=== PATIENT | female | born 1940 | race Caucasian/White ===

== ENCOUNTER → 2017-08-30 11:27 | Outpatient (CLI) | payer MEDICARE, SELFPAY ==
--- NOTE | 2017-08-30 11:34 | DI.RAD.S_ITS ---
PROCEDURE: XR CERVICAL SPINE 4V OR 5V INDICATIONS: cervical stenosis with upper extremity paresthesias TECHNIQUE: 5 views of the cervical spine acquired. COMPARISON: None. FINDINGS: Bones: No fractures or dislocations to the C7 level. Oblique images demonstrate bony foraminal stenoses at C5-6 and C6-7 bilaterally. There is disc degeneration and mild spondylosis as well as facet arthropathy at C3-4, C4-5, C5-6, C6-7 and C7-T1. Grade 1 anterolisthesis at C5-6. Soft tissues: No prevertebral soft tissue swelling. IMPRESSION: 1. Cervical lordosis is maintained. No fractures identified. Grade 1 anterolisthesis C5-6 is likely degenerative. 2. Multilevel degenerative disc disease and facet arthropathy, appearing most marked at C6-7. 3. Foraminal encroachment by hypertrophic changes C5-6 and C6-7, left greater than right. Dictated by: Daniel Nobles M.D. on 08/30/2017 at 12:02 Approved by: Daniel Nobles M.D. on 08/30/2017 at 12:06
--- NOTE | 2017-08-30 11:34 | DI.MRI.S_ITS ---
PROCEDURE: MR CERVICAL SPINE WO CON INDICATIONS: cervical stenosis with upper extremity paresthesias TECHNIQUE: Noncontrast sagittal T1 spin echo and T2 fast spin echo, sagittal STIR, foraminal oblique sagittal T2 fast spin echo, and axial gradient echo or T2 fast spin echo through the cervical spine. COMPARISON: [facility], RG, XR C-SPINE 2-3V, 03/12/2005, 8:23. [facility], CR, XR CERVICAL SPINE 4V OR 5V, 08/30/2017, 11:13. FINDINGS: Image quality: Excellent. Alignment and Curvature: There is trace anterolisthesis of C3 on C4, C4 on C5, C5 on C6, C7 on T1, T1 on T2, Grade I T2 on T3. Bone Marrow: Marrow demonstrates normal overall signal. Spinal Cord: Visualized spinal cord has normal size and signal. No cerebellar tonsillar herniation. Paraspinous Soft Tissues: No paravertebral masses. Prevertebral soft tissues are normal in thickness. Discs: Moderate to severe desiccation is present throughout the cervical spine, most severe at C5-6 and C6-7. C2-C3: No disc bulge, spinal stenosis or foraminal narrowing. C3-C4: Mild disc bulge without spinal stenosis. Moderate bilateral foraminal narrowing with uncovertebral hypertrophy. C4-C5: Mild disc bulge without spinal stenosis. Mild to moderate right and moderate left foraminal narrowing with uncovertebral hypertrophy. C5-C6: Mild disc bulge without spinal stenosis. Moderate bilateral foraminal narrowing with uncovertebral hypertrophy. C6-C7: Mild disc bulge without spinal stenosis. Severe left and moderate right foraminal narrowing with uncovertebral hypertrophy. C7-T1: No disc bulge or spinal stenosis. Mild left foraminal narrowing with uncovertebral hypertrophy. IMPRESSION: 1. Multilevel disc bulges. 2. No spinal stenosis. 3. Significant multilevel foraminal narrowing severe at C6-7 predominantly secondary to uncovertebral arthropathy. Dictated by: Sally Ch M.D. on 08/30/2017 at 15:26 Approved by: Sally Ch M.D. on 08/30/2017 at 15:32
== END ==
PROVIDERS: PCP Internal Medicine; Visit Provider Physical Medicine & Rehabilitation
DX: M48.02 Spinal stenosis, cervical region (principal); R20.2 Paresthesia of skin; M50.222 Other cervical disc displacement at C5-C6 level
CPT/HCPCS: 72050; 72141

== ENCOUNTER 2017-11-13 07:29 | Outpatient (CLI) | payer MEDICARE, SELFPAY ==
[2017-11-13] VITALS (9 sets, daily range): BP systolic 104–130; BP diastolic 68–81; PULSE 82–94; RESP 16–18; TEMP 37.2; O2SAT 95–98
--- NOTE | 2017-11-13 07:31 | DI.RAD.S_ITS ---
PROCEDURE: PAIN C/T INTERLAMINAR INJECT INDICATIONS: Cervical stenosis FINDINGS: Fluoroscopic spot filming was performed to verify placement of spinal needles at the C6-C7 level(s), as labeled on the films. Appropriate location(s) of the needle tip(s) was confirmed by injection of iodinated contrast. IMPRESSION: Fluoroscopy guidance for pain management. Dictated by: Heena Hernandez M.D. on 11/13/2017 at 14:28 Approved by: Heena Hernandez M.D. on 11/13/2017 at 14:28
--- NOTE | 2017-11-13 08:15 | PM.PROC.1 ---
Procedures Date/Time Date of procedure: 11/13/17 Time of procedure: 08:15 General Procedure description: PREOP DIAGNOSIS 1. CERVICAL STENOSIS, 2. CERVICAL HNP WITH UPPER EXTREMITY RADICULAR FEATURES, POST OP DIAGNOSIS 1. CERVICAL STENOSIS, 2. CERVICAL HNP WITH UPPER EXTREMITY RADICULAR FEATURES, PROCEDURES 1. FLUORSCOPICALLY GUIDED CONTRAST CONTROLLED INTERLAMINAR EPIDURAL STEROID INJECTION - C6/7 TL KISHAN PHYSICIAN: Shawn Jay, INDICATIONS Aubrie is referred by Dr. Perry for treatment of Cervical HNP with Upper Extremity Paresthesias. FINDINGS Cervical Stenosis due to disc deterioration and nerve root irritation and nerve root irritation DESCRIPTION OF PROCEDURE Fluoroscopically guided, contrast-controlled C6/7 translaminar epidural steroid injection with conscious sedation. Following denial of allergy and review of potential side effects and complications, including, but not necessarily limited to, infection, allergic reaction, local tissue breakdown, temporary as well as permanent nerve injury, stroke, paralysis, and possible , the patient indicated that patient understood and agreed to proceed. An informed consent document was signed by the patient, witnessed by a nurse, and placed in the patient's chart. Additionally, other treatment options including modalities, medications, and physical therapy were reviewed with the patient. After review of previous anaesthesic history and IV conscious sedation the patient was deemed safe to proceed with todays procedure with IV conscious sedation as ASA class II designation. Safety time-out was performed to confirm patient ID, procedure to be performed and site of procedure. IV sedation was accomplished with a combination of 4mg of Versed administered by the RN after DO order, titrated to patient comfort during the course of the procedure while the patient remained responsive to all verbal commands. In the prone position, following sterile prep and drape of the cervical region, the C6/7 translaminar space was identified fluoroscopically. The skin was anesthetized via a 25-gauge 1.5-inch needle with 1% lidocaine solution. At this point, a 25-gauge, 2.5-inch short bevel spinal needle was atraumatically introduced and advanced under fluoroscopic guidance into epidural space at the C6/7 translaminar space. Depth was confirmed on lateral view. Radiological data, including multiple fluoroscopic views of the cervical spine, reveal a spinal needle at the C6/7 translaminar space. Lateral views then show placement of the needle in the epidural space. Subsequent views show contrast material flowing superiorly and inferiorly in the epidural space. DSA fluoroscopy with live contrast injection, once again, confirmed no vascular or intrathecal uptake. At this point, using loss of resistance technique with saline and air, the epidural space was entered. Following negative aspiration, injection of approximately 1.5 cc of Isovue-200 with live fluoroscopy in the AP view confirmed epidural flow in the epidural space without vascular or intrathecal uptake observed. Subsequently, a test dose of 1 cc of 1% lidocaine solution was injected and patient was observed for two minutes without signs or symptoms of complications, including abdominal pain, shortness of breath, bilateral upper or lower extremity weakness, nausea and vomiting, prior to steroid injection. At this point, 3 cc or 30 mg of dexamethasone was then injected without incident. The patient tolerated the procedure well without signs or symptoms of complications prior to being transferred to the recovery area for further monitoring, The patient was then transferred to the recovery area where they were observed for an appropriate period of time after the injection. The patient reported a VAS score of 6 prior to the procedure and a post-procedure VAS of 0. Total Fluoroscopy Time: 37.0 seconds Total Conscious Time: 24min POST OP INSTRUCTIONS The patient was provided a Pain Log to continue to record their response to the target-specific procedure prior to follow-up visit with the referring provider. Additionally, specific post-injection care instructions and a contact number to our office were provided if concerns arise regarding possible complications associated with the procedure are suspected. Shawn Jay, Complications: none
[2017-11-13] MEDS: MIDAZOLAM 5 MG/5 ML VIAL IV (08:42)
[2017-11-13] MEDS: IOPAMIDOL 15 ML VIAL 3 ML INJ (08:54)
[2017-11-13] MEDS: DEXAMETHASONE 10 MG/ML VIAL 30 MG INJ (08:54)
[2017-11-13] MEDS: LIDOCAINE 1% 20 ML INJ 5 ML INJ (08:54)
--- NOTE | 2017-11-14 14:01 | PC.NURSE ---
POST PROCEDURE CALL MADE. CONTACTED PT. PT STATES SHE IS FEELING BETTER AND DENIES QUESTIONS/CONCERNS.
== END 2017-11-13 09:58 ==
LOC: RAD 07:30
PROVIDERS: PCP Internal Medicine; Visit Provider Physical Medicine & Rehabilitation
DX: M48.02 Spinal stenosis, cervical region (principal); M50.123 Cervical disc disorder at C6-C7 level with radiculopathy
CPT/HCPCS: 62321; 99152; 99153; J1100; J2250

== ENCOUNTER → 2017-12-05 11:59 | Outpatient (CLI) | payer MEDICARE, SELFPAY ==
--- NOTE | 2017-12-05 | DI.CT.S_ITS ---
PROCEDURE: CT HEAD/BRAIN WO CON INDICATIONS: INJURY OF HEAD TECHNIQUE: Noncontrast 4.5 mm thick angled axial sections acquired from the foramen magnum to the vertex, with coronal and sagittal reformats. For radiation dose reduction, the following was used: automated exposure control, adjustment of mA and/or kV according to patient size. COMPARISON: [facility], , STROKE PROTOCOL, 10/31/2010, 12:35. FINDINGS: Image quality: Excellent. CSF spaces: Basal cisterns are patent. No extra-axial fluid collections. Ventricles are moderately prominent, similar to the prior study. There is mild parenchymal volume loss.. Brain: No midline shift. No intracranial masses or hemorrhage. Bella-white matter interface is normal. Confluent areas of low attenuation are seen within the periventricular and deep white matter of the supratentorial brain. Skull and face: Calvarium and visualized facial bones are intact, without suspicious lesions. Sinuses: Visualized sinuses and mastoids are clear. IMPRESSION: 1. No acute intracranial hemorrhage. 2. Chronic small vessel ischemic changes and parenchymal volume loss have a similar overall appearance to the examination from 2000. Dictated by: Danny Green M.D. on 12/05/2017 at 11:18 Approved by: Danny Green M.D. on 12/05/2017 at 11:20
== END ==
PROVIDERS: PCP Internal Medicine; Visit Provider Internal Medicine
DX: S09.90XA Unspecified injury of head, initial encounter (principal)
CPT/HCPCS: 70450

== ENCOUNTER → 2017-12-11 19:16 | Outpatient (CLI) | payer MEDICARE, SELFPAY ==
--- NOTE | 2017-12-11 19:17 | DI.MRI.S_ITS ---
PROCEDURE: MR HEAD/BRAIN WO CON INDICATIONS: head injury TECHNIQUE: Noncontrast axial T1 spin echo, axial T2 fast spin echo, sagittal and axial FLAIR, coronal T2 fast spin echo, axial gradient echo, axial diffusion and ADC through the brain. COMPARISON: [facility], CT, CT HEAD/BRAIN WO CON, 12/05/2017, 11:58. FINDINGS: Image quality: Excellent. CSF Spaces: Basal cisterns are patent. No extra-axial fluid collections. Ventricles are normal in size and shape. Brain: No intracranial masses or hemorrhage. Bella/white matter interface is normal. Brainstem appears normal. Diffusion-weighted images demonstrate no acute ischemic insult. No chronic ischemic insults. Normal intravascular flow voids are present. Skull and face: Calvarium has normal marrow signal. Orbits appear normal. Sinuses: Sinuses and mastoids are clear. IMPRESSION: Moderate microvascular atherosclerotic change in the deep white matter of each hemisphere, expected for age. No traumatic brain injury or intracranial hemorrhage is found. No skull fracture is suspected. Dictated by: Leonidas Mckenzie M.D. on 12/12/2017 at 8:01 Approved by: Leonidas Mckenzie M.D. on 12/12/2017 at 8:03
== END ==
PROVIDERS: PCP Internal Medicine; Visit Provider Internal Medicine
DX: S09.90XA Unspecified injury of head, initial encounter (principal); R51 Headache
CPT/HCPCS: 70551

== ENCOUNTER → 2018-03-29 09:56 | Outpatient (CLI) | payer MEDICARE, OTHER, SELFPAY ==
--- NOTE | 2018-03-29 | DI.RAD.S_ITS ---
PROCEDURE: XR KUB INDICATIONS: KIDNEY STONES TECHNIQUE: One view of the abdomen acquired. COMPARISON: [facility], CT, KIDNEY/ URETER/BLADDER, 01/22/2017, 13:07. [facility], CR, KUB XRAY (1 VIEW ABDOMEN), 03/19/2017, 8:43 FINDINGS: Surgical changes and devices: None. Bowel: Bowel gas pattern is normal. Soft tissues: No shifting bilateral renal stones are seen, the largest seen on the right measuring 6-7 mm. Visualized solid organ contours appear normal in size. Bones: No suspicious bony lesions. Mild levoconvex scoliotic curvature is noted. Age-appropriate bony degenerative changes are seen. Hip degenerative changes are seen. IMPRESSION: Nonobstructing kidney stones are seen. If it would be helpful for clinical management decision making, please consider a dedicated noncontrast CT of the abdomen and pelvis for further evaluation. Dictated by: Morris Rodriguez M.D. on 03/29/2018 at 9:54 Approved by: Morris Rodriguez M.D. on 03/29/2018 at 9:56
[2018-03-29 14:31] LABS: Bacteria Urine None Seen; RBC Urine None Seen (0-5/HPF)
[2018-03-29 15:27] LABS: Appearance Urine UA CLEAR; Bilirubin Urine UA NEGATIVE (NEGATIVE); Color Urine UA YELLOW; Glucose Urine UA NEGATIVE (Negative); Ketones Urine UA NEGATIVE (NEGATIVE); Leukocyte Esterase Urine UA TRACE (NEGATIVE); Nitrite Urine UA NEGATIVE (Negative); Occult Blood Urine UA TRACE-INTACT (Negative); Protein Urine UA NEGATIVE (Negative); Specific Gravity Urine UA <=1.005 (1.000-1.035); Urobilinogen Urine UA 0.2 E.U./dL (0.2)
[2018-03-29 15:33] LABS: Culture Indicated Urine Specimen Cultured; Squamous Epithelial Cell Urine None Seen; WBC Urine 1-5/HPF (0-5/HPF)
== END ==
PROVIDERS: PCP Internal Medicine; Visit Provider Specialist
DX: N20.0 Calculus of kidney (principal)
CPT/HCPCS: 74018; 81001; 87086

== ENCOUNTER → 2018-04-02 08:49 | Outpatient (CLI) | payer MEDICARE, OTHER, SELFPAY ==
--- NOTE | 2018-04-02 | DI.CT.S_ITS ---
PROCEDURE: CT KIDNEY URETER BLADDER (KUB) INDICATIONS: KIDNEY STONES TECHNIQUE: Noncontrast 5 mm thick sections acquired from the diaphragms to the symphysis. 5 mm thick coronal and sagittal reformats were then performed. For radiation dose reduction, the following was used: automated exposure control, adjustment of mA and/or kV according to patient size. COMPARISON: [facility], CT, KIDNEY/ URETER/BLADDER, 01/22/2017, 13:07. FINDINGS: Image quality: Excellent. Lung bases: Lung bases are clear. Heart size is normal. Urinary system: On the left, there are numerous left renal calculi measuring up to 5 mm image 43 series 2. There is also dilatation of the left extrarenal pelvis although no definite left ureteral calculus is currently visualized. No bladder calculi are seen. There is a punctate right pelvic ulceration near the course of the right ureter on image 72 series 2 which is thought to be extraluminal probably phlebolith however multiple mid and proximal right ureteral calculi are seen for example measuring up to 6 mm on image 57 series 2 although this could be 2 adjacent smaller calculi. Additional proximal right ureteral catheter is measuring 5 mm on image 45 series 2. There is moderate to severe right hydronephrosis. Additional sub-5 mm right renal calculi are present measuring up to approximately 3 mm. No perinephric stranding is seen. Other solid organs: Liver is normal in size. Gallbladder negative. Pancreas is normal in contours. Spleen is normal in size. No adrenal nodules. Peritoneum and bowel: Unenhanced bowel loops demonstrate normal wall thickness and caliber. No free fluid or air. Appendix not clearly identified however no suspicious right lower quadrant or pericecal inflammatory changes. Nodes and vessels: No retroperitoneal or mesenteric adenopathy by size criteria. Aorta and inferior vena cava are normal in caliber. Abdominal wall: No ventral hernias. Pelvis: No free pelvic fluid. No inguinal hernias or adenopathy. Bones: No suspicious bony lesions. Extensive multilevel discogenic changes and facet arthropathy. No vertebral body compression fractures. IMPRESSION: Moderate to severely obstructive multiple right ureteral calculi as detailed above. These are located within the mid and proximal segments. Additional punctate right pelvic calcification near the course of the distal right ureter is thought to be extraluminal probably phlebolith. Additional bilateral 5 mm or less nephrolithiasis. Prominent left extrarenal pelvis however this appears to be improved since 01/22/17 and no left ureteral calculi are currently visualized. Dictated by: Marco A Rose M.D. on 04/02/2018 at 8:30 Approved by: Marco A Rose M.D. on 04/02/2018 at 8:40
== END ==
PROVIDERS: PCP Internal Medicine; Visit Provider Specialist
DX: N13.2 Hydronephrosis with renal and ureteral calculous obstruction (principal)
CPT/HCPCS: 74176

== ENCOUNTER → 2018-04-12 09:27 | Outpatient (CLI) | payer MEDICARE, OTHER, SELFPAY ==
--- NOTE | 2018-04-12 | DI.RAD.S_ITS ---
PROCEDURE: XR KUB INDICATIONS: KIDNEY STONES TECHNIQUE: One view of the abdomen acquired. COMPARISON: [facility], CR, XR KUB, 03/29/2018, 10:25. FINDINGS: Surgical changes and devices: None. Bowel: Bowel gas pattern is normal. Soft tissues: Bilateral kidney stones are again noted, unchanged. Largest right-sided stone measures approximately 6 mm. The largest left sided stone measures approximately 5 mm. Visualized solid organ contours appear normal in size. Bones: No suspicious bony lesions. IMPRESSION: Unchanged findings. Bilateral kidney stones. Dictated by: Raghav Mcknight M.D. on 04/12/2018 at 11:05 Approved by: Raghav Mcknight M.D. on 04/12/2018 at 11:07
== END ==
PROVIDERS: PCP Internal Medicine; Visit Provider Specialist
DX: N20.0 Calculus of kidney (principal)
CPT/HCPCS: 74018

== ENCOUNTER 2018-04-15 07:22 | Emergency (ER) | payer MEDICARE, OTHER, SELFPAY ==
[2018-04-15 07:30] VITALS: BP 142/68; PULSE 96; RESP 18; O2SAT 98; BMI 25.8
--- NOTE | 2018-04-15 07:32 | DI.RAD.S_ITS ---
PROCEDURE: XR SHOULDER RT MIN 2V INDICATIONS: Fall and Pain. TECHNIQUE: 3 views of the shoulder were acquired. COMPARISON: [facility], SHOULDER MINIMUM 2VIEW RIGHT, 11/10/2015, 16:11. [facility], SHOULDER MINIMUM 2VIEW RIGHT, 10/08/2012, 12:06. FINDINGS: Bones: There is mild widening of the right acromioclavicular joint which now measures 7 mm in width/separation, which is increased from comparison exam of 11/10/15 when it measured less than 2 mm in width/separation. There are mild degenerative change of the right shoulder including glenohumeral joint osteophyte formation and small calcifications along the lateral right humeral head that may represent the sequela of rotator cuff injury. Soft tissues: There is mild soft tissue swelling overlying the right acromioclavicular joint. IMPRESSION: Mild widening of the right acromioclavicular joint since comparison exam of 11/10/15, which may represent sequela of acromioclavicular joint injury/separation. Correlation with point tenderness recommended. Dictated by: David West M.D. on 04/15/2018 at 8:36 Approved by: David West M.D. on 04/15/2018 at 8:51
--- NOTE | 2018-04-15 07:43 | ED_ITS ---
HPI - Trauma General Chief Complaint: Extremity Injury, Upper Stated Complaint: FALL ON ICE TODAY, RIGHT SHOULDER PAIN Time Seen by Provider: 04/15/18 07:43 Source: patient and family Mode of arrival: ambulatory Limitations: no limitations History of Present Illness HPI narrative: 78-year-old female here for evaluation of right shoulder injury. She states she walked out to get the paper this morning as she was walking back in she slipped on the snow and ice and landed on her right shoulder. She did not hit her head. No loss of consciousness. Is not on anticoagulation. She was able to get up and walk afterwards. Her only symptoms or pain in her right shoulder. No prior injury to her shoulder. Related Data Home Medications Medication Instructions Recorded Confirmed CALCIUM CARBONATE (#CALCIUM) #0 09/30/11 12/17/17 Fish Oil 1,000 mg PO QDAY #0 tab 01/05/16 12/17/17 acetaminophen-codeine 1 tab PO #0 tab 01/05/16 12/17/17 amlodipine [Norvasc] 10 mg PO QDAY #0 01/05/16 12/17/17 biotin 5,000 mcg PO #0 01/05/16 12/17/17 celecoxib [Celebrex] 200 mg PO QDAY #0 01/05/16 12/17/17 doxazosin [Cardura] 8 mg PO #0 tab 01/05/16 12/17/17 gabapentin [Neurontin] 300 mg PO HS #0 01/05/16 12/17/17 losartan 50 mg PO QDAY #0 01/05/16 12/17/17 pneumoc 13-peggy conj-dip cr(PF) 0.5 ml IM X1 #1 ea 01/05/16 12/17/17 [Prevnar 13 (PF)] tramadol 50 mg PO QDAY #0 01/05/16 12/17/17 bupropion HCl SR 100 mg tablet,12 100 mg PO DAILY tab 08/24/17 12/17/17 hr sustained-release docusate sodium 100 mg capsule 100 mg PO BID 08/24/17 12/17/17 alendronate 70 mg tablet 70 mg PO QWEEK 10/04/17 12/17/17 Previous Rx's Medication Instructions Recorded nitrofurantoin monohyd/m-cryst 100 mg PO BIDCC #14 cap 01/05/17 [Macrobid] cyclobenzaprine 10 mg tablet 10 mg PO TID PRN #60 tab 01/15/18 acetaminophen-codeine 1 tab PO Q4-6H PRN #14 tab 04/15/18 [Tylenol-Codeine #3] Allergies Allergy/AdvReac Type Severity Reaction Status Date / Time losartan [Losartan] Allergy Intermediate HIVES Verified 04/15/18 07:30 lactose Allergy Mild RASH Verified 04/15/18 07:30 latex Allergy Mild ITCH Verified 04/15/18 07:30 aspirin AdvReac Mild N/V Verified 04/15/18 07:30 hydrocodone AdvReac Mild N/V Verified 04/15/18 07:30 oxycodone AdvReac Mild N/V Verified 04/15/18 07:30 Review of Systems Constitutional Denies fever(s), Denies frequent falls and Denies headache(s) Eyes Denies blurry vision and Denies diplopia ENT Ears, Nose, Mouth, and Throat: Denies headache(s) Cardiovascular Denies chest pain and Denies dyspnea Respiratory Denies dyspnea Gastrointestinal Gastrointestinal: Denies abdominal pain Musculoskeletal Denies myalgias and Reports arthralgias (Right shoulder pain) Integumentary/Breasts Denies lesions and Denies rash Neurologic Denies behavioral changes, Denies frequent falls and Denies headache(s) Psychiatric Denies behavioral changes Hematologic/Lymphatic Comments: Not on anticoagulation [facility] Medical History Hypertension (Acute) Surgical History No pertinent past surgical history (Acute) Social History Smoking Status: Never smoker Social History Smoking Status: Never smoker Exam Initial Vital Signs Initial Vital Signs: Vital Signs Pulse Rate 96 H 04/15/18 07:30 Respiratory Rate 18 04/15/18 07:30 Blood Pressure 142/68 H 04/15/18 07:30 Pulse Oximetry 98 04/15/18 07:30 Const General: cooperative, comfortable, well developed, well groomed and No acute distress Orientation: alert, awake and oriented x3 HENMT Head: normal to inspection and normocephalic Resp Effort & Inspection: normal respiratory effort Cardio Rate: regular rate Skin Lesions: no lesions Rashes: no rashes Neuro General: alert, awake and oriented x3 Cognition: normal cognition Speech: speech normal Extrem Other: Right hand unremarkable, right wrist unremarkable, right elbow unremarkable, patient able to pronate and supinate the right upper extremity. Able to flex and extend at the elbow. Unable to abduct the right shoulder. Has tenderness to palpation throughout the right shoulder. Psych Appearance: grossly normal and well kempt Course Orders Ordered: ED Orders 04/15/18 07:32 XR shoulder RT min 2V Stat Discontinued Medications Acetaminophen/Codeine Phosphate (Tylenol #3) 1 tab PO NOW ONE Stop: 04/15/18 08:05 Last Admin: 04/15/18 08:08 Dose: 1 tab Vital Signs - 8 hr 04/15/18 07:30 04/15/18 07:45 Pulse Rate 96 H Pulse Rate [Right Radial] 67 Respiratory Rate 18 Blood Pressure 142/68 H Pulse Oximetry 98 MDM - Trauma Imaging Data X-ray right shoulder: Radiologist's impression: PROCEDURE: XR SHOULDER RT MIN 2V INDICATIONS: Fall and Pain. TECHNIQUE: 3 views of the shoulder were acquired. COMPARISON: [facility], SHOULDER MINIMUM 2VIEW RIGHT, 11/10/2015, 16: 11. [facility], SHOULDER MINIMUM 2VIEW RIGHT, 10/08/2012, 12:06. FINDINGS: Bones: There is mild widening of the right acromioclavicular joint which now measures 7 mm in width/separation, which is increased from comparison exam of 11/10/15 when it measured less than 2 mm in width/separation. There are mild degenerative change of the right shoulder including glenohumeral joint osteophyte formation and small calcifications along the lateral right humeral head that may represent the sequela of rotator cuff injury. Soft tissues: There is mild soft tissue swelling overlying the right acromioclavicular joint. IMPRESSION: Mild widening of the right acromioclavicular joint since comparison exam of 11/10/15, which may represent sequela of acromioclavicular joint injury/ separation. Correlation with point tenderness recommended. Dictated by: David West M.D. on 04/15/2018 at 8:36 Approved by: David West M.D. on 04/15/2018 at 8:51 [facility] Narrative Medical decision making narrative: Patient is neurovascularly intact. Her physical exam and x-ray are concerning for an AC separation. She did not hit her head. No loss of conscious. No other injuries reported from the event. Patient stated that she can take Tylenol No. 3 and she was given that here in the emergency department. Will send her home with a prescription for this. She was given return precautions. She expressed understanding and agreement with plan. Discharge Plan Departure Patient Disposition: Home Clinical Impression: AC separation Instructions: How To Perform RICE (Rest, Ice, Compress, Elevate), DI for AC Joint Separation Activity Restrictions/Additional Instructions: The sling is okay for a short period of time. I do recommend that as much as possible you leave your arm out of the sling. Even short periods of time of immobilization of your shoulder can cause significant stiffness. Take the pain medication as needed. I would recommend that later today you contact your primary care doctor for a follow-up so if your symptoms do not improve you can discuss further evaluation and to discuss the indications for physical therapy. Prescriptions: New acetaminophen-codeine [Tylenol-Codeine #3] 300-30 mg tablet 1 tab PO Q4-6H PRN (Reason: pain) Qty: 14 RF: 0 No Action CALCIUM CARBONATE (#CALCIUM) Qty: 0 RF: 0 amlodipine [Norvasc] 5 MG tablet 10 mg PO QDAY Qty: 0 RF: 0 acetaminophen-codeine 60 MG/300 MG tablet 1 tab PO Qty: 0 RF: 0 biotin 2,500 MCG capsule 5,000 mcg PO Qty: 0 RF: 0 celecoxib [Celebrex] 200 MG capsule 200 mg PO QDAY Qty: 0 RF: 0 doxazosin [Cardura] 8 MG tablet 8 mg PO Qty: 0 RF: 0 gabapentin [Neurontin] 300 MG capsule 300 mg PO HS Qty: 0 RF: 0 Fish Oil 1,000 mg PO QDAY Qty: 0 RF: 0 losartan 50 MG tablet 50 mg PO QDAY Qty: 0 RF: 0 tramadol 50 MG tablet 50 mg PO QDAY Qty: 0 RF: 0 pneumoc 13-peggy conj-dip cr(PF) [Prevnar 13 (PF)] 0.5 ML syringe 0.5 ml IM X1 Qty: 1 RF: 0 nitrofurantoin monohyd/m-cryst [Macrobid] 100 MG capsule 100 mg PO BIDCC Qty: 14 RF: 0 cyclobenzaprine 10 mg tablet 10 mg PO TID PRN (Reason: muscle spasm) Qty: 60 RF: 1 bupropion HCl 100 mg tablet extended release 12 hr 100 mg PO DAILY RF: 0 docusate sodium 100 mg capsule 100 mg PO BID RF: 0 alendronate [Fosamax] 70 mg tablet 70 mg PO QWEEK RF: 0
[2018-04-15 07:45] VITALS: PULSE 67
[2018-04-15] MEDS: CODEINE/ACETAMINOPHEN 30/300 TABLET 1 TAB PO (08:08)
[2018-04-15 09:00] VITALS: BP 148/62; PULSE 78; RESP 18; O2SAT 99
== END 2018-04-15 09:01 | disposition home or self-care (01) ==
PROVIDERS: Emergency Provider Emergency Medicine; PCP Internal Medicine
DX: S43.101A Unspecified dislocation of right acromioclavicular joint, initial encounter (principal); W01.0XXA Fall on same level from slipping, tripping and stumbling without subsequent striking against object, initial encounter
CPT/HCPCS: 73030; 99282; 99283

== ENCOUNTER → 2018-05-14 09:19 | Outpatient (CLI) | payer MEDICARE, OTHER, SELFPAY ==
--- NOTE | 2018-05-14 | DI.RAD.S_ITS ---
PROCEDURE: XR KUB INDICATIONS: KIDNEYS STONES TECHNIQUE: One view of the abdomen acquired. COMPARISON: [facility], CR, XR KUB, 04/12/2018, 9:31. FINDINGS: Surgical changes and devices: None. Bowel: Bowel gas pattern is normal. There is a large amount of stool in colon. Soft tissues: There are multiple renal calculi bilaterally. There is a 7 mm stone in the proximal right ureter. Several stones are noted in the distal right ureter measuring up to 5 mm. A ureteral stent is noted. Visualized solid organ contours appear normal in size. Bones: No suspicious bony lesions. IMPRESSION: 1. Suspect multiple renal calculi bilaterally. 2. Multiple right ureteral stones. 3. A right ureteral stent in expected position. Dictated by: Heena Hernandez M.D. on 05/14/2018 at 12:04 Approved by: Heena Hernandez M.D. on 05/14/2018 at 12:07
== END ==
PROVIDERS: PCP Internal Medicine; Visit Provider Specialist
DX: N20.0 Calculus of kidney (principal); N20.1 Calculus of ureter; Z96.0 Presence of urogenital implants
CPT/HCPCS: 74018

== ENCOUNTER → 2018-05-16 09:22 | Outpatient (CLI) | payer MEDICARE, OTHER, SELFPAY ==
--- NOTE | 2018-05-16 | DI.CT.S_ITS ---
PROCEDURE: CT HEAD/BRAIN WO CON INDICATIONS: DELAYED SUBDURMAL HEMATOMA TECHNIQUE: Noncontrast 4.5 mm thick angled axial sections acquired from the foramen magnum to the vertex, with coronal and sagittal reformats. For radiation dose reduction, the following was used: automated exposure control, adjustment of mA and/or kV according to patient size. COMPARISON: [facility], MR, MR HEAD/BRAIN WO CON, 12/11/2017, 19:43. [facility], CT, CT HEAD/BRAIN WO CON, 12/05/2017, 11:58. FINDINGS: Image quality: Excellent. CSF spaces: Basal cisterns are patent. No extra-axial fluid collections. The ventricles are symmetric in size and shape. Brain: No intracranial bleeds or masses. There is cerebral volume loss for age, with resultant ventricular and sulcal prominence. There are periventricular and deep white matter chronic small vessel ischemic changes. There is intracranial internal carotid artery atherosclerosis. Skull and face: Calvarium and visualized facial bones appear intact, without suspicious lesions. Sinuses: Visualized sinuses and mastoids are clear. IMPRESSION: 1. No acute intracranial process. No visualized hemorrhage. 2. Moderate atrophy and chronic microvascular ischemic changes. Dictated by: Sally Ch M.D. on 05/16/2018 at 10:08 Approved by: Sally Ch M.D. on 05/16/2018 at 10:11
== END ==
PROVIDERS: PCP Internal Medicine; Visit Provider Internal Medicine
DX: S00.93XA Contusion of unspecified part of head, initial encounter (principal)
CPT/HCPCS: 70450

== ENCOUNTER → 2018-05-22 09:32 | Outpatient (CLI) | payer MEDICARE, OTHER, SELFPAY ==
--- NOTE | 2018-05-22 | DI.MG.S_ITS ---
BILATERAL DIGITAL SCREENING MAMMOGRAM 3D/2D WITH CAD: 05/22/2018 CLINICAL: Routine screening. Family history of breast cancer. Comparison is made to exams dated: 05/21/2017 mammogram, 04/03/2016 mammogram, 04/02/2015 mammogram, 04/01/2014 mammogram, 04/09/2013 mammogram, and 04/08/2012 mammogram - [facility]. There are scattered fibroglandular elements in both breasts. Current study was also evaluated with a Computer Aided Detection (CAD) system. No significant masses, calcifications, or other findings are seen in either breast. There has been no significant interval change. IMPRESSION: NEGATIVE There is no mammographic evidence of malignancy. A 1 year screening mammogram is recommended. This exam was interpreted at Station ID: [id number]. NOTE: For mammograms, a report in lay terms will be sent to the patient. Approximately 15% of breast malignancies will not be visualized mammographically. In the management of a palpable breast mass, a negative mammogram must not discourage biopsy of a clinically suspicious lesion. Electronically Signed By: David duran/familia:05/22/2018 12:48:36 letter sent: Normal Exam ACR BI-RADS Category 1: Negative [id number]
== END ==
PROVIDERS: PCP Internal Medicine; Visit Provider Internal Medicine
DX: Z12.31 Encounter for screening mammogram for malignant neoplasm of breast (principal); Z80.3 Family history of malignant neoplasm of breast
CPT/HCPCS: 77063; 77067

== ENCOUNTER → 2018-06-24 11:52 | Outpatient (CLI) | payer MEDICARE, OTHER, SELFPAY ==
--- NOTE | 2018-06-24 | DI.RAD.S_ITS ---
PROCEDURE: XR KUB INDICATIONS: KIDNEY STONES TECHNIQUE: One view of the abdomen acquired. COMPARISON: [facility], CR, XR KUB, 05/14/2018, 9:23. FINDINGS: Surgical changes and devices: Right-sided ureteral stent is again seen and is unchanged. Bowel: Bowel gas pattern is normal. Soft tissues: Previously noted 7 mm stone in proximal right ureter is not definitively seen on the current study. Previously noted smaller calcifications in the region of right distal ureter are grossly unchanged and measures up to 5 mm in size. Stable calcifications in the region of left lower pole kidney are again seen, unchanged from prior study. Visualized solid organ contours appear normal in size. Bones: No suspicious bony lesions. IMPRESSION: Previously described 7 mm right proximal ureteral stone is not definitely seen on the current study. Suggestion of right distal ureteral stone versus phlebolith unchanged from prior study. Stable appearing calcifications in the region of lower pole left kidney. Dictated by: Memo Shepard M.D. on 06/24/2018 at 12:32 Approved by: Memo Shepard M.D. on 06/24/2018 at 12:34
== END ==
PROVIDERS: PCP Internal Medicine; Visit Provider Specialist
DX: N20.0 Calculus of kidney (principal)
CPT/HCPCS: 74018

== ENCOUNTER → 2018-10-08 09:49 | Outpatient (CLI) | payer MEDICARE, OTHER, SELFPAY ==
--- NOTE | 2018-10-08 | DI.RAD.S_ITS ---
PROCEDURE: XR KUB INDICATIONS: Kidney stones TECHNIQUE: One view of the abdomen acquired. COMPARISON: [facility], CT, CT KIDNEY URETER BLADDER (KUB), 04/02/2018, 8:53. [facility], CR, XR KUB, 05/14/2018, 9:23. [facility], CR, XR KUB, 06/24/2018, 12:05. FINDINGS: Surgical changes and devices: The right ureter stent is seen on the last exam has been removed. Bowel: Bowel gas pattern is normal. Soft tissues: The distal right ureteral stones seen on the last exam are no longer visualized. Right renal contour is obscured by overlying stool scattered. Possible left inferior pole renal stones. Visualized solid organ contours appear normal in size. Bones: No suspicious bony lesions. IMPRESSION: 1. Removal of the right ureter stent. No definitive residual right renal or ureteral stones, but the right kidney is obscured by overlying stool. 2. Possible left inferior pole renal stones. Dictated by: Heena Hernandez M.D. on 10/08/2018 at 15:32 Approved by: Heena Hernandez M.D. on 10/08/2018 at 15:37
== END ==
PROVIDERS: PCP Internal Medicine; Visit Provider Specialist
DX: N20.0 Calculus of kidney (principal); Z46.6 Encounter for fitting and adjustment of urinary device
CPT/HCPCS: 74018

== ENCOUNTER → 2019-03-21 13:31 | Outpatient (CLI) | payer MEDICARE, OTHER, SELFPAY ==
--- NOTE | 2019-03-21 | DI.MRI.S_ITS ---
PROCEDURE: MR SHOULDER RT WO CON INDICATIONS: Benign neoplasm, unspecified site TECHNIQUE: Noncontrast oblique coronal T2 fast spin echo with fat saturation, oblique sagittal T1 spin echo and T2 fast spin echo with fat saturation, axial T1 spin echo and T2 fast spin echo with fat saturation through the shoulder. COMPARISON: None. FINDINGS: Image quality: Excellent. Rotator cuff: Tendinosis and low to moderate grade articular and bursal surface partial-thickness tear involving distal supraspinatus and infraspinatus is seen at their insertion on greater tuberosity of humeral head extending to musculotendinous junction. There is distal subscapularis tendinosis. Sagittal images demonstrate no significant muscle atrophy. Bones and bursae: No bone marrow contusions or fractures. Moderate acromioclavicular joint and glenohumeral joint osteoarthritic changes are seen. Small to moderate amount of joint effusion and subacromial subdeltoid bursal fluid is noted. Capsule and soft tissues: In the absence of intra-articular contrast, there is suggestion of superior anterior labral tear at 12 to 2:00 position. There is also suggestion of anterior inferior labral tear at 4 to 6:00 position. The glenohumeral ligaments appear intact. Tendinosis and moderate grade partial-thickness tear involving proximal intra-articular portion of long head of biceps tendon is seen. The rotator interval appears normal, without fibrosis. The coracohumeral ligament is normal in thickness. IMPRESSION: 1. Tendinosis and low to moderate grade articular and bursal surface partial-thickness tear involving distal supraspinatus and infraspinatus extending to musculotendinous junction. Distal infras subscapularis tendinosis. 2. Moderate acromioclavicular joint and glenohumeral joint osteoarthritis. Small to moderate amount of joint fluid in subacromial subdeltoid bursal fluid. No definite intra-articular loose body. 3. Suggestion of superior anterior labral tear at 12 to 2:00 position and anterior inferior labral tear 4 to 6:00 position. 4. Tendinosis and moderate grade partial-thickness involving proximal intra-articular portion of long head biceps tendon. Dictated by: Memo Shepard M.D. on 03/21/2019 at 16:10 Approved by: Memo Shepard M.D. on 03/21/2019 at 16:17
== END ==
PROVIDERS: PCP Internal Medicine; Visit Provider Internal Medicine
DX: M25.511 Pain in right shoulder (principal); G89.29 Other chronic pain; D36.9 Benign neoplasm, unspecified site; M75.111 Incomplete rotator cuff tear or rupture of right shoulder, not specified as traumatic; S46.111A Strain of muscle, fascia and tendon of long head of biceps, right arm, initial encounter; M19.011 Primary osteoarthritis, right shoulder
CPT/HCPCS: 73221

== ENCOUNTER 2019-05-05 06:43 | Day surgery (SDC) | payer MEDICARE, OTHER, SELFPAY ==
[2019-05-05 07:27] VITALS: BP 152/87; PULSE 88; RESP 15; TEMP 36.8; O2SAT 97; BMI 25.0
--- NOTE | 2019-05-05 07:35 | PM.HP.1 ---
History of Present Illness History of Present Illness Date Patient Seen: 05/05/19 Time Patient Seen: 07:35 Chief complaint: [id number] Narrative: Patient presents for colorectal screening. They had it endoscopic resection of an adenomatous polyp March of 2017. No personal history of colon cancer. Mother had colon cancer. On further history denies any recent gastrointestinal symptoms. No nausea, vomiting, abdominal pain, loss of appetite, unexplained weight loss, change in bowel habits, diarrhea, constipation, melena, hematochezia, or bright red blood per rectum. Patient History Medical History (Updated 05/05/19 @ 07:36 by Mauricio King MD) Hypertension (Acute) Surgical History (Updated 05/05/19 @ 07:41 by Mauricio King MD) H/O oophorectomy (Inactive) No pertinent past surgical history (Acute) Family & Social History Family History (Updated 05/05/19 @ 07:41 by Mauricio King MD) Mother Cancer Tobacco & Substance use: Smoking Status Never smoker Meds Home Medications and Allergies Home Medications Medication Instructions Recorded Confirmed Type CALCIUM CARBONATE (#CALCIUM) 1 tab PO DAILY #0 09/30/11 05/05/19 History Fish Oil 1,000 mg PO QDAY #0 tab 01/05/16 05/05/19 History Prevnar 13 (PF) 0.5 ml IM X1 #1 ea 01/05/16 05/05/19 History acetaminophen-codeine 1 tab PO BID #0 tab 01/05/16 05/05/19 History amlodipine [Norvasc] 10 mg PO QDAY #0 01/05/16 05/05/19 History biotin 5,000 mcg PO BID #0 01/05/16 05/05/19 History celecoxib [Celebrex] 200 mg PO QDAY #0 01/05/16 05/05/19 History doxazosin [Cardura] 8 mg PO DAILY PRN #0 tab 01/05/16 05/05/19 History gabapentin [Neurontin] 300 mg PO HS #0 01/05/16 05/05/19 History losartan 50 mg PO QDAY #0 01/05/16 05/05/19 History tramadol 50 mg PO QDAY PRN #0 01/05/16 05/05/19 History bupropion HCl 100 mg tablet,12 hr 100 mg PO DAILY tab 08/24/17 05/05/19 History sustained-release docusate sodium 100 mg capsule 100 mg PO BID 08/24/17 05/05/19 History cyclobenzaprine 10 mg tablet 10 mg PO TID PRN #60 tab 04/07/19 05/05/19 Rx nitrofurantoin monohyd/m-cryst 100 mg PO BIDCC PRN 05/05/19 05/05/19 History [Macrobid] Allergies Allergy/AdvReac Type Severity Reaction Status Date / Time losartan [Losartan] Allergy Intermediate HIVES Verified 05/05/19 07:20 lactose Allergy Mild RASH Verified 05/05/19 07:20 latex Allergy Mild ITCH Verified 05/05/19 07:20 aspirin AdvReac Mild N/V Verified 05/05/19 07:20 hydrocodone AdvReac Mild N/V Verified 05/05/19 07:20 oxycodone AdvReac Mild N/V Verified 05/05/19 07:20 Review of Systems Review of Systems Narrative: A 10 point review of systems is negative except as noted in the HPI Exam Narrative Exam Narrative: General-no acute distress, well nourished HEENT-moist mucous membranes, no scleral icterus Neck-supple, no lymphadenopathy Chest- non labored respirations, clear to auscultation bilaterally Cardiac-regular rate no peripheral edema Abdomen-soft, nontender, non distended Extremities-warm, well perfused Neurological-alert and oriented, no focal deficits Assessment & Plan Assessment and plan (1) Screening for colon cancer: Current visit: Yes Status: Acute (2) H/O oophorectomy: Current visit: Yes Status: Inactive Assessment & Plan narrative: The patient requires colorectal screening and colonoscopy is recommended. Technical details were discussed. Risks, benefits, alternatives explained. Risks including but not limited to myocardial infarction, aspiration, bleeding, pain, missed lesion, incomplete examination, need for further radiographic studies, colonic perforation, and need for major abdominal surgery were discussed. All questions were answered to their satisfaction, and they are in agreement with this plan.
[2019-05-05] MEDS: SODIUM CHLORIDE 0.9% 1,000 ML 200 ML IV (07:37)
--- NOTE | 2019-05-05 07:43 | PM.OP.ENDO ---
Operative Date/Time/Diagnoses Date of procedure: 05/05/19 Time of procedure: 07:43 Pre-op diagnosis: History adenomatous polyp Family history colon cancer Post-op diagnosis: same Procedure & Clinicians Study performed: Colonoscopy Same procedure as scheduled: Yes Indications: History adenomatous polyp 03/2017 Mother colon cancer Surgeon: Mauricio King Procedure Notes SCOAP/Timeout: Performed Procedure in detail: Patient placed in left lateral decubitus position. Time out was performed. Procedural sedation was administered with Versed and Fentanyl. A rectal exam demonstrated no external hemorrhoids no internal masses. Colonoscopy scope was placed into the rectum and advanced through the colon to the cecum. The ileocecal valve was identified. The scope was then slowly withdrawn examining colon thoroughly in all directions. The colonoscopy was notable for the following 1. Sigmoid diverticulosis 2. No masses or polyps 3. Quality of prep excellent Scope withdrawal time: 6 Sedation minutes: 23 Findings: diverticulosis Specimen(s): none sent Complications: none Impression: Diverticulosis Post-procedure Recommendations: Colonscopy in 5 years Disposition: same day surgery
[2019-05-05] MEDS: fentaNYL 250 MCG/5 ML INJ IV (07:44)
[2019-05-05] MEDS: MIDAZOLAM 5 MG/ML VIAL 4 MG IV (07:45)
[2019-05-05 08:14] VITALS: BP 123/66; PULSE 89; RESP 16; TEMP 36.7; O2SAT 95
[2019-05-05 08:18] VITALS: BP 129/74; PULSE 91; RESP 16; O2SAT 96
--- NOTE | 2019-05-05 08:22 | SUR.PHASEI ---
Stable PACU stay.
[2019-05-05 08:24] VITALS: BP 131/75; PULSE 90; RESP 22; TEMP 36.7; O2SAT 97
[2019-05-05 08:40] VITALS: BP 131/78; PULSE 87; RESP 20; TEMP 36.6; O2SAT 98
== END 2019-05-05 08:40 | disposition home or self-care (01) ==
PROVIDERS: PCP Internal Medicine; Referring Provider Surgery; Visit Provider Surgery
PROC: 0DJD8ZZ Inspection of Lower Intestinal Tract, Via Natural or Artificial Opening Endoscopic (ICD-10-PCS; CPT 45378; principal; 2019-05-05 07:45)
DX: Z12.11 Encounter for screening for malignant neoplasm of colon (principal); Z86.010 Personal history of colon polyps; Z80.0 Family history of malignant neoplasm of digestive organs; K57.30 Diverticulosis of large intestine without perforation or abscess without bleeding
CPT/HCPCS: G0105; 99152; J2250; J3010

== ENCOUNTER → 2019-05-21 13:30 | Outpatient (CLI) | payer MEDICARE, OTHER, SELFPAY ==
--- NOTE | 2019-05-21 | DI.MG.S_ITS ---
BILATERAL DIGITAL DIAGNOSTIC MAMMOGRAM 3D/2D: 05/21/2019 CLINICAL: New diffuse tenderness of the bilateral breasts. Comparison is made to exams dated: 05/22/2018 mammogram, 05/21/2017 mammogram, and 04/03/2016 mammogram - [facility]. There are scattered fibroglandular elements in both breasts. No significant masses, calcifications, or other findings are seen in either breast. IMPRESSION: NEGATIVE There is no abnormality seen in either breast to correspond with the area of clinical concern and diffuse pain, however, clinical followup is recommended for persistent or worsening symptoms or development of any clinically suspicious findings. There is no mammographic evidence of malignancy. A 1 year screening mammogram is recommended. This exam was interpreted at Station ID: [id number]. NOTE: For mammograms, a report in lay terms will be sent to the patient. Approximately 15% of breast malignancies will not be visualized mammographically. In the management of a palpable breast mass, a negative mammogram must not discourage biopsy of a clinically suspicious lesion. Electronically Signed By: Papito aviles/:05/21/2019 14:22:49 letter sent: Normal Exam ACR BI-RADS Category 1: Negative [id number]
== END ==
PROVIDERS: PCP Internal Medicine; Referring Provider Internal Medicine; Visit Provider Internal Medicine
DX: N64.4 Mastodynia (principal)
CPT/HCPCS: 77066; G0279

== ENCOUNTER → 2019-09-03 13:09 | Outpatient (CLI) | payer MEDICARE, OTHER, SELFPAY ==
[2019-09-06 16:38] LABS: ANA Screen, IFA Negative (.)
== END ==
PROVIDERS: PCP Internal Medicine; Referring Provider Internal Medicine; Visit Provider Internal Medicine
DX: M25.561 Pain in right knee (principal)
CPT/HCPCS: 36415; 86038

== ENCOUNTER → 2020-03-11 13:17 | Outpatient (CLI) | payer MEDICARE, OTHER, SELFPAY ==
--- NOTE | 2020-03-11 13:21 | DI.RAD.S_ITS ---
PROCEDURE: XR LUMBAR SPINE MIN 4V INDICATIONS: UPDATE IMAGING TECHNIQUE: 5 views of the lumbar spine were acquired. COMPARISON: [facility], CT, CT KIDNEY URETER BLADDER (KUB), 04/02/2018, 8:53. [facility], CR, L-SPINE 2-3 VIEWS, 12/04/2013, 9:57. FINDINGS: Bones: 5 nonrib-bearing vertebrae are present. There is mild leftward scoliosis of lumbar spine centered at L2-3 level and slight compensatory rightward scoliosis of lower lumbar spine centered at L5 level. Grade 1 anterolisthesis of L5 on S1 is seen and measures 7 millimeters in distance. Decreased intervertebral disc space and degenerative endplate changes are noted throughout lumbar spine No vertebral body compression fractures. No suspicious bony lesions. Soft tissues: Overlying bowel gas pattern is normal. No suspicious soft tissue calcifications. Oblique images: No pars defects. Significant bilateral bony foraminal stenosis at L3-4 and L4-5 levels are seen. IMPRESSION: 1. Mild scoliosis of lumbar spine as above. Grade 1, 7 mm, anterolisthesis of L5 on S1. No gross pars defect is seen. 2. 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 No acute compression fracture. Suggestion of bilateral bony foraminal stenosis at L3-4 and L4-5 levels. Dictated by: Memo Shepard M.D. on 03/11/2020 at 13:46 Approved by: Memo Shepard M.D. on 03/11/2020 at 13:49
== END ==
PROVIDERS: PCP Internal Medicine; Referring Provider Physical Medicine & Rehabilitation; Visit Provider Physical Medicine & Rehabilitation
DX: M48.07 Spinal stenosis, lumbosacral region (principal); M51.36 Other intervertebral disc degeneration, lumbar region; M47.817 Spondylosis without myelopathy or radiculopathy, lumbosacral region; M47.816 Spondylosis without myelopathy or radiculopathy, lumbar region; M43.17 Spondylolisthesis, lumbosacral region; M41.86 Other forms of scoliosis, lumbar region
CPT/HCPCS: 72110

== ENCOUNTER → 2020-04-12 14:24 | Outpatient (CLI) | payer MEDICARE, OTHER, SELFPAY ==
[2020-04-12 15:25] LABS: COVID19 -Nasal RAPID Negative (Negative)
== END ==
PROVIDERS: PCP Internal Medicine; Visit Provider Physical Medicine & Rehabilitation
DX: Z20.822 Contact with and (suspected) exposure to COVID-19 (principal)
CPT/HCPCS: 87635; 99215; C9803

== ENCOUNTER 2020-04-13 10:11 | Outpatient (CLI) | payer MEDICARE, OTHER, SELFPAY ==
[2020-04-13] VITALS (8 sets, daily range): BP systolic 131–158; BP diastolic 63–90; PULSE 80–88; RESP 12–24; TEMP 36.8; O2SAT 95–100
--- NOTE | 2020-04-13 10:15 | DI.RAD.S_ITS ---
PROCEDURE: PAIN SI JOINT INJECTION KENZIE COMPARISON: None. INDICATIONS: SACROCOCCYGEAL DISORDER FINDINGS: Fluoroscopic spot filming was performed to verify placement of spinal needles at the left and right SI joint level(s), as labeled on the films. Appropriate location(s) of the needle tip(s) was confirmed by injection of iodinated contrast. Dictated by: Marco A Rose M.D. on 04/13/2020 at 11:31 Approved by: Marco A Rose M.D. on 04/13/2020 at 11:32
[2020-04-13] MEDS: BUPIVACAINE 0.5% (PF) VIAL 2 ML INJ (10:55)
[2020-04-13] MEDS: IOPAMIDOL 15 ML VIAL 3 ML INJ (10:56)
[2020-04-13] MEDS: BETAMETHASONE 30 MG/5 ML MDV 12 MG INJ (10:56)
[2020-04-13] MEDS: MIDAZOLAM 5 MG/5 ML VIAL IV (10:57)
--- NOTE | 2020-04-13 11:11 | P.PCN_ITS ---
Date/Time/Diagnoses Date of procedure: 04/13/20 Time of procedure: 11:11 Pre-procedure diagnosis: Sacroiliac joint pain/DJD Post-procedure diagnosis: same Procedure Notes Procedure: Fluoroscopic guided contrast controlled bilateral sacroiliac joint injection Indications: Aubrie is referred by Dr. Branham for treatment of right sacroiliac joint DJD Physician: Shawn Jay Total Fluoroscopy time (seconds): 16 Total sedation minutes: 13 Complications: none Procedure in detail & Post-procedure care: Description of procedure Fluoroscopic guided, contrast controlled bilateral sacroiliac joint injection Following review of allergies and review of potential side effects and complications, including, but not necessarily limited to, infection, allergic reaction, local tissue breakdown, temporary as well as permanent nerve injury, paralysis, stroke and possible , the patient indicated that they understood and agreed to proceed. An informed consent was signed by the patient, witnessed by a nurse, and placed in the patient's chart. Additionally, other treatment options including modalities, medications, and physical therapy were reviewed with the patient. After review of previous anaesthesic history and IV conscious sedation the patient was deemed safe to proceed with today?s procedure with IV conscious sedation as ASA class II designation. Safety time-out was performed to confirm patient ID, procedure to be performed and site of procedure. IV sedation was accomplished with a combination of 3mg Versed were administered by the RN after DO order, titrated to patient comfort during the course of the procedure while the patient remained responsive to all verbal commands In the prone position following sterile prep and drape of the pelvic region, the hyper lucency on in the inferior aspect of the sacroiliac joint was identified fluoroscopically the skin was anesthetized be a 25 gauge 1.5 inch needle with approximately 2cc of 1% lidocaine solution. At this point, a 22 gauge 3 in spi nal needle was atraumatically introduced and advanced under fluoroscopic guidance into the inferior aspect of the right sacroiliac joint. Following negative aspiration, approximately 0.3cc of Isovue-300 was injected confirming intra-articular placement without vascular uptake. Radiographic data, including multiple fluoroscopic views of the pelvis, reveals a spinal needle in the sacroiliac joint hyper lucent zone. Subsequent view show flow contrast tear superiorly and inferiorly within the joint capsule without vascular intrathecal uptake. At this point a total of 1cc of 0.5% Marcaine was combined with 1cc of 6mg of betamethasone was injected without incident. Attention was then refocused the left sacroiliac joint where the procedure was replicated. The procedure tolerated the procedure well without signs or symptoms of complications prior to transfer to the recovery area continued monitoring without incident. The patient was then transferred to the recovery area with a bur observed for an appropriate time after the injection. The patient reverted a vas score of 7 prior to the procedure and post-procedure vas of 1. Postop instructions The patient was provided with a pain like to continue to record the patient's response to the target specific procedure prior to the patient's follow-up visit with the referring physician. Additionally, specific post injection care instructions and a contact number to our office were provided if concerns arise regarding the possible complications associated with procedure are suspected.
== END 2020-04-13 11:28 | disposition home or self-care (01) ==
LOC: RAD 10:14
PROVIDERS: PCP Internal Medicine; Referring Provider Internal Medicine; Visit Provider Physical Medicine & Rehabilitation
DX: M53.3 Sacrococcygeal disorders, not elsewhere classified (principal); M46.1 Sacroiliitis, not elsewhere classified
CPT/HCPCS: 27096; 99152; J0702; J2250; J3010

== ENCOUNTER → 2020-05-10 14:05 | Outpatient (CLI) | payer MEDICARE, OTHER, SELFPAY ==
[2020-05-10 15:23] LABS: Add Manual Diff / Slide Review NO; Basophils Absolute Auto 0 /uL (0-100); Basophils Percent Auto 0.9 % (0-2); Eosinophils Absolute Auto 100 /uL (0-450); Eosinophils Percent Auto 1.3 % (2-4); Hematocrit 36.3 % (36-46); Hemoglobin 12.2 g/dL (12.0-16.0); Lymphocytes Absolute Auto 1900 /uL (1100-4500); Lymphocytes Percent Auto 34.5 % (25-40); Mean Corpuscular HGB Conc 33.5 % (30-36); Mean Corpuscular Volume 89.5 fL (80-100); Monocytes Absolute Auto 400 /uL (0-900); Monocytes Percent Auto 6.3 % (3-14); Neutrophils Absolute Auto 3200 /uL (1500-7000); Platelet Count 230 X10^3/uL (150-400); Red Blood Cell Count 4.06 X10^6/uL (4.0-5.2); Red Cell Distribution Width 13.9 % (11.6-14.8); White Blood Cell Count 5.6 X10^3/uL (4.5-11.0)
[2020-05-10 15:55] LABS: Erythrocyte Sedimentation Rate 7 MM/HR (0-20)
[2020-05-10 15:56] LABS: Alanine Aminotransferase 15 IU/L (<35); Albumin 4.3 g/dL (3.5-5.0); Albumin Globulin Ratio 1.6 (1.0-2.8); Alkaline Phosphatase 80 U/L (38-126); Aspartate Aminotransferase 23 IU/L (14-36); BUN Creatinine Ratio 22.1 (6-22); Bilirubin Total 0.3 mg/dL (0.2-1.3); Blood Urea Nitrogen 17 mg/dL (7-17); Calcium 9.9 mg/dL (8.4-10.2); Carbon Dioxide 29 mmol/L (22-32); Chloride 101 mmol/L (98-107); Estimated Glomerular Filt Rate > 60.0 mL/min (>60); Globulin 2.7 g/dL (1.7-4.1); Glucose 133 mg/dL (80-110); HEMOLYSIS < 15 (0-50); Potassium 4.1 mmol/L (3.4-5.1); Sodium 134 mmol/L (137-145)
== END ==
PROVIDERS: PCP Internal Medicine; Referring Provider Internal Medicine; Visit Provider Internal Medicine
DX: M79.7 Fibromyalgia (principal); I10 Essential (primary) hypertension
CPT/HCPCS: 36415; 80053; 85025; 85651

== ENCOUNTER → 2020-05-21 09:49 | Outpatient (CLI) | payer MEDICARE, OTHER, SELFPAY ==
--- NOTE | 2020-05-21 | DI.MG.S_ITS ---
BILATERAL DIGITAL SCREENING MAMMOGRAM 3D/2D WITH CAD: 05/21/2020 CLINICAL: Routine screening. Family history of breast cancer. Comparison is made to exams dated: 05/21/2019 mammogram, 05/22/2018 mammogram, and 05/21/2017 mammogram - [facility]. There are scattered fibroglandular elements in both breasts. Current study was also evaluated with a Computer Aided Detection (CAD) system. No significant masses, calcifications, or other findings are seen in either breast. There has been no significant interval change. IMPRESSION: NEGATIVE There is no mammographic evidence of malignancy. A 1 year screening mammogram is recommended. This exam was interpreted at Station ID: [id number]. NOTE: For mammograms, a report in lay terms will be sent to the patient. Approximately 15% of breast malignancies will not be visualized mammographically. In the management of a palpable breast mass, a negative mammogram must not discourage biopsy of a clinically suspicious lesion. Electronically Signed By: Jatin wray/familia:05/21/2020 11:02:26 letter sent: Normal Exam ACR BI-RADS Category 1: Negative [id number]
== END ==
PROVIDERS: PCP Internal Medicine; Referring Provider Internal Medicine; Visit Provider Internal Medicine
DX: Z12.31 Encounter for screening mammogram for malignant neoplasm of breast (principal); Z80.3 Family history of malignant neoplasm of breast; M81.0 Age-related osteoporosis without current pathological fracture; Z78.0 Asymptomatic menopausal state; M06.9 Rheumatoid arthritis, unspecified; Z90.722 Acquired absence of ovaries, bilateral
CPT/HCPCS: 77063; 77067; 77080; 77081

== ENCOUNTER → 2020-06-21 19:14 | Outpatient (ROUT) | payer MEDICARE, OTHER, SELFPAY ==
[2020-06-21 19:31] LABS: COVID19 -Nasal RAPID Negative (Negative)
== END ==
PROVIDERS: PCP Internal Medicine; Visit Provider Physical Medicine & Rehabilitation
DX: Z01.812 Encounter for preprocedural laboratory examination (principal); Z20.822 Contact with and (suspected) exposure to COVID-19
CPT/HCPCS: 87635; C9803

== ENCOUNTER 2020-06-24 12:26 | Outpatient (CLI) | payer MEDICARE, OTHER, SELFPAY ==
[2020-06-24] VITALS (8 sets, daily range): BP systolic 123–144; BP diastolic 66–84; PULSE 73–82; RESP 12–19; TEMP 36.6; O2SAT 92–99
--- NOTE | 2020-06-24 12:28 | DI.RAD.S_ITS ---
PROCEDURE: PAIN L/S FACET INJ/BLK 1ST KENZIE COMPARISON: [facility], XA, PAIN SI JOINT INJECTION KENZIE, 04/13/2020, 10:53. INDICATIONS: SPONDYLOSIS FINDINGS: Fluoroscopic spot filming was performed to verify placement of spinal needles at the L1-L2 and L2-L3 levels on both sides, as labeled on the films. Appropriate location of the needle tips was confirmed by injection of iodinated contrast. IMPRESSION: Intraprocedural examination within normal limits. Dictated by: Morris Rodriguez M.D. on 06/24/2020 at 13:16 Approved by: Morris Rodriguez M.D. on 06/24/2020 at 13:17
[2020-06-24] MEDS: MIDAZOLAM 5 MG/5 ML VIAL IV (13:09)
[2020-06-24] MEDS: IOPAMIDOL 15 ML VIAL 3 ML INJ (13:14)
[2020-06-24] MEDS: BUPIVACAINE 0.5% (PF) VIAL 2 ML INJ (13:15)
[2020-06-24] MEDS: BETAMETHASONE 30 MG/5 ML MDV 12 MG INJ (13:15)
[2020-06-24] MEDS: LIDOCAINE 1% 20 ML 10 ML INJ (13:16)
--- NOTE | 2020-06-24 13:27 | P.PCN_ITS ---
Date/Time/Diagnoses Date of procedure: 06/24/20 Time of procedure: 13:27 Pre-procedure diagnosis: 1. FACET ARTHROPATHY 2. AXIAL LBP 3. MULTILEVEL DDD Post-procedure diagnosis: same Procedure Notes Procedure: 1. FLUOROSCOPICALLY GUIDED CONTRAST CONTROLLED FACET JOINT INJECTIONS BILATERAL L1/2, L2/3 Indications: Jenni is referred by Dr. Branham for treatment of Axial LBP Physician: Shawn Jay Total Fluoroscopy time (seconds): 10 Total sedation minutes: 16 Complications: none Procedure in detail & Post-procedure care: FINDINGS Multilevel Facet Arthropathy with Clinically significant axial LBP DESCRIPTION OF PROCEDURE Fluoroscopically guided, contrast-controlled bilateral L1/2, L2/3 facet joint injections. Following review of allergy and review of potential side effects and complications, including, but not necessarily limited to, infection, allergic reaction, local tissue breakdown, stroke, temporary or permanent nerve injury, paralysis, and possible , the patient indicated that the patient understood and agreed to proceed. An informed consent document was signed by the patient, witnessed by a nurse, and placed in the patient's chart. Additionally, other treatment options including medications, modalities, and physical therapy were reviewed with the patient. After review of previous anaesthesic history and IV conscious sedation the patient was deemed safe to proceed with today's procedure with IV conscious sedation as ASA class II designation. Safety time-out was performed to confirm patient ID, procedure to be performed and site of procedure. IV sedation was accomplished with a combination of 3mg of Versed administered by the RN after DO order, titrated to patient comfort during the course of the procedure while the patient remained responsive to all verbal commands In the prone position, following sterile prep and drape of the lumbar region, the posterior aspect of the L1/2, L2/3 facet joints were identified fluoroscopically. The skin was anesthetized via a 25-gauge 1.5-inch needle with 1% lidocaine solution into the corresponding facet joints. At this point, a 22- gauge 3.5-inch spinal needle was atraumatically introduced and advanced under fluoroscopic guidance into the corresponding facet joints. Following negative aspiration, injections of approximately 0.2cc of Isovue 200 confirmed interarticular placement without vascular uptake. The identical procedure was then performed at the L1/2, L2/3 facet joints on the left. Radiological data, including multiple fluoroscopic views of the lumbosacral spine, reveal a spinal needle at the L1/2, L2/3 facet joints bilaterally. Subsequent views show flow of contrast material both superiorly and inferiorly within the joint space without vascular or intrathecal uptake. At this point, a total of 0.5cc including a mixture of 0.25cc Marcaine and 0.25cc betamethasone was injected without complication into each of the corresponding facet joints. The patient tolerated the procedure well without signs or symptoms of complications prior to transfer to the recovery area continued monitoring without incident. The patient was then transferred to the recovery area where they were observed for an appropriate period of time after the injection. The patient reported a VAS score of 7 prior to the procedure and a post-procedure VAS of 0. POST OP INSTRUCTIONS The patient was provided a Pain Log to continue to record their response to the target-specific procedure prior to follow-up visit with their referring physician. Additionally, specific post-injection care instructions and a contact number to our office were provided if concerns arise regarding possible complications associated with the procedure are suspected.
== END 2020-06-24 13:39 | disposition home or self-care (01) ==
LOC: RAD 12:27
PROVIDERS: PCP Internal Medicine; Referring Provider Physical Medicine & Rehabilitation; Visit Provider Physical Medicine & Rehabilitation
DX: M47.816 Spondylosis without myelopathy or radiculopathy, lumbar region (principal); M54.5 Low back pain; M51.36 Other intervertebral disc degeneration, lumbar region
CPT/HCPCS: 64493; 64494; 99152; J0702; J2250; J3010

== ENCOUNTER → 2020-09-01 12:07 | Outpatient (CLI) | payer MEDICARE, OTHER, SELFPAY ==
--- NOTE | 2020-09-01 12:09 | DI.RAD.S_ITS ---
PROCEDURE: XR KUB INDICATIONS: Kidney stones TECHNIQUE: One view of the abdomen acquired. COMPARISON: [facility], CR, XR KUB, 10/08/2018, 9:58. FINDINGS: Surgical changes and devices: None. Bowel: Bowel gas pattern is normal. Significant stool is present without obstruction. Soft tissues: No suspicious abdominal calcifications. Visualized solid organ contours appear normal in size. Bones: No suspicious bony lesions. Mild leftward curvature of the lumbar spine with apex at approximately L1-L2. IMPRESSION: Constipation without obstruction. Dictated by: Sally Ch M.D. on 09/01/2020 at 13:00 Approved by: Sally Ch M.D. on 09/01/2020 at 13:01
== END ==
PROVIDERS: PCP Internal Medicine; Referring Provider Specialist; Visit Provider Specialist
DX: N20.0 Calculus of kidney (principal); K59.00 Constipation, unspecified
CPT/HCPCS: 74018

== ENCOUNTER → 2021-03-25 12:35 | Outpatient (CLI) | payer MEDICARE, OTHER, SELFPAY ==
--- NOTE | 2021-03-25 12:39 | DI.MRI.S_ITS ---
PROCEDURE: MR CERVICAL SPINE WO CON INDICATIONS: Bilateral upper extremity paresthesias TECHNIQUE: Noncontrast sagittal T1 spin echo and T2 fast spin echo, sagittal STIR, foraminal oblique sagittal T2 fast spin echo, and axial gradient echo or T2 fast spin echo through the cervical spine. COMPARISON: [facility], MR, MR CERVICAL SPINE WO CON, 08/30/2017, 11:35. [facility], MR, MR LUMBAR SPINE WO CON, 03/25/2021, 13:11. FINDINGS: Image quality: This examination is limited by involuntary motion artifact. Alignment and Curvature: There is minimal anterolisthesis seen at C4-C5, C5-C6, C6-C7, and C7-T1. There is also minimal to mild anterolisthesis seen at the T1-T2 level. Bone Marrow: Marrow demonstrates normal overall signal. Partial erosion can be seen in the anterior dens, as on series 4, image 9. This is new compared to 2018. Spinal Cord: Visualized spinal cord has normal size and signal. No cerebellar tonsillar herniation. Paraspinous Soft Tissues: No paravertebral masses. Prevertebral soft tissues are normal in thickness. C2-C3: The disc height is well-preserved. Loss of disc signal is seen at this level. Minimal to mild disc osteophyte complex is seen. At least moderate facet hypertrophy is seen at this level. There is mild left-sided and minimal right-sided neural foraminal narrowing. The central canal is widely patent. When comparison is made with the prior images, these findings are similar. C3-C4: Mild loss of disc height is seen. Loss of disc signal is seen. Moderate generalized disc osteophyte complex is seen. Moderate to prominent facet hypertrophy is seen at this level. There is at least moderate bilateral neural foraminal narrowing seen, left worse than right. Mild central canal narrowing is seen. When comparison is made with the prior images, these findings are similar. C4-C5: Moderate loss of disc height is seen. Loss of disc signal is seen. Moderate generalized disc osteophyte complex is seen. Moderate to prominent facet hypertrophy is seen at this level. There is moderate to severe bilateral neural foraminal narrowing seen, right worse than left. Mild central canal narrowing is seen. These imaging findings have progressed compared to the prior study. C5-C6: Mild loss of disc height is seen. Loss of disc signal is seen. Moderate generalized disc osteophyte complex is seen. Moderate to prominent facet hypertrophy is seen at this level. There is moderate right-sided and moderate to severe left-sided neural foraminal narrowing seen. Mild central canal narrowing is seen. These imaging findings have progressed compared to the prior study. C6-C7: Moderate loss of disc height is seen. Loss of disc signal is seen. Moderate disc osteophyte complex is seen, with a central disc osteophyte protrusion. At least moderate facet hypertrophy is seen. There is moderate to severe bilateral neural foraminal narrowing seen, left worse than right. At least moderate central canal narrowing is seen at this level. These degenerative changes are worse than in 2018. C7-T1: Mild loss of disc height is seen. Loss of disc signal is seen. Mild to moderate disc osteophyte complex is seen. Mild bilateral neural foraminal narrowing is seen. The central canal is widely patent. When comparison is made with the prior images, these findings are similar. IMPRESSION: Multiple levels of cervical spine degenerative change are seen, which have progressed within the inferior cervical spine compared to 2018. There is partial erosion seen of the anterior dens, which is a new finding compared to 2018. Please correlate with underlying patient history. Dictated by: Morris Rodriguez M.D. on 03/25/2021 at 12:58 Approved by: Morris Rodriguez M.D. on 03/25/2021 at 13:05
--- NOTE | 2021-03-25 12:39 | DI.MRI.S_ITS ---
PROCEDURE: MR LUMBAR SPINE WO CON INDICATIONS: Low back right lower extremity paresthesias TECHNIQUE: Noncontrast sagittal T1 spin echo and T2 fast echo, sagittal STIR, axial T1 and T2 fast spin echo through the lumbar spine. In cases with scoliosis, additional coronal T2 fast spin echo may be performed. COMPARISON: [facility], MR, L-SPINE WITHOUT CONTRAST, 08/26/2015, 9:00. [facility], CR, XR LUMBAR SPINE MIN 4V, 03/11/2020, 13:21. [facility], MR, MR CERVICAL SPINE WO CON, 03/25/2021, 12:51. [facility], MR, L-SPINE WITHOUT CONTRAST, 12/11/2013, 10:01. FINDINGS: Image quality: Excellent. Alignment and Curvature: Mild to moderate levoconvex scoliotic curvature is noted. Grade 1 L5-S1 anterolisthesis is seen. Bone Marrow: Marrow is of normal overall signal. No acute vertebral body compression fractures. Spinal Cord: Conus medullaris terminates at the L1 level. Visualized cord demonstrates normal signal and size. Paraspinous Soft Tissues: No paravertebral masses. Age-appropriate lower thoracic spine degenerative changes are seen. T12-L1: The disc height is well-preserved. Loss of disc signal is seen at this level. Moderate disc bulge is seen, which is eccentric to the right. Bridging endplate osteophytes are seen on the right side, as on series 2, image 9 and on series 6, image 4. Mild facet joint hypertrophy is seen. No significant neural foraminal or central canal narrowing can be seen. L1-L2: Moderate loss of disc height is seen. Loss of disc signal is seen. At least moderate disc bulge is seen, which is eccentric to the right. There is a right foraminal disc protrusion seen. At least moderate right-sided and moderate left-sided facet hypertrophy seen. There is moderate to severe right-sided neural foraminal narrowing, with associated compression upon the exiting right L1 nerve root. Mild left-sided neural foraminal narrowing is seen. Mild central canal narrowing is seen. These imaging findings have progressed compared to the prior study. L2-L3: Moderate loss of disc height is seen. Loss of disc signal is seen. At least moderate disc bulge is seen, which is eccentric to the right. At least moderate facet hypertrophy is seen at this level. Moderate bilateral neural foraminal narrowing is seen. Moderate central canal narrowing is seen. These degenerative changes are slightly more prominent than in 2016. L3-L4: Moderate to severe loss of disc height and disc signal can be seen. At least moderate disc bulge is seen at this level, which is slightly eccentric to the right. Moderate facet joint hypertrophy is seen. There is moderate to severe left-sided neural foraminal narrowing, with associated mild compression upon the exiting left L3 nerve root. Moderate right-sided neural foraminal narrowing is seen. Moderate central canal narrowing is seen. When comparison is made with the prior images, these findings are similar. L4-L5: At least moderate loss of disc height and disc signal can be seen. At least moderate disc bulge is seen, which is eccentric to the right. Moderate to prominent facet hypertrophy is seen at this level. Moderate bilateral neural foraminal narrowing can be seen, left worse than right. Moderate central canal narrowing is seen. When comparison is made with the prior images, these findings are similar. L5-S1: Moderate loss of disc height is seen. Loss of disc signal is seen. At least moderate disc bulge is seen at this level. Prominent facet hypertrophy is seen at this level. There is moderate to severe bilateral neural foraminal narrowing seen, left worse than right. There is a degree of compression seen upon the exiting nerve roots. Mild central canal narrowing is seen. These imaging findings have progressed compared to the prior study. IMPRESSION: Multiple levels of lumbar spine degenerative change are seen, which are overall worst at L5-S1. Compared to 2016, a few lumbar levels demonstrate interval progression of degenerative change. Dictated by: Morris Rodriguez M.D. on 03/25/2021 at 13:05 Approved by: Morris Rodriguez M.D. on 03/25/2021 at 13:11
== END ==
PROVIDERS: PCP Internal Medicine; Referring Provider Physical Medicine & Rehabilitation; Visit Provider Physical Medicine & Rehabilitation
DX: M48.02 Spinal stenosis, cervical region (principal); M48.07 Spinal stenosis, lumbosacral region; M54.16 Radiculopathy, lumbar region
CPT/HCPCS: 72141; 72148

== ENCOUNTER → 2021-04-05 14:20 | Outpatient (CLI) | payer MEDICARE, OTHER, SELFPAY ==
[2021-04-05 14:58] LABS: COVID19 -Nasal RAPID Negative (Negative)
== END ==
PROVIDERS: PCP Internal Medicine; Referring Provider Physical Medicine & Rehabilitation; Visit Provider Physical Medicine & Rehabilitation
DX: Z20.822 Contact with and (suspected) exposure to COVID-19 (principal)
CPT/HCPCS: 87635; C9803

== ENCOUNTER 2021-04-07 09:32 | Outpatient (CLI) | payer MEDICARE, OTHER, SELFPAY ==
[2021-04-07] VITALS (8 sets, daily range): BP systolic 122–150; BP diastolic 69–86; PULSE 80–88; RESP 14–22; TEMP 36.9; O2SAT 94–99
--- NOTE | 2021-04-07 09:34 | DI.RAD.S_ITS ---
PROCEDURE: PAIN SI JOINT INJECTION INDICATIONS: SACROILIAC DISORDER COMPARISON: [facility], XA, PAIN L/S FACET INJ/BLK 1ST KENZIE, 06/24/2020, 13:16. [facility], CR, XR KUB, 09/01/2020, 12:18. FINDINGS: On these intraprocedural images, there is a spinal needle seen overlying the inferior aspect of the right sacroiliac joint. Appropriate position of the tip of the needle was confirmed by injection of a small amount of iodinated contrast. IMPRESSION: Successful sacroiliac joint injection. Dictated by: Morris Rodriguez M.D. on 04/07/2021 at 10:49 Approved by: Morris Rodriguez M.D. on 04/07/2021 at 10:49
[2021-04-07] MEDS: IOPAMIDOL 15 ML VIAL 3 ML INJ (10:55)
[2021-04-07] MEDS: BUPIVACAINE 0.5% (PF) VIAL 2 ML INJ (10:56)
[2021-04-07] MEDS: BETAMETHASONE 30 MG/5 ML MDV 12 MG INJ (10:56)
[2021-04-07] MEDS: MIDAZOLAM 5 MG/5 ML VIAL IV (10:57)
--- NOTE | 2021-04-07 11:05 | P.PCN_ITS ---
Date/Time/Diagnoses Date of procedure: 04/07/21 Time of procedure: 11:06 Pre-procedure diagnosis: Sacroiliac joint pain/DJD This procedure is found to meet the Governor's proclamation 20-24.2 regarding non urgent procedures. This patient meets multiple criteria for the procedure including continuing or worsening of significant or severe pain, combined with further deterioration of the patient's condition or overall health as well as delay in treatment would be expected to result in less positive ultimate medical outcome. Therefore the decision to perform the procedure in an outpatient hospital setting is found to be in accordance with guidelines of the proclamation. Post-procedure diagnosis: same Procedure Notes Procedure: Fluoroscopically guided contrast controlled right sacroiliac joint injection Indications: Aubrie is referred by Dr. Branham for treatment of right sacroiliac joint DJD Physician: Shawn Jay Total Fluoroscopy time (seconds): 8 Total sedation minutes: 8 Complications: none Procedure in detail & Post-procedure care: DESCRIPTION OF PROCEDURE Fluoroscopically guided, contrast controlled right sacroiliac joint injection Following review of allergies and review of potential side effects and complications, including, but not necessarily limited to, infection, allergic reaction, local tissue breakdown, temporary as well as permanent nerve injury, paralysis, stroke and possible , the patient indicated that they understood and agreed to proceed. An informed consent was signed by the patient, witnessed by a nurse, and placed in the patient's chart. Additionally, other treatment options including modalities, medications, and physical therapy were reviewed with the patient. After review of previous anaesthesic history and IV conscious sedation the patient was deemed safe to proceed with today?s procedure with IV conscious sedation as ASA class II designation. Safety time-out was performed to confirm patient ID, procedure to be performed and site of procedure. IV sedation was accomplished with a combination of 3mg of Versed and 50mcg of Fentanyl was administered by the RN after DO order, titrated to patient comfort during the course of the procedure while the patient remained responsive to all verbal commands In the prone position following sterile prep and drape of the pelvic region, the hyper lucency on in the inferior aspect of the sacroiliac joint was identified fluoroscopically the skin was anesthetized be a 25 gauge 1 eventual with approximately 2 cc of 1% lidocaine solution. At this point, a 22 gauge 3 in spinal needle was atraumatically introduced and advanced under fluoroscopic guidance into the inferior aspect of the right sacroiliac joint. Following negative aspiration, approximately 0.3cc of Isovue-300 was injected confirming intra-articular placement without vascular uptake. Radiographic data, including multiple fluoroscopic views of the pelvis, reveals a spinal needle in the sacroiliac joint hyper lucent zone. Subsequent view show flow contrast tear superiorly and inferiorly within the joint capsule without vascular intrathecal uptake. At this point a total of 1cc of 0.5% Marcaine was combined with 1cc of 6mg of betamethasone was injected without incident. The procedure tolerated the procedure well without signs or symptoms of complications prior to transfer to the recovery area continued monitoring withou t incident. The patient was then transferred to the recovery area with a bur observed for an appropriate time after the injection. The patient reverted a vas score of 7 prior to the procedure and post-procedure vas of 1. POSTOP INSTRUCTIONS The patient was provided with a pain like to continue to record the patient's response to the target specific procedure prior to the patient's follow-up visit with the referring physician. Additionally, specific post injection care instructions and a contact number to our office were provided if concerns arise regarding the possible complications associated with procedure are suspected.
== END 2021-04-07 11:30 | disposition home or self-care (01) ==
PROVIDERS: PCP Internal Medicine; Referring Provider Physical Medicine & Rehabilitation; Visit Provider Physical Medicine & Rehabilitation
DX: M53.3 Sacrococcygeal disorders, not elsewhere classified (principal); M46.1 Sacroiliitis, not elsewhere classified
CPT/HCPCS: 27096; J0702; J2250; J3010

== ENCOUNTER → 2021-05-23 08:03 | Outpatient (CLI) | payer MEDICARE, OTHER, SELFPAY ==
--- NOTE | 2021-05-23 | DI.MG.S_ITS ---
BILATERAL DIGITAL SCREENING MAMMOGRAM 3D/2D WITH CAD: 05/23/2021 CLINICAL: Routine screening. Family history of breast cancer. Comparison is made to exams dated: 05/21/2020 mammogram, 05/21/2019 mammogram, and 05/22/2018 mammogram - [facility]. There are scattered fibroglandular elements in both breasts. Current study was also evaluated with a Computer Aided Detection (CAD) system. No significant masses, calcifications, or other findings are seen in either breast. There has been no significant interval change. IMPRESSION: NEGATIVE There is no mammographic evidence of malignancy. A 1 year screening mammogram is recommended. This exam was interpreted at Station ID: [id number]. NOTE: For mammograms, a report in lay terms will be sent to the patient. Approximately 15% of breast malignancies will not be visualized mammographically. In the management of a palpable breast mass, a negative mammogram must not discourage biopsy of a clinically suspicious lesion. Electronically Signed By: Jatin wray/familia:05/23/2021 09:26:52 letter sent: Normal Exam ACR BI-RADS Category 1: Negative [id number]
== END ==
PROVIDERS: PCP Internal Medicine; Referring Provider Internal Medicine; Visit Provider Internal Medicine
DX: Z12.31 Encounter for screening mammogram for malignant neoplasm of breast (principal); Z80.3 Family history of malignant neoplasm of breast
CPT/HCPCS: 77063; 77067

== ENCOUNTER → 2021-06-17 08:53 | Outpatient (CLI) | payer MEDICARE, OTHER, SELFPAY ==
--- NOTE | 2021-06-17 08:57 | DI.RAD.S_ITS ---
PROCEDURE: XR LUMBAR SPINE MIN 4V INDICATIONS: BACK PAIN TECHNIQUE: 5 views of the lumbar spine were acquired, including bilateral oblique views. COMPARISON: [facility], CT, CT KIDNEY URETER BLADDER (KUB), 04/02/2018, 8:53. [facility], CR, XR LUMBAR SPINE MIN 4V, 03/11/2020, 13:21. FINDINGS: Bones: 5 nonrib-bearing vertebrae are present. Levocurvature of the lumbar spine. No vertebral body compression fractures. At least moderate degenerative changes of the lumbar spine with endplate osteophytosis, disc space height loss, and facet arthrosis. Minimal retrolisthesis at L1-2, measuring less than 4 mm. Grade 1 anterolisthesis at L5-S1, measuring approximately 7 mm. Soft tissues: Overlying bowel gas pattern is normal. Persistent bilateral nephrolithiasis. Oblique images: No pars defects. IMPRESSION: Lumbar spine degeneration as detailed above. Dictated by: Alex Amaya M.D. on 06/17/2021 at 9:59 Approved by: Alex Amaya M.D. on 06/17/2021 at 10:02
== END ==
PROVIDERS: PCP Internal Medicine; Referring Provider Physical Medicine & Rehabilitation; Visit Provider Physical Medicine & Rehabilitation
DX: M47.817 Spondylosis without myelopathy or radiculopathy, lumbosacral region (principal); M48.07 Spinal stenosis, lumbosacral region; M43.17 Spondylolisthesis, lumbosacral region
CPT/HCPCS: 72110

== ENCOUNTER → 2021-07-07 10:04 | Outpatient (CLI) | payer MEDICARE, OTHER, SELFPAY | PROVIDERS: Family Provider Internal Medicine; PCP Internal Medicine; Referring Provider Physical Medicine & Rehabilitation; Visit Provider Physical Medicine & Rehabilitation | DX: G56.03 Carpal tunnel syndrome, bilateral upper limbs (principal) | CPT/HCPCS: 95885; 95886; 95912 ==

== ENCOUNTER → 2021-07-11 10:41 | Outpatient (CLI) | payer MEDICARE, OTHER, SELFPAY ==
[2021-07-11 12:09] LABS: COVID19 -Nasal RAPID Negative (Negative)
== END ==
PROVIDERS: Family Provider Internal Medicine; PCP Internal Medicine; Visit Provider Physical Medicine & Rehabilitation
DX: Z20.822 Contact with and (suspected) exposure to COVID-19 (principal)
CPT/HCPCS: 87635; C9803

== ENCOUNTER 2021-07-12 13:26 | Outpatient (CLI) | payer MEDICARE, OTHER, SELFPAY ==
[2021-07-12] VITALS (9 sets, daily range): BP systolic 134–163; BP diastolic 78–104; PULSE 86–94; RESP 10–22; TEMP 36.9; O2SAT 94–99
--- NOTE | 2021-07-12 14:15 | DI.RAD.S_ITS ---
PROCEDURE: PAIN SI JOINT INJECTION KENZIE COMPARISON: [facility], XA, PAIN SI JOINT INJECTION KENZIE, 04/13/2020, 10:53. INDICATIONS: SACROILIAC DISORDER FINDINGS/IMPRESSION: 6 fluoroscopic images demonstrate needle placement overlying the bilateral inferior SI joints with subsequent contrast injections to ensure appropriate placement. Dictated by: Alex Amaya M.D. on 07/12/2021 at 16:35 Approved by: Alex Amaya M.D. on 07/12/2021 at 16:36
[2021-07-12] MEDS: MIDAZOLAM 2 MG/2 ML VIAL IV (14:32)
[2021-07-12] MEDS: IOPAMIDOL 15 ML VIAL 3 ML INJ (14:36)
[2021-07-12] MEDS: BETAMETHASONE 30 MG/5 ML MDV 12 MG INJ (14:37)
[2021-07-12] MEDS: BUPIVACAINE 0.5% (PF) VIAL 2 ML INJ (14:37)
[2021-07-12] MEDS: LIDOCAINE 1% 20 ML 10 ML INJ (14:39)
--- NOTE | 2021-07-12 14:46 | P.PCN_ITS ---
Date/Time/Diagnoses Date of procedure: 07/12/21 Time of procedure: 14:46 Pre-procedure diagnosis: Sacroiliac joint pain/DJD Post-procedure diagnosis: same Procedure Notes Procedure: Fluoroscopic guided contrast controlled bilateral sacroiliac joint injection Indications: Aubrie is referred by Dr. March for treatment of right sacroiliac joint DJD Physician: Shawn Jay Total Fluoroscopy time (seconds): 12 Total sedation minutes: 10 Complications: none Procedure in detail & Post-procedure care: Description of procedure Fluoroscopic guided, contrast controlled bilateral sacroiliac joint injection Following review of allergies and review of potential side effects and complications, including, but not necessarily limited to, infection, allergic reaction, local tissue breakdown, temporary as well as permanent nerve injury, paralysis, stroke and possible , the patient indicated that they understood and agreed to proceed. An informed consent was signed by the patient, witnessed by a nurse, and placed in the patient's chart. Additionally, other treatment options including modalities, medications, and physical therapy were reviewed with the patient. After review of previous anaesthesic history and IV conscious sedation the patient was deemed safe to proceed with today?s procedure with IV conscious sedation as ASA class II designation. Safety time-out was performed to confirm patient ID, procedure to be performed and site of procedure. IV sedation was accomplished with a combination of 2mg Versed were administered by the RN after DO order, titrated to patient comfort during the course of the procedure while the patient remained responsive to all verbal commands In the prone position following sterile prep and drape of the pelvic region, the hyper lucency on in the inferior aspect of the sacroiliac joint was identified fluoroscopically the skin was anesthetized be a 25 gauge 1.5 inch needle with approximately 2cc of 1% lidocaine solution. At this point, a 22 gauge 3 in sp inal needle was atraumatically introduced and advanced under fluoroscopic guidance into the inferior aspect of the right sacroiliac joint. Following negative aspiration, approximately 0.3cc of Isovue-300 was injected confirming intra-articular placement without vascular uptake. Radiographic data, including multiple fluoroscopic views of the pelvis, reveals a spinal needle in the sacroiliac joint hyper lucent zone. Subsequent view show flow contrast tear superiorly and inferiorly within the joint capsule without vascular intrathecal uptake. At this point a total of 1cc of 0.5% Marcaine was combined with 1cc of 6mg of betamethasone was injected without incident. Attention was then refocused the left sacroiliac joint where the procedure was replicated. The procedure tolerated the procedure well without signs or symptoms of complications prior to transfer to the recovery area continued monitoring without incident. The patient was then transferred to the recovery area with a bur observed for an appropriate time after the injection. The patient reverted a vas score of 7 prior to the procedure and post-procedure vas of 1. Postop instructions The patient was provided with a pain like to continue to record the patient's response to the target specific procedure prior to the patient's follow-up visit with the referring physician. Additionally, specific post injection care instructions and a contact number to our office were provided if concerns arise regarding the possible complications associated with procedure are suspected.
== END 2021-07-12 15:08 | disposition home or self-care (01) ==
PROVIDERS: Family Provider Internal Medicine; PCP Internal Medicine; Referring Provider Physical Medicine & Rehabilitation; Visit Provider Physical Medicine & Rehabilitation
DX: M53.3 Sacrococcygeal disorders, not elsewhere classified (principal); M46.1 Sacroiliitis, not elsewhere classified
CPT/HCPCS: 27096; 99152; J0702; J2250

== ENCOUNTER → 2021-07-28 10:33 | Outpatient (CLI) | payer MEDICARE, OTHER, SELFPAY ==
[2021-07-28 11:11] LABS: Appearance Urine UA CLEAR; Bilirubin Urine UA NEGATIVE (NEGATIVE); Color Urine UA YELLOW; Glucose Urine UA NEGATIVE (Negative); Ketones Urine UA NEGATIVE (NEGATIVE); Leukocyte Esterase Urine UA NEGATIVE (NEGATIVE); Nitrite Urine UA NEGATIVE (Negative); Occult Blood Urine UA 3+ (Negative); Protein Urine UA NEGATIVE (Negative); Specific Gravity Urine UA <=1.005 (1.000-1.035); Urobilinogen Urine UA 0.2 E.U./dL (0.2)
[2021-07-28 11:46] LABS: Bacteria Urine Few (2-10); Culture Indicated Urine Specimen Cultured; RBC Urine 10-30/HPF (0-5/HPF); Squamous Epithelial Cell Urine 0-1 /HPF (0-5/HPF); WBC Urine 5-10/HPF (0-5/HPF)
== END ==
PROVIDERS: Family Provider Physical Medicine & Rehabilitation; PCP Internal Medicine; Referring Provider Specialist; Visit Provider Specialist
DX: R30.0 Dysuria (principal)
CPT/HCPCS: 81001; 87086

== ENCOUNTER 2021-08-17 13:04 | Outpatient (RCR) | payer MEDICARE, OTHER, SELFPAY ==
--- NOTE | 2021-08-17 15:30 | OT.OP.EVAL ---
Visit Care Team Role Provider Type Shawn March MD Family Provider Non-Staff Primary Care Provider Specialty: Internal Medicine Address: [address] [place] [address], [id number] Email: Shawn Jay DO Attending Provider Physician Referring Provider Specialty: Physiatry Pain Management Address: [address] [place], [address] Email: [email or web address] Occupational Therapy Initial Evaluation OT Outpatient Adult Evaluation Start: 08/25/21 09:40 Freq: Status: Active Protocol: Document 08/17/21 15:30 AMS (Rec: 08/25/21 10:00 AMS [id number]) General Information Visit Start Time 13:30 Visit Stop Time 14:15 Total Visit Minutes 45 Treatment Setting Outpatient Care Note Type Initial Evaluation Reason for Referral B CTS Identification Confirmed Yes: Patient Goals Treatment HEP/Education. 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 Medical history is significant for allergies to latex; arthritis; back pain; blood pressure (medication controlled); falls; fibromyalgia; [place] (hearing aides L/R ears); kidney stones ; neck pain; impaired vision ( wears glasses). Aubrie also verbally reported h/o bilateral thumb surgeries ~ 30 years ago and surgery of the 2nd MCPJ d/t calcium build-up. Aubrie completed QuickDASH UE Outcome Measure and received score = 72.73. She indicated 8-9 out of 10 on Pain Grid relative to volar/ dorsal hand 1st thru 5th digits and 3 out of 10 on Pain Grid relative to volar/dorsal 2nd, 3rd and 4th digits of the left hand. On Hand Pain Grid, pain was indicated to be worse (8 out of 10 for 2nd, 3rd and 4th digits, 4 out of 10 left 5th digit, and 5 out of 10 L thumb). See scanned section of chart. Aubrie denied use of splints and indicated that she has no trouble sleeping (when taking naps and/or sleeping at night time). She denied waking up from pain/discomfort and/or having pain/discomfort in the mornings. She stated that she feels that she has impaired sensation of the distal thumb, 2nd and 3rd digits of the right hand. 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 Aubrie's main concern was decreased ability to write for sustained periods of time; she reports ability to write approx 2-inches in journal before being in 9 out of 10 pain. Therefore, evaluation focused on education/adaptive equipment education and discussion of additional options (referral to UE client solutions specialist for consultation re: surgical options) given the chronic nature of systems w/ recommendation to consult w/ PCP first. Discussion focused on joint protection and available resources (writing AE, changing corporate recruiter of writing tool, use of larger movement patterns, paraffin bath, use of heat, gardening hand care). Aubrie denied any questions and denied need for additional visits. Contact information for this outpatient therapist was provided if additional questions were to arise. Patient Recommendations Discharge from Occupational Therapy
== END 2021-08-26 08:41 ==
LOC: OT 13:04
PROVIDERS: Family Provider Internal Medicine; PCP Internal Medicine; Referring Provider Physical Medicine & Rehabilitation; Visit Provider Physical Medicine & Rehabilitation
DX: G56.03 Carpal tunnel syndrome, bilateral upper limbs (principal)
CPT/HCPCS: 97165; 97530

== ENCOUNTER → 2021-11-10 13:43 | Outpatient (CLI) | payer MEDICARE, OTHER, SELFPAY ==
[2021-11-10 16:09] LABS: Alanine Aminotransferase 19 IU/L (<35); Albumin Globulin Ratio 1.5 (1.0-2.8); Alkaline Phosphatase 70 U/L (38-126); Aspartate Aminotransferase 23 IU/L (14-36); BUN Creatinine Ratio 21.7 (6-22); Bilirubin Total 0.3 mg/dL (0.2-1.3); Blood Urea Nitrogen 15 mg/dL (7-17); Calcium 8.8 mg/dL (8.4-10.2); Carbon Dioxide 26 mmol/L (22-32); Chloride 106 mmol/L (98-107); Estimated Glomerular Filt Rate > 60 mL/min (>60); Globulin 2.7 g/dL (1.7-4.1); Glucose 84 mg/dL (80-110); HEMOLYSIS < 15 (0-50); Potassium 3.7 mmol/L (3.4-5.1); Sodium 139 mmol/L (137-145); Total Protein 6.7 g/dL (6.3-8.2)
== END ==
PROVIDERS: Family Provider Internal Medicine; PCP Internal Medicine; Referring Provider Internal Medicine; Visit Provider Internal Medicine
DX: R10.9 Unspecified abdominal pain (principal)
CPT/HCPCS: 36415; 80053

== ENCOUNTER → 2021-11-11 13:50 | Outpatient (CLI) | payer MEDICARE, OTHER, SELFPAY ==
--- NOTE | 2021-11-11 | DI.CT.S_ITS ---
PROCEDURE: CT ABDOMEN PELVIS W CON INDICATIONS: RIGHT LOWER QUADRANT PAIN TECHNIQUE: After the administration of oral and intravenous contrast, axial sections were acquired from the lung bases to the pubic symphysis. Coronal and sagittal reformats were performed. For radiation dose reduction, the following was used: automated exposure control, adjustment of mA and/or kV according to patient size. COMPARISON:[facility], CT, CT KIDNEY URETER BLADDER (KUB), 04/02/2018, 8:53. [facility], CT, ABDOMEN/PELVIS WITH CONTRAST, 12/10/2014, 12:27. FINDINGS: Image quality: Excellent. Lung bases: Unremarkable. Heart: No significant findings. ABDOMEN: Liver: Very mild diffuse hepatic steatosis. Gallbladder: Unremarkable. Biliary ducts: Unremarkable. Pancreas: Unremarkable. Spleen: Unremarkable. Adrenal Glands: Unremarkable. Kidneys and Ureters: Again noted are multiple bilateral nonobstructing renal stones. The left collecting system is dilated with a mildly thickened wall. There is a possible goblet shaped appearance at the ureteropelvic junction which raises the question of a possible transitional cell carcinoma of the proximal ureter. There is mild inflammatory change in the subjacent fat. Stomach and Bowel: There is moderate to severe sigmoid diverticulosis without evidence of diverticulitis. There is a moderately large fecal load. The colon is redundant and somewhat diffusely dilated. Peritoneum: No abnormal intraperitoneal fluid. No free air. Ventral Wall: No hernia. Abdominal Nodes: No retroperitoneal or mesenteric adenopathy by size criteria. Vessels: Aorta and inferior vena cava are normal in size. PELVIS: Pelvic Organs: Uterus is surgically absent. There is posterior pelvic floor relaxation. The rectum is below the pubococcygeal line. Bladder: Unremarkable. Pelvic Nodes: No enlarged lymph nodes. Miscellaneous: No inguinal hernias are seen. Bones: Lumbar degenerative change. No lytic or blastic bony lesions. No compression fractures. IMPRESSION: 1. 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 This results in dilatation of the left renal pelvis and mild left hydronephrosis. 2. Numerous nonobstructing bilateral renal stones. 3. Sigmoid diverticulosis. 4. Posterior pelvic relaxation. Comment: Recommend urological consultation. Dictated by: Raghav Mcknight M.D. on 11/11/2021 at 17:13 Approved by: Raghav Mcknight M.D. on 11/11/2021 at 17:20
== END ==
PROVIDERS: Family Provider Internal Medicine; PCP Internal Medicine; Referring Provider Internal Medicine; Visit Provider Internal Medicine
DX: R10.31 Right lower quadrant pain (principal); N13.30 Unspecified hydronephrosis; N20.0 Calculus of kidney; K57.30 Diverticulosis of large intestine without perforation or abscess without bleeding
CPT/HCPCS: 74177; Q9967

== ENCOUNTER → 2021-12-12 09:29 | Outpatient (CLI) | payer MEDICARE, OTHER, SELFPAY ==
[2021-12-12 10:09] LABS: Appearance Urine UA CLEAR; Bilirubin Urine UA NEGATIVE (NEGATIVE); Color Urine UA YELLOW; Glucose Urine UA NEGATIVE (Negative); Ketones Urine UA NEGATIVE (NEGATIVE); Leukocyte Esterase Urine UA 1+ (NEGATIVE); Nitrite Urine UA NEGATIVE (Negative); Occult Blood Urine UA 3+ (Negative); Protein Urine UA TRACE (Negative); Specific Gravity Urine UA <=1.005 (1.000-1.035); Urobilinogen Urine UA 0.2 E.U./dL (0.2)
[2021-12-12 10:19] LABS: pH Urine UA 5.5 (4.5-8.0)
[2021-12-12 10:25] LABS: Amorphous Sediment Urine 1+; Bacteria Urine Moderate (10-30); Culture Indicated Urine Specimen Cultured; RBC Urine 5-10/HPF (0-5/HPF); WBC Urine 5-10/HPF (0-5/HPF)
== END ==
PROVIDERS: Family Provider Internal Medicine; PCP Internal Medicine; Visit Provider Specialist
DX: D41.22 Neoplasm of uncertain behavior of left ureter (principal); N13.30 Unspecified hydronephrosis; N20.0 Calculus of kidney; Z87.442 Personal history of urinary calculi
CPT/HCPCS: 81001; 81002; 87086; 99215

== ENCOUNTER → 2021-12-28 14:23 | Outpatient (CLI) | payer MEDICARE, OTHER, SELFPAY ==
[2021-12-28 15:25] LABS: COVID19 -Nasal RAPID Negative (Negative)
== END ==
PROVIDERS: Family Provider Internal Medicine; PCP Internal Medicine; Visit Provider Specialist
DX: Z20.822 Contact with and (suspected) exposure to COVID-19 (principal)
CPT/HCPCS: 87635; C9803

== ENCOUNTER 2021-12-30 10:36 | Day surgery (SDC) | payer MEDICARE, OTHER, SELFPAY ==
--- NOTE | 2021-12-30 | PATH_ITS ---
Note [facility] Accession Number: [id number] TESTS RESULT FLAG UNITS REF RANGE LAB Clinician Provided Cytology Information No. of containers..01 Urine Bottle Source: URINE DIAGNOSIS: URINE NEGATIVE FOR HIGH-GRADE UROTHELIAL CARCINOMA ([facility]). BENIGN UROTHELIAL CELLS IN TISSUE FRAGMENTS. DIFFERENTIAL DIAGNOSIS INCLUDES INSTRUMENTATION, LITHIASIS AND NEOPLASM. Pathologist ICD10: D41.22 Signed out by: Marleni Cruz MD, Pathologist NPI- [id number] Performed by: Carl Layne, Disability Insurance Hearing Officer ([facility]) Gross description: 50 CC, YELLOW, CLOUDY RECEIVED: FRESH IN ORANGE CAP CONTAINER. /VDU 01/02/2022 0858 Local FLAG LEGEND: L-Low Normal,H-High Normal,LL-Alert Low,HH-Alert High <-Panic Low,>-Panic High,A-Abnormal,AA-Critical Abnormal Performed at: 01 =Z [facility] [address], [place] [address] Jatin Paige MD, Performed at: 01 [facility] [address], [place], [place] [id number] MD Jatin Paige MD Phone: [phone]
--- NOTE | 2021-12-30 | DI.RAD.S_ITS ---
PROCEDURE: XR ABDOMEN 1V INDICATIONS: LT CYSTOSCOPY TECHNIQUE: 3 images, 2 cine series obtained fluoroscopically intraprocedurally. COMPARISON: [facility], CT, CT ABDOMEN PELVIS W CON, 11/11/2021, 15:43. [facility], CR, ABDOMEN 1 VIEW, 11/11/2013, 12:38. FINDINGS: Multiple intraprocedural fluoroscopic images obtained. A renal collecting system is injected with contrast and appears dilated/patulous. IMPRESSION: Intraprocedural fluoroscopy was provided for guidance and anatomical localization. Please see the procedure report for further details. Dictated by: Latrell Mauricio M.D. on 12/30/2021 at 17:02 Approved by: Latrell Mauricio M.D. on 12/30/2021 at 17:05
--- NOTE | 2021-12-30 10:19 | SUR.PREOP ---
1000 - Pt. still not arrives for procedure. Called at home and states her appointment card says 10:45. Instructed pt to get here safely as soon as she was able. States will be enroute jose.
[2021-12-30] MEDS: ACETAMINOPHEN IV 1,000 MG/100 ML VIAL 400 MG IV (11:00)
--- NOTE | 2021-12-30 11:07 | PM.PREOP ---
Pre-operative Note COVID-19 Criteria for continued procedure: Expected advancement of disease process, Possibility delay results in more complex future surgery or treatment, Deterioration of the patient's condition or overall health, Delay expected to result in less-positive ultimate med/surg outcome and Non-surgical alternatives not available or appropriate per current SOC Interval Note History & Physical reviewed/Exam performed by Physician: Yes Changes to H&P: No
[2021-12-30 11:08] VITALS: BP 142/87; PULSE 90; RESP 16; TEMP 37.2; O2SAT 96
[2021-12-30] MEDS: CEFAZOLIN 2 GM/100 ML PREMIX 100 ML IV (11:24)
--- NOTE | 2021-12-30 11:54 | SUR.OPER ---
Lithotomy on padded OR bed, head on pillow, arms secured on padded arm boards at <90 degrees abduction. Legs secured in padded yellow fins stirrups.
[2021-12-30] MEDS: IOPAMIDOL 50 ML VIAL INJ (12:00)
--- NOTE | 2021-12-30 12:23 | P.OP_ITS ---
Operative Date/Time/Diagnoses Date of procedure: 12/30/21 Time of procedure: 12:12 Pre-op diagnosis: 1. Left hydronephrosis. 2. 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 Post-op diagnosis: same Procedure & Clinicians Procedure: 1. Cystoscopy/left retrograde pyelogram. 2. Cystoscopy/left ureteroscopy. 3. Cystoscopy/dilation left UPJ ureteral segment. Same procedure as scheduled: Yes Indications: 1. Left hydronephrosis. 2. Thickening of ureteral wall left UPJ. Surgeon: Zeeshan Rendon Click Yes if Unassisted: Yes Operative Notes Findings: 1. Urethra-normal caliber without mass or lesion. 2. Bladder-trace trabeculation. Normal ureteral orifices bilaterally. No evidence of stone, tumor, foreign body. 3. Left ureter-left retrograde pyelogram demonstrated normal caliber ureter with a narrowing of the lumen without irregularity or filling defect at the left ureteropelvic junction. Contrast was seen to flow through the region and filling the moderately dilated intrarenal collecting system. Normal caliber and urothelial appearance in its entirety, with the exception of the vicinity of the left ureteropelvic junction. The urothelium appeared mildly edematous with relative narrowing. There was no suspicious neoplastic changes of the visualized urothelium. 4. Left kidney-moderate hydronephrosis and moderately dilated calices without evidence urothelial lesion. Urine for cytology was obtained and labeled left renal pelvis. Closure Type: not applicable Specimen(s): other (Urine from left renal pelvis for cytology.) Estimated Blood Loss (mL): 0 Blood products transfused: none Procedure in detail: The patient was positioned supine was administered general anesthesia. She was then repositioned semi lithotomy and the lower abdomen, genitalia, and groin were then prepped and draped in sterile fashion. A 5 Bulgarian whistle tip catheter was then advanced the left collecting system. A left retrograde pyelogram was then performed with half-strength Isovue contrast with the findings as described above. The whistle-tip catheter was then removed, and a 0.35 hybrid guidewire was advanced into the left collecting system under direct and fluoroscopic guidance. Over this a 12 Bulgarian by 6 cm balloon dilating catheter was positioned across the left ureterovesical junction. The balloon was then inflated to 18 atmospheres and held in position for 5 minutes. The balloon was then deflated and backloaded off the wire. The wire was secured to the surgical drape. Now the semi-rigid ureteral scope was selected and advanced the lower urinary tract and then in the left ureteral orifice and advanced proximally under direct visualization with the findings as described above once in to the renal pelvis 40 cc of straw-colored slightly turbid fluid was withdrawn and submitted for cytologic examination. Additional contrast was administered to outlined the collecting system. The ureteral scope was then removed. Now, over the 0.35 hybrid guidewire the 12 Bulgarian by 6 cm balloon dilating catheter was advanced over the wire and positioned across the left ureteropelvic junction. The balloon was then inflated to 18 atmospheres. Under fluoroscopy was seen then to move very easily over the wire without evidence of significant fixed obstruction at the site. The balloon was then deflated and both the balloon dilating catheter and wire were removed in their entirety. The panendoscope was then once again passed in the bladder and the bladder contents drained a final time. The panendoscope was then removed a final time. The patient was then repositioned in supine, was awakened, transferred to [facility], and then transported to recovery in stable condition. Complications: none Post-operative Condition: stable Disposition: PACU Plan for aftercare: 1. Discharge home. 2. Schedule MAG-3 Lasix renogram and review in Urology Clinic.
[2021-12-30 12:24] VITALS: BP 130/85; PULSE 99; RESP 18; TEMP 36.3; O2SAT 95
[2021-12-30 12:29] VITALS: BP 123/75; PULSE 96; RESP 16; O2SAT 94
[2021-12-30 12:30] LABS: Appearance Urine UA CLEAR; Bilirubin Urine UA NEGATIVE (NEGATIVE); Color Urine UA YELLOW; Glucose Urine UA NEGATIVE (Negative); Ketones Urine UA NEGATIVE (NEGATIVE); Leukocyte Esterase Urine UA TRACE (NEGATIVE); Nitrite Urine UA NEGATIVE (Negative); Occult Blood Urine UA 3+ (Negative); Protein Urine UA 2+ (Negative); Urobilinogen Urine UA 0.2 E.U./dL (0.2)
[2021-12-30 12:32] LABS: Amorphous Sediment Urine 1+; Bacteria Urine Moderate (10-30); Culture Indicated Urine Specimen Cultured; RBC Urine 5-10/HPF (0-5/HPF); WBC Urine 5-10/HPF (0-5/HPF)
[2021-12-30 12:34] VITALS: BP 132/77; PULSE 95; RESP 18; O2SAT 93
[2021-12-30 12:42] VITALS: BP 137/82; PULSE 88; RESP 14; TEMP 36.3; O2SAT 94
== END 2021-12-30 13:20 | disposition home or self-care (01) ==
PROVIDERS: Family Provider Internal Medicine; PCP Internal Medicine; Referring Provider Specialist; Visit Provider Specialist
PROC: (CPT 52345; principal; 2021-12-30 11:15)
DX: N13.30 Unspecified hydronephrosis (principal); Q62.11 Congenital occlusion of ureteropelvic junction
CPT/HCPCS: 52345; 00918; 74018; 76000; 81001; 82962; 87086; J0131; J0690; J2704; J3010

== ENCOUNTER → 2022-01-11 13:34 | Outpatient (CLI) | payer MEDICARE, OTHER, SELFPAY ==
--- NOTE | 2022-01-11 13:35 | DI.NM.S_ITS ---
PROCEDURE: NM RENAL FUNCTION W LASIX RADIOPHARMACEUTICAL: 10.8 mCi Tc-99m MAG3 IV and 40 mg furosemide IV. INDICATIONS: possible left ureteropelvic junction obstruction TECHNIQUE: The patient was hydrated orally before the examination was begun. After intravenous administration of Tc-99m MAG3, posterior abdominal radionuclide angiogram and sequential (1 minute each frame) renal images were obtained. A time-activity curve for each kidney was generated and analyzed. To evaluate for obstruction, the patient was given 40 mg furosemide via slow intravenous injection after the start of the examination. Sequential images were obtained for up to an additional 20 minutes. COMPARISON: [facility], CT, CT ABDOMEN PELVIS W CON, 11/11/2021, 15:43. FINDINGS: Perfusion: There is normal vascular flow to both kidneys. Morphology: Both kidneys are normal in size and shape. The left renal pelvis appears patulous. The ureters and bladder fill with tracer, and appear normal. Function: Right Kidney kidney demonstrates less cortical tracer uptake than left kidney, and slower cortical uptake, with [id number] approximately 6.5 minutes (normal range is from 3 to 5 minutes). Left kidney has borderline delayed cortical uptake with [id number] greater than 5 minutes (normal range is from 3 to 5 minutes). The right kidney contributes 39.1% of total renal function. The left kidney contributes 60.9% of total renal function. Lasix stimulation: After diuretic administration, there is prompt clearance of tracer activity from the renal collecting systems in both kidneys. The half-time of emptying of tracer activity from the right pelvicaliceal system is 16.4 minutes. The half-time of emptying from the left pelvicaliceal system is 8.1 minutes. Normal emptying half-times are less than 10 minutes; borderline ranges are from 10 to 20 minutes. IMPRESSION: 1. Patulous left renal pelvis. The left kidney does not, however, appear to be obstructed (T1/2 is 8.1 minutes). 2. Decreased right renal function compared to the left renal function. 3. Right kidney contributes 39.1% of total renal function; left kidney contributes 60.9% of total renal function. Dictated by: Heena Hernandez M.D. on 01/11/2022 at 15:55 Approved by: Heena Hernandez M.D. on 01/11/2022 at 16:09
== END ==
PROVIDERS: Family Provider Internal Medicine; PCP Internal Medicine; Referring Provider Specialist; Visit Provider Specialist
DX: D41.22 Neoplasm of uncertain behavior of left ureter (principal); N20.0 Calculus of kidney; Z87.442 Personal history of urinary calculi
CPT/HCPCS: 78708; A9562

== ENCOUNTER 2022-02-07 08:16 | Outpatient (CLI) | payer MEDICARE, OTHER, SELFPAY ==
[2022-02-07] VITALS (10 sets, daily range): BP systolic 133–162; BP diastolic 78–94; PULSE 72–80; RESP 12–19; TEMP 37; O2SAT 95–99
--- NOTE | 2022-02-07 08:18 | DI.RAD.S_ITS ---
PROCEDURE: PAIN SI JOINT INJECTION KENZIE COMPARISON: [facility], , PAIN SI JOINT INJECTION KENZIE, 07/12/2021, 14:35. INDICATIONS: JOINT DYSFUNCTION FINDINGS: Fluoroscopic spot filming was performed to verify placement of spinal needles on both sides of the sacroiliac joints. Appropriate location of the needle tips was confirmed by injection of iodinated contrast. IMPRESSION: Intraprocedural examination demonstrating appropriate positions of the needles. Dictated by: Morris Rodriguez M.D. on 02/07/2022 at 9:28 Approved by: Morris Rodriguez M.D. on 02/07/2022 at 9:29
[2022-02-07] MEDS: BETAMETHASONE 30 MG/5 ML MDV 12 MG INJ (09:22)
[2022-02-07] MEDS: IOPAMIDOL 15 ML VIAL 3 ML INJ (09:22)
[2022-02-07] MEDS: BUPIVACAINE 0.5% (PF) VIAL 5 ML INJ (09:22)
[2022-02-07] MEDS: LIDOCAINE 1% 20 ML 5 ML INJ (09:25)
[2022-02-07] MEDS: MIDAZOLAM 2 MG/2 ML VIAL IV (09:27)
--- NOTE | 2022-02-07 09:37 | PM.PROC.IR.1 ---
Date/Time/Diagnoses Date of procedure: 02/07/22 Time of procedure: 09:37 Pre-procedure diagnosis: Sacroiliac joint pain/DJD Post-procedure diagnosis: same Procedure Notes Procedure: Fluoroscopic guided contrast controlled bilateral sacroiliac joint injection Indications: Aubrie is referred by Dr. March for treatment of bilateral sacroiliac joint DJD Physician: Shawn Jay Total Fluoroscopy time (seconds): 16 Total sedation minutes: 14 Complications: none Procedure in detail & Post-procedure care: Description of procedure Fluoroscopic guided, contrast controlled bilateral sacroiliac joint injection Following review of allergies and review of potential side effects and complications, including, but not necessarily limited to, infection, allergic reaction, local tissue breakdown, temporary as well as permanent nerve injury, paralysis, stroke and possible , the patient indicated that they understood and agreed to proceed. An informed consent was signed by the patient, witnessed by a nurse, and placed in the patient's chart. Additionally, other treatment options including modalities, medications, and physical therapy were reviewed with the patient. After review of previous anaesthesic history and IV conscious sedation the patient was deemed safe to proceed with today?s procedure with IV conscious sedation as ASA class II designation. Safety time-out was performed to confirm patient ID, procedure to be performed and site of procedure. IV sedation was accomplished with a combination of 2mg Versed were administered by the RN after DO order, titrated to patient comfort during the course of the procedure while the patient remained responsive to all verbal commands In the prone position following sterile prep and drape of the pelvic region, the hyper lucency on in the inferior aspect of the sacroiliac joint was identified fluoroscopically the skin was anesthetized be a 25 gauge 1.5 inch needle with approximately 2cc of 1% lidocaine solution. At this point, a 22 gauge 3 in spinal needle was atraumatically introduced and advanced under fluoroscopic guidance into the inferior aspect of the right sacroiliac joint. Following negative aspiration, approximately 0.3cc of Isovue-300 was injected confirming intra-articular placement without vascular uptake. Radiographic data, including multiple fluoroscopic views of the pelvis, reveals a spinal needle in the sacroiliac joint hyper lucent zone. Subsequent view show flow contrast tear superiorly and inferiorly within the joint capsule without vascular intrathecal uptake. At this point a total of 1cc of 0.5% Marcaine was combined with 1cc of 6mg of betamethasone was injected without incident. Attention was then refocused the left sacroiliac joint where the procedure was replicated. The procedure tolerated the procedure well without signs or symptoms of complications prior to transfer to the recovery area continued monitoring without incident. The patient was then transferred to the recovery area with a bur observed for an appropriate time after the injection. The patient reverted a vas score of 7 prior to the procedure and post-procedure vas of 1. Postop instructions The patient was provided with a pain like to continue to record the patient's response to the target specific procedure prior to the patient's follow-up visit with the referring physician. Additionally, specific post injection care instructions and a contact number to our office were provided if concerns arise regarding the possible complications associated with procedure are suspected.
== END 2022-02-07 10:06 | disposition home or self-care (01) ==
LOC: RAD 08:17
PROVIDERS: Family Provider Internal Medicine; PCP Internal Medicine; Referring Provider Physical Medicine & Rehabilitation; Visit Provider Physical Medicine & Rehabilitation
DX: M53.3 Sacrococcygeal disorders, not elsewhere classified (principal); M46.1 Sacroiliitis, not elsewhere classified
CPT/HCPCS: 27096; 99152; J0702; J2250

== ENCOUNTER → 2022-03-31 08:21 | Outpatient (CLI) | payer MEDICARE, OTHER, SELFPAY ==
[2022-03-31 09:43] LABS: Add Manual Diff / Slide Review NO; Basophils Absolute Auto 0 /uL (0-100); Basophils Percent Auto 0.6 % (0-2); Eosinophils Absolute Auto 200 /uL (0-450); Eosinophils Percent Auto 2.2 % (2-4); Hematocrit 36.1 % (36-46); Hemoglobin 11.9 g/dL (12.0-16.0); Lymphocytes Absolute Auto 3000 /uL (1100-4500); Mean Corpuscular HGB Conc 32.9 % (30-36); Mean Corpuscular Hemoglobin 29.8 PG (26-34); Mean Corpuscular Volume 90.5 fL (80-100); Monocytes Absolute Auto 800 /uL (0-900); Monocytes Percent Auto 8.8 % (3-14); Neutrophils Absolute Auto 4700 /uL (1500-7000); Neutrophils Percent Auto 54.4 % (50-75); Platelet Count 217 X10^3/uL (150-400); Red Blood Cell Count 3.99 X10^6/uL (4.0-5.2); Red Cell Distribution Width 13.7 % (11.6-14.8); White Blood Cell Count 8.7 X10^3/uL (4.5-11.0)
[2022-03-31 10:04] LABS: Erythrocyte Sedimentation Rate 6 MM/HR (0-20)
[2022-03-31 10:11] LABS: Alanine Aminotransferase 18 IU/L (<35); Alkaline Phosphatase 73 U/L (38-126); Aspartate Aminotransferase 21 IU/L (14-36); BUN Creatinine Ratio 23.6 (6-22); Bilirubin Total 0.3 mg/dL (0.2-1.3); Bilirubin Unconjugated 0.1 mg/dL (0.0-1.1); Blood Urea Nitrogen 17 mg/dL (7-17); Carbon Dioxide 27 mmol/L (22-32); Chloride 105 mmol/L (98-107); Estimated Glomerular Filt Rate > 60 mL/min (>60); Glucose 89 mg/dL (80-110); HEMOLYSIS < 15 (0-50); Sodium 139 mmol/L (137-145); Total Protein 6.7 g/dL (6.3-8.2)
[2022-03-31 10:16] LABS: High Sensitivity CRP - Cardiac 1.2 mg/L (1.0-3.0)
[2022-03-31 10:17] LABS: Rheumatoid Factor < 8.6 IU/mL (<12.0)
[2022-03-31 10:40] LABS: Thyroid Stimulating Hormone 0.053 uIU/mL (0.47-4.68)
[2022-03-31 19:40] LABS: Albumin Globulin Ratio 1.5 (1.0-2.8); Globulin 2.7 g/dL (1.7-4.1)
[2022-04-01 21:08] LABS: SS A Ro Sjogrens Antibody < 0.2 AI (0.0-0.9); SS B La Sjogrens Antibody < 0.2 AI (0.0-0.9)
[2022-04-05 15:11] LABS: ANA Screen, IFA Negative (.)
== END ==
PROVIDERS: Family Provider Internal Medicine; PCP Internal Medicine; Referring Provider Ophthalmology; Visit Provider Ophthalmology
DX: M05.4 Rheumatoid myopathy with rheumatoid arthritis (principal)
CPT/HCPCS: 36415; 80048; 80076; 84443; 84550; 85025; 85651; 86038; 86140; 86235; 86430

== ENCOUNTER → 2022-04-26 09:01 | Outpatient (CLI) | payer MEDICARE, OTHER, SELFPAY ==
--- NOTE | 2022-04-26 | DI.RAD.S_ITS ---
PROCEDURE: XR KNEE RT 3V INDICATIONS: right knee pain TECHNIQUE: 3 views of the knee were acquired. COMPARISON: None. FINDINGS: Bones: No fractures or dislocations. Moderate tricompartmental osteoarthritis in right knee is seen more notably in patellofemoral compartment with significant joint space narrowing, subchondral sclerosis and marginal osteophyte formation. Slight lateral subluxation of patella is also noted. No suspicious bony lesions. Soft tissues: No significant joint effusion. 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 IMPRESSION: Moderate tricompartmental osteoarthritis most notably in patellofemoral compartment. No fracture or dislocation. Chondrocalcinosis as above. No significant joint effusion. Dictated by: Memo Shepard M.D. on 04/26/2022 at 10:14 Approved by: Memo Shepard M.D. on 04/26/2022 at 10:20
== END ==
PROVIDERS: Family Provider Internal Medicine; PCP Internal Medicine; Referring Provider Internal Medicine; Visit Provider Internal Medicine
DX: M17.11 Unilateral primary osteoarthritis, right knee (principal); M11.261 Other chondrocalcinosis, right knee; M25.561 Pain in right knee
CPT/HCPCS: 73562

== ENCOUNTER → 2022-05-24 08:09 | Outpatient (CLI) | payer MEDICARE, OTHER, SELFPAY ==
--- NOTE | 2022-05-24 | DI.MG.S_ITS ---
BILATERAL DIGITAL SCREENING MAMMOGRAM 3D/2D WITH CAD: 05/24/2022 CLINICAL: Routine screening. Family history of breast cancer. Comparison is made to exams dated: 05/23/2021 mammogram, 05/21/2020 mammogram, and 05/21/2019 mammogram - [facility]. There are scattered areas of fibroglandular density in both breasts (category b / 25%-50% glandular tissue). Current study was also evaluated with a Computer Aided Detection (CAD) system. There are benign calcifications in both breasts. No significant masses, calcifications, or other findings are seen in either breast. There has been no significant interval change. IMPRESSION: BENIGN There is no mammographic evidence of malignancy. A 1 year screening mammogram is recommended. Based on the Tyrer Cuzick model (a risk assessment model) the patient's lifetime risk is 0.3% and her 10 year risk is 0.0%. According to the ACR, ACS, and NCCN guidelines, an annual breast MRI exam along with mammogram is recommended if the patient's lifetime risk is 20% or greater. This exam was interpreted at Station ID: [id number]. NOTE: For mammograms, a report in lay terms will be sent to the patient. Approximately 15% of breast malignancies will not be visualized mammographically. In the management of a palpable breast mass, a negative mammogram must not discourage biopsy of a clinically suspicious lesion. Electronically Signed By: Joaquín bradford/familia:05/24/2022 08:34:30 letter sent: Normal Exam ACR BI-RADS Category 2: Benign Finding(s) 3342F
== END ==
PROVIDERS: Family Provider Internal Medicine; PCP Internal Medicine; Referring Provider Internal Medicine; Visit Provider Internal Medicine
DX: Z12.31 Encounter for screening mammogram for malignant neoplasm of breast (principal); Z80.3 Family history of malignant neoplasm of breast
CPT/HCPCS: 77063; 77067

== ENCOUNTER → 2022-08-09 10:46 | Outpatient (CLI) | payer MEDICARE, OTHER, SELFPAY ==
--- NOTE | 2022-08-09 | DI.RAD.S_ITS ---
Bone Density Report Name: LAURA MULLEN Age: 82 Sex: Female Ethnicity: White Date of : 1940 Indication: osteopenia; Referring Provider: DANIE CARDONA Study: Bone densitometry was performed. Exam Date: August 09, 2022 Accession number: [id number] Bone Density: Region BMD T-score Z-score Classification AP Spine(L2, L3, L4) 1.035 -0.4 2.5 Normal Femoral Neck (Left) 0.624 -2.0 0.5 Osteopenia Total Hip (Left) 0.708 -1.9 0.4 Osteopenia Femoral Neck (Right) 0.513 -3.0 -0.5 Osteoporosis Total Hip (Right) 0.656 -2.3 0.0 Osteopenia Total Hip Mean 0.682 -2.1 0.2 Osteopenia World Health Organization criteria for BMD impression classify patients as: Normal (T-score at or above -1.0), Osteopenia (T-score between -1.0 and -2.5), or Osteoporosis (T-score at or below -2.5). 10-year Fracture Risk: FRAX not reported because: Some T-score for Spine Total or Hip Total or Femoral Neck at or below -2.5 Previous Exams: -- Region Exam Age BMD T-score BMD Change BMD Change Date g/cm2 vs Baseline vs Previous -- AP Spine (L2-L4) 08/09/2022 82 1.035 -0.4 -0.054 (-5.0%)# -0.054 (-5.0%)# 04/03/2017 77 1.089 0.1 Total Hip(Left) 08/09/2022 82 0.708 -1.9 0.003 (0.5%)# 0.003 (0.5%)# 05/21/2020 80 0.705 -1.9 Total Hip(Right) 08/09/2022 82 0.656 -2.3 -0.019 (-2.8%)# -0.019 (-2.8%)# 05/21/2020 80 0.675 -2.2 -- *Denotes significance at 95% confidence level, LSC for AP Spine = 0.022 g/cm2, LSC for Total Hip = 0.027 g/cm2 # Denotes dissimilar scan types or analysis methods Impression: The patient has osteoporosis, based on the Right Femoral Neck T-score. No significant bone loss was observed. Discussion: INCREASED RISK OF FRACTURE. BONE DENSITY IS UNDESIRABLY LOW AT ONE OR MORE SKELETAL SITES, CONSISTENT WITH POSTMENOPAUSAL OSTEOPOROSIS. This patient's lowest T-score meets the World Health Organization's (WHO) criteria for osteoporosis at one or more sites (T-score -2.5 or below). In untreated patients, the risk of osteoporotic fracture increases approximately two-fold for each 1.0 SD decrease in T-score. Low bone density is not the only risk factor for fracture; also consider factors such as patient's age, frailty or poor health, risk of falling, risk of injury, previous osteoporotic fracture, family history of osteoporosis, cigarette smoking, low body weight, etc. Not everyone with low bone mineral density has osteoporosis; osteomalacia and other metabolic bone disorders should also be considered. Patients who have osteoporosis should be evaluated for specific diseases and conditions (secondary causes) that may cause or contribute to bone loss. The [place] [employer]ocrinologists (AACE) and National Osteoporosis Foundation (NOF) recommend pharmacologic intervention for all postmenopausal women whose T-score is in this range. The patient should follow a healthful lifestyle (good nutrition with adequate calcium and vitamin D, and appropriate weight-bearing exercise). Follow-Up: Consider a repeat BMD and Vertebral Fracture Assessment (VFA) exam in 2 years or sooner if medically necessary, to reassess this patient's status. Reported by: JUAN C BURT M.D. on 08/09/2022 11:20:00 AM.
== END ==
PROVIDERS: Family Provider Internal Medicine; PCP Internal Medicine; Referring Provider Internal Medicine; Visit Provider Internal Medicine
DX: M81.0 Age-related osteoporosis without current pathological fracture (principal)
CPT/HCPCS: 77080

== ENCOUNTER 2022-09-21 08:15 | Outpatient (CLI) | payer MEDICARE, OTHER, SELFPAY ==
[2022-09-21] VITALS (10 sets, daily range): BP systolic 129–168; BP diastolic 65–85; PULSE 69–85; RESP 10–20; TEMP 36.9; O2SAT 94–98
--- NOTE | 2022-09-21 08:17 | DI.RAD.S_ITS ---
PROCEDURE: PAIN SI JOINT INJECTION KENZIE INDICATIONS: SACRAL DJD COMPARISON: [facility], XA, PAIN SI JOINT INJECTION KENZIE, 02/07/2022, 10:23. FINDINGS: On these intraprocedural images, there are spinal needles seen involving the inferior aspects of both sacroiliac joints. Appropriate positions of the tips of the needles were confirmed by injection of a small amount of iodinated contrast. IMPRESSION: Successful bilateral sacroiliac joint injection. Dictated by: Morris Rodriguez M.D. on 09/21/2022 at 15:26 Approved by: Morris Rodriguez M.D. on 09/21/2022 at 15:27
[2022-09-21] MEDS: MIDAZOLAM 2 MG/2 ML VIAL IV (09:20)
[2022-09-21] MEDS: BUPIVACAINE 0.5% (PF) 10 ML VIAL 5 ML INJ (09:21)
[2022-09-21] MEDS: BETAMETHASONE 30 MG/5 ML MDV 12 MG INJ (09:21)
[2022-09-21] MEDS: IOPAMIDOL 15 ML VIAL 3 ML INJ (09:21)
[2022-09-21] MEDS: LIDOCAINE 1% 20 ML 5 ML INJ (09:22)
--- NOTE | 2022-09-21 09:34 | PM.PROC.IR.1 ---
Date/Time/Diagnoses Date of procedure: 09/21/22 Time of procedure: 09:34 Pre-procedure diagnosis: Sacroiliac joint pain/DJD Post-procedure diagnosis: same Procedure Notes Procedure: Fluoroscopic guided contrast controlled bilateral sacroiliac joint injection Indications: Aubrie is referred by Dr. Perry for treatment of bilateral sacroiliac joint DJD Physician: Shawn Jay Total Fluoroscopy time (seconds): 15 Total sedation minutes: 14 Complications: none Procedure in detail & Post-procedure care: Description of procedure Fluoroscopic guided, contrast controlled bilateral sacroiliac joint injection Following review of allergies and review of potential side effects and complications, including, but not necessarily limited to, infection, allergic reaction, local tissue breakdown, temporary as well as permanent nerve injury, paralysis, stroke and possible , the patient indicated that they understood and agreed to proceed. An informed consent was signed by the patient, witnessed by a nurse, and placed in the patient's chart. Additionally, other treatment options including modalities, medications, and physical therapy were reviewed with the patient. After review of previous anaesthesic history and IV conscious sedation the patient was deemed safe to proceed with today?s procedure with IV conscious sedation as ASA class II designation. Safety time-out was performed to confirm patient ID, procedure to be performed and site of procedure. IV sedation was accomplished with a combination of 2mg Versed were administered by the RN after DO order, titrated to patient comfort during the course of the procedure while the patient remained responsive to all verbal commands In the prone position following sterile prep and drape of the pelvic region, the hyper lucency on in the inferior aspect of the sacroiliac joint was identified fluoroscopically the skin was anesthetized be a 25 gauge 1.5 inch needle with approximately 2cc of 1% lidocaine solution. At this point, a 22 gauge 3 in spinal needle was atraumatically introduced and advanced under fluoroscopic guidance into the inferior aspect of the right sacroiliac joint. Following negative aspiration, approximately 0.3cc of Isovue-300 was injected confirming intra-articular placement without vascular uptake. Radiographic data, including multiple fluoroscopic views of the pelvis, reveals a spinal needle in the sacroiliac joint hyper lucent zone. Subsequent view show flow contrast tear superiorly and inferiorly within the joint capsule without vascular intrathecal uptake. At this point a total of 1cc of 0.5% Marcaine was combined with 1cc of 6mg of betamethasone was injected without incident. Attention was then refocused the left sacroiliac joint where the procedure was replicated. The procedure tolerated the procedure well without signs or symptoms of complications prior to transfer to the recovery area continued monitoring without incident. The patient was then transferred to the recovery area with a bur observed for an appropriate time after the injection. The patient reverted a vas score of 7 prior to the procedure and post-procedure vas of 1. Postop instructions The patient was provided with a pain like to continue to record the patient's response to the target specific procedure prior to the patient's follow-up visit with the referring physician. Additionally, specific post injection care instructions and a contact number to our office were provided if concerns arise regarding the possible complications associated with procedure are suspected.
== END 2022-09-21 10:00 | disposition home or self-care (01) ==
PROVIDERS: Family Provider Internal Medicine; PCP Internal Medicine; Referring Provider Physical Medicine & Rehabilitation; Visit Provider Physical Medicine & Rehabilitation
DX: M53.3 Sacrococcygeal disorders, not elsewhere classified (principal); M46.1 Sacroiliitis, not elsewhere classified
CPT/HCPCS: 27096; 99152; J0702; J2250

== ENCOUNTER → 2022-10-12 12:09 | Outpatient (CLI) | payer MEDICARE, OTHER, SELFPAY ==
--- NOTE | 2022-10-12 12:09 | DI.CT.S_ITS ---
PROCEDURE: CT KIDNEY URETER BLADDER (KUB) INDICATIONS: calculus of kidney TECHNIQUE: Axial sections were acquired from the lung bases to the pubic symphysis. Coronal and sagittal reformats were performed. For radiation dose reduction, the following was used: automated exposure control, adjustment of mA and/or kV according to patient size. COMPARISON: [facility], CT, CT ABDOMEN PELVIS W CON, 11/11/2021, 15:43. [facility], CT, CT KIDNEY URETER BLADDER (KUB), 04/02/2018, 8:53. FINDINGS: Image quality: Excellent. Lung bases: Unremarkable. Heart: No significant findings. URINARY: Right Kidney: Multiple punctate calcifications are present relatively stable. However, there has been interval increase in size or new of the inferior pole calcification now measuring 4 mm. Right Ureter: No hydroureter. Left Kidney: Multiple calcifications are present which have increased in size and number compared to 2019, with largest calcification is in the inferior pole measuring 7 mm, Hounsfield units 1084. Appearances are overall stable since exam in 2021. There is a prominent unchanged appearance of the extrarenal pelvis. Left ureter is unchanged in appearance. 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 Appearance remains stable. No obstruction. Left Ureter: No hydroureter. Bladder: Normal wall thickness. No stones. ABDOMEN: Liver: Unremarkable. Gallbladder: Unremarkable. Biliary ducts: Unremarkable. Pancreas: Atrophic. Spleen: Splenic cyst is unchanged. Adrenal Glands: Unremarkable. Stomach and Bowel: Stomach, small bowel loops, and colon are nonobstructive. Colonic diverticula are present without associated inflammatory change. Peritoneum: No abnormal intraperitoneal fluid. No free air. Ventral Wall: No hernia. Abdominal Nodes: No enlarged retroperitoneal or mesenteric lymph nodes. Vessels: Aorta and inferior vena cava are normal in size. PELVIS: Pelvic Organs: Unremarkable. Pelvic Nodes: Unremarkable. Miscellaneous: No inguinal hernias are seen. Bones: Unremarkable. IMPRESSION: Bilateral renal calculi overall stable compared to 2021 without obstruction. Diverticulosis. Dictated by: Sally Ch M.D. on 10/12/2022 at 12:28 Approved by: Sally Ch M.D. on 10/12/2022 at 12:34
== END ==
PROVIDERS: Family Provider Internal Medicine; PCP Internal Medicine; Referring Provider Specialist; Visit Provider Specialist
DX: N20.0 Calculus of kidney (principal); K57.90 Diverticulosis of intestine, part unspecified, without perforation or abscess without bleeding
CPT/HCPCS: 74176

== ENCOUNTER → 2022-10-13 16:14 | Outpatient (CLI) | payer MEDICARE, OTHER, SELFPAY | PROVIDERS: Family Provider Internal Medicine; PCP Internal Medicine; Referring Provider Physician Assistant; Visit Provider Physician Assistant | DX: R30.0 Dysuria (principal) | CPT/HCPCS: 87086 ==

== ENCOUNTER → 2022-10-24 12:17 | Outpatient (CLI) | payer MEDICARE, OTHER, SELFPAY ==
--- NOTE | 2022-10-24 14:11 | DI.CT.S_ITS ---
PROCEDURE: CT ABDOMEN PELVIS W CON INDICATIONS: Right lower quadrant pain TECHNIQUE: After the administration of oral and intravenous contrast, axial sections were acquired from the lung bases to the pubic symphysis. Coronal and sagittal reformats were performed. For radiation dose reduction, the following was used: automated exposure control, adjustment of mA and/or kV according to patient size. COMPARISON:[facility], CT, CT ABDOMEN PELVIS W CON, 11/11/2021, 15:43. FINDINGS: Image quality: Excellent. Lung bases: Unremarkable. Heart: Cardiomegaly. ABDOMEN: Liver: Unremarkable. Gallbladder: Unremarkable. Biliary ducts: Unremarkable. Pancreas: Unremarkable. Spleen: Stable hypoattenuating splenic lesions, favoring a benign etiology. Adrenal Glands: Unremarkable. Kidneys and Ureters: Large burden of bilateral nonobstructing stones. There is a 7 millimeter stone in the left UVJ (1166 Hounsfield unit). Bilateral hydroureter. Soft tissue attenuation in the proximal left ureter, similar to prior. Stomach and Bowel: Colonic diverticulosis without evidence of diverticulitis. Peritoneum: No abnormal intraperitoneal fluid. No free air. Ventral Wall: No hernia. Abdominal Nodes: No retroperitoneal or mesenteric adenopathy by size criteria. Vessels: Aorta and inferior vena cava are normal in size. PELVIS: Pelvic Organs: Unremarkable. Bladder: Unremarkable. Pelvic Nodes: No enlarged lymph nodes. Miscellaneous: No inguinal hernias are seen. Bones: Unremarkable. IMPRESSION: Unchanged soft tissue attenuation of the proximal left ureter. Recommend urology referral if not already performed. Unchanged large burden of nonobstructing stones, including a 7 millimeter stone within the left renal pelvis. Chronic findings as above. Dictated by: Kenji Pollard M.D. on 10/24/2022 at 15:18 Approved by: Kenji Pollard M.D. on 10/24/2022 at 15:29
== END ==
PROVIDERS: Family Provider Internal Medicine; PCP Internal Medicine; Referring Provider Internal Medicine; Visit Provider Internal Medicine
DX: N20.0 Calculus of kidney (principal); D73.9 Disease of spleen, unspecified; K57.90 Diverticulosis of intestine, part unspecified, without perforation or abscess without bleeding; N13.4 Hydroureter; R10.31 Right lower quadrant pain
CPT/HCPCS: 74177

== ENCOUNTER → 2022-11-02 09:45 | Outpatient (CLI) | payer MEDICARE, OTHER, SELFPAY ==
--- NOTE | 2022-11-02 09:47 | DI.RAD.S_ITS ---
PROCEDURE: XR KUB INDICATIONS: kidney stones TECHNIQUE: One view of the abdomen acquired. COMPARISON: [facility], CR, XR KUB, 09/01/2020, 12:18., CT 10/24/2022 FINDINGS: Surgical changes and devices: None. Bowel: Bowel gas pattern is normal. Soft tissues: There is a 1.0 cm radiodensity overlying the left inferior pole, possibly representing area of fear pole calculus seen on recent CT. Additional 0.5 cm radiodensity overlying the superior pole of the left kidney. No definite radiographic evidence of right renal calculi. Visualized solid organ contours appear normal in size. Bones: No suspicious bony lesions. Severe right hip joint degeneration. IMPRESSION: Left superior and inferior renal calculi visualized, similarly sized compared to recent CT 10/24/2022. No definite radiographic evidence of right nephrolithiasis. Approved by: Hamida Dang M.D. on 11/02/2022 at 18:48
== END ==
PROVIDERS: PCP Internal Medicine; Referring Provider Specialist; Visit Provider Specialist
DX: N20.0 Calculus of kidney (principal)
CPT/HCPCS: 74018

== ENCOUNTER 2022-11-23 09:03 | Outpatient (CLI) | payer MEDICARE, OTHER, SELFPAY ==
--- NOTE | 2022-11-23 09:04 | DI.RAD.S_ITS ---
PROCEDURE: PAIN L INTERLAMINAR/CAUDAL INJ INDICATIONS: SPONDYLOSIS COMPARISON: [facility], XR LUMBAR SPINE MIN 4V, 06/17/2021, 8:57. FINDINGS: Fluoroscopic spot filming was performed to verify placement of spinal needles at the L5-S1 level(s), as labeled on the films. Appropriate location(s) of the needle tip(s) was confirmed by injection of iodinated contrast. IMPRESSION: Fluoroscopy for pain management. Dictated by: Heena Hernandez M.D. on 11/23/2022 at 11:18 Approved by: Heena Hernandez M.D. on 11/23/2022 at 11:19
[2022-11-23 09:55] VITALS: BP 159/77; PULSE 93; RESP 18; TEMP 36.4; O2SAT 96
[2022-11-23 10:11] VITALS: BP 175/92; PULSE 86; RESP 13; O2SAT 99
[2022-11-23] MEDS: IOPAMIDOL 15 ML VIAL 3 ML INJ (10:11)
[2022-11-23] MEDS: BUPIVACAINE 0.25% (PF) VIAL 2 ML INJ (10:12)
[2022-11-23] MEDS: BETAMETHASONE 30 MG/5 ML MDV 6 MG INJ (10:12)
[2022-11-23] MEDS: DEXAMETHASONE 10 MG/ML VIAL INJ (10:12)
[2022-11-23 10:16] VITALS: BP 159/90; PULSE 81; RESP 11; O2SAT 99
[2022-11-23 10:21] VITALS: BP 152/74; PULSE 74; RESP 17; O2SAT 98
[2022-11-23 10:23] VITALS: BP 155/87; PULSE 75; RESP 13; O2SAT 97
[2022-11-23 10:25] VITALS: BP 164/77; PULSE 83; RESP 20; O2SAT 97
--- NOTE | 2022-11-23 10:28 | PM.PROC.IR.1 ---
Date/Time/Diagnoses Date of procedure: 11/23/22 Time of procedure: 10:28 Pre-procedure diagnosis: 1. HNP WITH RADICULAR FEATURES, 2. MULTILEVEL CENTRAL STENOSIS, Post-procedure diagnosis: same Procedure Notes Procedure: 1. FLUOROSCOPICALLY GUIDED CONTRAST CONTROLLED INTERLAMINAR EPIDURAL STEROID INJECTION - L5/S1 Indications: Aubrie is referred by Dr. Perry for treatment of Bilateral Foraminal Stenosis L>R LE symptoms. Physician: Shawn Jay Total Fluoroscopy time (seconds): 20 Total sedation minutes: 0 Complications: none Procedure in detail & Post-procedure care: FINDINGS Multilevel Central Spinal Stenosis with Nerve Root Compression DESCRIPTION OF PROCEDURE Fluoroscopically guided, contrast-controlled L5/S1 translaminar epidural steroid injection. Following review of allergy and review of potential side effects and complications, including, but not necessarily limited to, infection, allergic reaction, local tissue breakdown, temporary as well as permanent nerve injury, paralysis, stroke and possible , the patient indicated that the patient understood and agreed to proceed. An informed consent document was signed by the patient, witnessed by a nurse, and placed in the patient's chart. Additionally, other treatment options including modalities, medications, and physical therapy were reviewed with the patient. After review of previous anaesthesic history and IV conscious sedation the patient was deemed safe to proceed with today?s procedure with IV conscious sedation as ASA class II designation. Safety time-out was performed to confirm patient ID, procedure to be performed and site of procedure. IV sedation was deemed unnecessary and thus not administered by the RN after DO order, titrated to patient comfort during the course of the procedure while the patient remained responsive to all verbal commands. In the prone position, following sterile prep and drape of the lumbar region, the L5/S1 translaminar space was identified fluoroscopically. The skin was anesthetized via a 25-gauge, 1.5-inch needle with 1% lidocaine solution. At this point, a 22-gauge short bevel spinal needle was atraumatically introduced and advanced under fluoroscopic guidance into the region of the L5/S1 translaminar space. Depth was confirmed on lateral view. Radiological data, including multiple fluoroscopic views of the lumbar spine, reveal a spinal needle at the L5/S1 translaminar space. Lateral views then show placement of the needle in the epidural space. Subsequent views show contrast material flowing superiorly and inferiorly in the epidural space. No vascular or intrathecal uptake is observed. At this point, using loss of resistance technique with saline and air, the epidural space was entered. This was confirmed following negative aspiration with injection of approximately 1.5cc of Isovue 200, showing excellent epidural flow without vascular or intrathecal uptake. At this point, 1 cc of 1% lidocaine solution combined with 2cc or 10mg of dexamethasone and 6mg of betamethasone was injected without incident. The patent tolerated the procedure without signs of symptoms of complications prior to transfer to the recovery area for further monitoring. The patient was then transferred to the recovery area where they were observed for an appropriate period of time after the injection. The patient reported a VAS score of 7 prior to the procedure and a post-procedure VAS of 1. POST OP INSTRUCTIONS The patient was provided a Pain Log to continue to record their response to the target-specific procedure prior to follow-up visit with their referring physician. Additionally, specific post-injection care instructions and a contact number to our office were provided if concerns arise regarding possible complications associated with the procedure are suspected.
== END 2022-11-23 10:36 | disposition home or self-care (01) ==
LOC: RAD 09:04
PROVIDERS: PCP Internal Medicine; Referring Provider Physical Medicine & Rehabilitation; Visit Provider Physical Medicine & Rehabilitation
DX: M51.17 Intervertebral disc disorders with radiculopathy, lumbosacral region (principal); M48.07 Spinal stenosis, lumbosacral region
CPT/HCPCS: 62323; 99152; J0702; J1100; J3490

== ENCOUNTER → 2023-01-17 14:28 | Outpatient (CLI) | payer MEDICARE, OTHER, SELFPAY ==
--- NOTE | 2023-01-17 14:38 | DI.RAD.S_ITS ---
PROCEDURE: XR HIP W PEL IF DONE RT 2V INDICATIONS: RIGHT HIP PAIN TECHNIQUE: 2 views of the hip were acquired. COMPARISON: [facility], CR, [id number] W PEL IF PERFORMED, 01/05/2016, 13:41. FINDINGS: Bones: Bilateral hip joint space narrowing with small marginal osteophytes. Femoral heads have an appropriate contour without remodeling. Degenerative changes noted in the lower lumbar spine Soft tissues: No suspicious soft tissue calcifications or masses. IMPRESSION: Bilateral moderate to severe hip osteoarthritis without remodeling Approved by: Laurent Greenfield M.D. on 01/17/2023 at 18:10
== END ==
PROVIDERS: PCP Internal Medicine; Referring Provider Internal Medicine; Visit Provider Internal Medicine
DX: M25.551 Pain in right hip (principal); M16.0 Bilateral primary osteoarthritis of hip
CPT/HCPCS: 73502

== ENCOUNTER → 2023-02-11 12:09 | Outpatient (CLI) | payer MEDICARE, OTHER, SELFPAY | PROVIDERS: PCP Internal Medicine; Visit Provider Physician Assistant | DX: R10.9 Unspecified abdominal pain (principal) | CPT/HCPCS: 87086 ==

== ENCOUNTER 2023-02-13 15:18 | Emergency (ER) | payer MEDICARE, OTHER, SELFPAY ==
[2023-02-13] VITALS (10 sets, daily range): BP systolic 160–182; BP diastolic 81–113; PULSE 73–83; RESP 18–46; TEMP 37.2; O2SAT 92–98; BMI 26.3
--- NOTE | 2023-02-13 15:28 | DI.RAD.S_ITS ---
PROCEDURE: XR CHEST 1V INDICATIONS: chest pain TECHNIQUE: One view of the chest was acquired. COMPARISON: None. FINDINGS: Surgical changes and devices: None. Lungs and pleura: Lungs are clear. No pleural effusions or pneumothorax. Mediastinum: Mediastinal contours appear normal. Heart size is normal. Bones and chest wall: No suspicious bony lesions. Overlying soft tissues appear unremarkable. IMPRESSION: No acute cardiopulmonary abnormality is seen. Dictated by: Radha Starks MD, PhD on 02/13/2023 at 15:58 Approved by: Radha Starks MD, PhD on 02/13/2023 at 15:58
[2023-02-13 15:48] LABS: Add Manual Diff / Slide Review NO; Basophils Absolute Auto 100 /uL (0-100); Basophils Percent Auto 0.9 % (0-2); Eosinophils Absolute Auto 500 /uL (0-450); Eosinophils Percent Auto 4.6 % (2-4); Hematocrit 35.4 % (36-46); Hemoglobin 12.2 g/dL (12.0-16.0); Lymphocytes Absolute Auto 4200 /uL (1100-4500); Lymphocytes Percent Auto 41.6 % (25-40); Mean Corpuscular HGB Conc 34.5 % (30-36); Mean Corpuscular Hemoglobin 30.5 PG (26-34); Mean Corpuscular Volume 88.4 fL (80-100); Monocytes Absolute Auto 1000 /uL (0-900); Monocytes Percent Auto 9.7 % (3-14); Neutrophils Absolute Auto 4400 /uL (1500-7000); Neutrophils Percent Auto 43.2 % (50-75); Platelet Count 260 X10^3/uL (150-400); Red Blood Cell Count 4.01 X10^6/uL (4.0-5.2); Red Cell Distribution Width 13.8 % (11.6-14.8); White Blood Cell Count 10.2 X10^3/uL (4.5-11.0)
[2023-02-13 15:55] LABS: Prothrombin Time 11.5 SECONDS (9.4-12.5)
[2023-02-13 15:58] LABS: PTT Partial Thromboplastin Tim 25 SECONDS (25.1-36.5)
[2023-02-13 16:01] LABS: Alanine Aminotransferase 21 IU/L (<35); Albumin 3.9 g/dL (3.5-5.0); Albumin Globulin Ratio 1.3 (1.0-2.8); Alkaline Phosphatase 68 U/L (38-126); Aspartate Aminotransferase 25 IU/L (14-36); Bilirubin Total 0.6 mg/dL (0.2-1.3); Blood Urea Nitrogen 17 mg/dL (7-17); Calcium 9.7 mg/dL (8.4-10.2); Carbon Dioxide 26 mmol/L (22-32); Chloride 103 mmol/L (98-107); Creatine Kinase 35 U/L (30-135); Estimated Glomerular Filt Rate > 60 mL/min (>60); Globulin 2.9 g/dL (1.7-4.1); Glucose 107 mg/dL (80-110); HEMOLYSIS < 15 (0-50); Lipase 32 U/L (23-300); Potassium 4.1 mmol/L (3.4-5.1); Sodium 134 mmol/L (137-145); Total Protein 6.8 g/dL (6.3-8.2)
[2023-02-13 16:12] LABS: Troponin I < 0.012 ng/mL (0.01-0.034)
[2023-02-13] MEDS: ASPIRIN 81 MG CHEW TAB 324 MG PO (17:06)
--- NOTE | 2023-02-13 18:06 | ED.CHESTPAIN ---
HPI - Chest Pain General Chief Complaint: Chest Pain Stated Complaint: heart beating irregular/sent by [facility] Time Seen by Provider: 02/13/23 17:40 Source: patient Mode of arrival: Wheelchair Limitations: no limitations History of Present Illness HPI narrative: 82-year-old female presents for left-sided chest tightness and reported irregular heartbeat at the walk-in clinic. She states that she will occasionally get a tight sensation in her throat/chest and can drink a cup of hot water to make it go away, but this felt different. Tightness is constant, does not radiate, worse when pressing on her chest wall. She went to the walk-in clinic but was told that she had an irregularly regular heartbeat and was referred to the ED. Denies palpitations, history of irregular heartbeat. Patient states that she was painting her bathroom earlier this week and believes she may have strained her chest wall. Denies nausea, vomiting, leg swelling, dyspnea, other complaints at this time. Related Data Home Medications Medication Instructions Recorded Confirmed CALCIUM CARBONATE (#CALCIUM) 1 tab PO DAILY ##0 09/30/11 02/13/23 Fish Oil 1,000 mg PO QDAY #0 tabs 01/05/16 02/13/23 biotin 2,500 mcg capsule 5,000 mcg PO BID ##0 01/05/16 02/13/23 losartan 50 mg tablet 50 mg PO QDAY ##0 01/05/16 02/13/23 bupropion HCl 100 mg tablet,12 hr 100 mg PO DAILY 08/24/17 02/13/23 sustained-release docusate sodium 100 mg capsule 100 mg PO BID 08/24/17 02/13/23 doxazosin 8 mg tablet (Cardura) 8 mg PO DAILY 03/15/20 02/13/23 potassium gluconate 595 mg (99 mg) 595 mg PO DAILY 03/15/20 02/13/23 tablet tobramycin 0.3 %-dexamethasone 0.1 2 drp EYE-BOTH ONCE 03/15/20 02/13/23 % eye drops,suspension clobetasol 0.05 % scalp solution ml topical 09/28/21 02/13/23 pantoprazole 20 mg tablet,delayed 20 mg PO DAILY 09/28/21 02/13/23 release amlodipine 10 mg tablet 10 mg PO DAILY 01/23/22 02/13/23 cyclosporine 0.05 % eye drops in a 1 drp EYE-BOTH DAILY 01/23/22 02/13/23 dropperette (Restasis) acetaminophen 300 mg-codeine 30 mg 1 tab PO BEDTIME 08/21/22 02/13/23 tablet tizanidine 2 mg tablet 2 mg PO BEDTIME 08/21/22 02/13/23 cholecalciferol (vitamin D3) 50 50 mcg PO BID 11/15/22 02/13/23 mcg (2,000 unit) capsule doxycycline monohydrate 50 mg 50 mg PO DAILY 11/20/22 02/13/23 capsule polyethylene glycol 3350 17 17 g PO BID 11/20/22 02/13/23 gram/dose oral powder (Miralax) Previous Rx's Medication Instructions Recorded celecoxib 200 mg capsule (Celebrex) 200 mg PO QDAY #90 caps 12/27/21 estradiol 0.01% (0.1 mg/gram) 1 g vaginal 2XW #42.5 grams 02/01/22 vaginal cream (Estrace) cyclobenzaprine 10 mg tablet 10 mg PO BID #60 tabs 07/14/22 ospemifene 60 mg tablet (Osphena) 60 mg PO DAILY #60 tabs 11/15/22 nitrofurantoin 100 mg PO Q12H 5 days #10 caps 02/11/23 monohydrate/macrocrystals 100 mg capsule (Macrobid) Allergies Allergy/AdvReac Type Severity Reaction Status Date / Time doxycycline Allergy Intermediate Hives Verified 02/13/23 15:09 lisinopril Allergy Intermediate Headache Verified 02/13/23 15:09 pimecrolimus [From Elilloyd] Allergy Intermediate BURN SKIN Verified 02/13/23 15:09 lactose Allergy Mild RASH Verified 02/13/23 15:09 latex Allergy Mild ITCH Verified 02/13/23 15:09 aspirin AdvReac Mild N/V Verified 02/13/23 15:09 hydrocodone AdvReac Mild N/V Verified 02/13/23 15:09 oxycodone AdvReac Mild N/V Verified 02/13/23 15:09 Review of Systems Review of Systems Narrative: Negative except as noted above Patient History Medical History Hip arthritis Left nephrolithiasis History of UTI 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 Carpal tunnel syndrome on both sides History of nephrolithiasis Sacral back pain Hypertension Surgical History H/O oophorectomy No pertinent past surgical history Family History Mother Cancer Social History household members: spouse Smoking Status: Never smoker alcohol intake: current Smoking Status: Never smoker alcohol intake frequency: holidays/special occasions only Substance Use Type: does not use Exam Initial Vital Signs Initial Vital Signs: Vital Signs Temperature 98.9 F 02/13/23 15:22 Pulse Rate 81 02/13/23 15:22 Respiratory Rate 18 02/13/23 15:22 Blood Pressure 169/81 H 02/13/23 15:22 Pulse Oximetry 97 02/13/23 15:22 Oxygen Delivery Method Room Air 02/13/23 15:22 Const: Awake, alert, no acute distress, nontoxic appearing Eyes: PERRL, EOMI, conjunctiva normal ENT: Atraumatic, dentition normal, mucous membranes moist Cardiac: regular rate, regular rhythm RESP: unlabored, clear bilaterally, no wheezing. Chest tenderness along L sternal border to palpation GI: Atraumatic, soft, nontender, nondistended, no rebound, no guarding MSK: Atraumatic, full range of motion, pulses equal Skin: Warm, Dry, intact, no rashes Neuro: AO x3, CN II-XII grossly intact, moves all extremities Psych: affect normal, mood normal, not suicidal, not homicidal Course Course Course Narrative: Well-appearing patient with left sided sternal chest tightness that is reproducible to palpation. EKGs normal sinus rhythm without concerning findings. Patient states that she was told that she had an irregular heartbeat, however she is normal sinus rhythm on the playground monitor without evidence of arrhythmia. Laboratory work is reviewed, no leukocytosis, troponin is undetectable, chest x-ray is negative for acute findings. Heart score 3, low risk, stable for discharge home. Patient counseled on gentle stretching exercises that she may use for her chest pain, recommended Tylenol and Motrin as needed for discomfort. ED return precautions discussed at bedside. Patient and expressed understanding of the plan and are in agreement at this time. All questions answered at the time of discharge. Orders Ordered: ED Orders 02/13/23 15:28 XR chest 1V Stat EKG-12 Lead Stat 02/13/23 15:35 Complete Blood Count AUTO DIFF Stat Comprehensive Metabolic Panel Stat Lipase Stat Magnesium Stat PTT Partial Thromboplastin Roman Stat Prothrombin Time INR Stat Troponin & CK Cardiac Panel Stat Discontinued Medications Aspirin (Aspirin 81 Mg Chew Tab) 324 mg PO NOW ONE Stop: 02/13/23 15:29 Last Admin: 02/13/23 17:06 Dose: 324 mg Documented By: SB Vital Signs Vital signs: Vital Signs - 8 hr 02/13/23 15:22 02/13/23 16:24 02/13/23 16:26 Temperature 98.9 F Pulse Rate 81 83 Respiratory Rate 18 Blood Pressure 169/81 H 182/100 H Pulse Oximetry 97 98 Oxygen Delivery Method Room Air 02/13/23 16:26 02/13/23 16:30 02/13/23 16:30 Temperature Pulse Rate 74 74 Respiratory Rate Blood Pressure 163/94 H Pulse Oximetry 93 94 Oxygen Delivery Method 02/13/23 17:00 02/13/23 17:00 02/13/23 17:03 Temperature Pulse Rate 73 Respiratory Rate 46 H Blood Pressure 174/113 H Pulse Oximetry 93 Oxygen Delivery Method 02/13/23 17:06 02/13/23 17:06 02/13/23 17:30 Temperature Pulse Rate 73 Respiratory Rate Blood Pressure 169/86 H 180/87 H Pulse Oximetry 92 Oxygen Delivery Method Room Air 02/13/23 17:56 02/13/23 17:57 Temperature Pulse Rate 83 Respiratory Rate 24 Blood Pressure 160/109 H Pulse Oximetry 94 Oxygen Delivery Method Room Air MDM - Chest Pain Differential Diagnosis Differential diagnosis: Likely atypical chest pain, costochondritis and chest pain Lab Data 02/13/23 15:35 02/13/23 15:35 Labs: Lab Results 02/13/23 Range/Units 15:35 WBC 10.2 (4.5-11.0) X10^3/uL RBC 4.01 (4.0-5.2) X10^6/uL Hgb 12.2 (12.0-16.0) g/dL Hct 35.4 L (36-46) % MCV 88.4 (80-100) fL MCH 30.5 (26-34) PG MCHC 34.5 (30-36) % RDW 13.8 (11.6-14.8) % Plt Count 260 (150-400) X10^3/uL Neut % (Auto) 43.2 L (50-75) % Lymph % (Auto) 41.6 H (25-40) % Carroll % (Auto) 9.7 (3-14) % Eos % (Auto) 4.6 H (2-4) % Baso % (Auto) 0.9 (0-2) % Neut # (Auto) 4400 (4756-2676) /uL Lymph # (Auto) 4200 (7671-8197) /uL Carroll # (Auto) 1000 H (0-900) /uL Eos # (Auto) 500 H (0-450) /uL Baso # (Auto) 100 (0-100) /uL PT 11.5 (9.4-12.5) SECONDS INR 1.0 (0.9-1.3) APTT 25 L (25.1-36.5) SECONDS Sodium 134 L (137-145) mmol/L Potassium 4.1 (3.4-5.1) mmol/L Chloride 103 (98-107) mmol/L Carbon Dioxide 26 (22-32) mmol/L BUN 17 (7-17) mg/dL Creatinine 0.81 (0.52-1.04) mg/dL Estimated GFR > 60 (>60) mL/min BUN/Creatinine Ratio 21.0 (6-22) Glucose 107 (80-110) mg/dL Calcium 9.7 (8.4-10.2) mg/dL Magnesium 2.0 (1.6-2.3) mg/dL Total Bilirubin 0.6 (0.2-1.3) mg/dL AST 25 (14-36) IU/L ALT 21 (<35) IU/L Alkaline Phosphatase 68 (38-126) U/L Total Creatine Kinase 35 (30-135) U/L Troponin I < 0.012 (0.01-0.034) ng/mL Total Protein 6.8 (6.3-8.2) g/dL Albumin 3.9 (3.5-5.0) g/dL Globulin 2.9 (1.7-4.1) g/dL Albumin/Globulin Ratio 1.3 (1.0-2.8) Lipase 32 (23-300) U/L ECG Data Interpretation: Normal sinus rhythm, rate 81 beats per minute. Normal axis, no ST T wave changes, no STEMI Discharge Plan Departure Patient Disposition: Home Clinical Impression: Chest pain Qualifiers: Chest pain type: other chest pain Qualified Code(s): R07.89 - Other chest pain Instructions: DI for Atypical Chest Pain Activity Restrictions/Additional Instructions: You were seen today for chest pain. Your EKG, laboratory work, chest x-ray are all normal. Your pain seems to be reproducible along your sternum, this could indicate strain or stress along your chest wall. I recommend gentle stretching exercises, taking Tylenol and Motrin as needed for pain or discomfort. Follow up as needed with your primary care physician. Prescriptions: No Action nitrofurantoin monohyd/m-cryst [Macrobid] 100 mg capsule 100 mg PO Q12H 5 Days Qty: 10 0RF Rx Instructions: must administer with a meal/food CALCIUM CARBONATE (#CALCIUM) 1 tab PO DAILY Qty: 0 biotin 2,500 MCG capsule 5,000 mcg PO BID Qty: 0 Fish Oil 1,000 mg PO QDAY Qty: 0 losartan 50 MG tablet 50 mg PO QDAY Qty: 0 celecoxib [Celebrex] 200 mg capsule 200 mg PO QDAY Qty: 90 1RF cyclobenzaprine 10 mg tablet 10 mg PO BID Qty: 60 3RF Rx Instructions: HAVE PT CALL THE OFFICE AFTER SHE TRIES TWICE A DAY. CAN BE SEDATING bupropion HCl 100 mg tablet extended release 12 hr 100 mg PO DAILY docusate sodium 100 mg capsule 100 mg PO BID cyclosporine [Restasis] 0.05 % dropperette 1 drp EYE-BOTH DAILY amlodipine 10 mg tablet 10 mg PO DAILY acetaminophen-codeine 300-30 mg tablet 1 tab PO BEDTIME tizanidine 2 mg tablet 2 mg PO BEDTIME doxazosin [Cardura] 8 mg tablet 8 mg PO DAILY tobramycin-dexamethasone 0.3-0.1 % drops,suspension 2 drp EYE-BOTH ONCE potassium gluconate 595 mg (99 mg) tablet 595 mg PO DAILY cholecalciferol (vitamin D3) 50 mcg (2,000 unit) capsule 50 mcg PO BID clobetasol 0.05 % solution topical pantoprazole 20 mg tablet,delayed release (DR/EC) 20 mg PO DAILY doxycycline monohydrate 50 mg capsule 50 mg PO DAILY polyethylene glycol 3350 [Miralax] 17 gram/dose powder 17 g PO BID Osphena 60 mg tablet 60 mg PO DAILY Qty: 60 3RF Rx Instructions: must administer with food, preferably a high-fat meal estradiol [Estrace] 0.01 % (0.1 mg/gram) cream 1 g vaginal 2XW Qty: 42.5 5RF Rx Instructions: Insert 1 g intravaginally at bedtime times 12 days, then insert 1 g intravaginally twice weekly at bedtime as directed. Referrals: Betty Perry MD [Primary Care Provider] - Stand Alone Forms: Patient Portal/API
== END 2023-02-13 18:15 | disposition home or self-care (01) ==
PROVIDERS: Emergency Medicine; Emergency Provider Emergency Medicine; PCP Internal Medicine
DX: R07.89 Other chest pain (principal)
CPT/HCPCS: 71045; 80053; 82550; 83690; 83735; 84484; 85025; 85610; 85730; 93005; 99283; 99284

== ENCOUNTER 2023-04-24 10:06 | Outpatient (CLI) | payer MEDICARE, OTHER, SELFPAY ==
[2023-04-24] VITALS (9 sets, daily range): BP systolic 137–156; BP diastolic 69–90; PULSE 68–85; RESP 8–20; TEMP 37; O2SAT 96–99
--- NOTE | 2023-04-24 10:45 | DI.RAD.S_ITS ---
PROCEDURE: PAIN SI JOINT INJECTION KENZIE INDICATIONS: SI JOINT DYSFUNCTION COMPARISON: [facility], XA, PAIN SI JOINT INJECTION KENZIE, 09/21/2022, 9:19. FINDINGS: Fluoroscopic spot filming was performed to verify placement of spinal needles at the bilateral sacroiliac joints, as labeled on the films. Appropriate locations of the needle tips were confirmed by injection of iodinated contrast. IMPRESSION: Intraprocedural examination demonstrates appropriate needle positioning. Approved by: Latrell Reid M.D. on 04/24/2023 at 15:11
[2023-04-24] MEDS: MIDAZOLAM 2 MG/2 ML VIAL 1 MG IV (11:06)
[2023-04-24] MEDS: BETAMETHASONE 30 MG/5 ML MDV 12 MG INJ (11:10)
[2023-04-24] MEDS: iopamidoL 15 ML VIAL 3 ML INJ (11:10)
[2023-04-24] MEDS: BUPIVACAINE 0.5% (PF) 10 ML VIAL 5 ML INJ (11:10)
[2023-04-24] MEDS: LIDOCAINE 1% 20 ML 5 ML INJ (11:11)
--- NOTE | 2023-04-24 11:25 | PM.PROC.IR.1 ---
Date/Time/Diagnoses Date of procedure: 04/24/23 Time of procedure: 11:25 Pre-procedure diagnosis: Sacroiliac joint pain/DJD Post-procedure diagnosis: same Procedure Notes Procedure: Fluoroscopic guided contrast controlled bilateral sacroiliac joint injection Indications: Aubrie is referred by Dr. Perry for treatment of bilateral sacroiliac joint DJD Physician: Shawn Jay Total Fluoroscopy time (seconds): 13 Total sedation minutes: 12 Complications: none Procedure in detail & Post-procedure care: Description of procedure Fluoroscopic guided, contrast controlled bilateral sacroiliac joint injection Following review of allergies and review of potential side effects and complications, including, but not necessarily limited to, infection, allergic reaction, local tissue breakdown, temporary as well as permanent nerve injury, paralysis, stroke and possible , the patient indicated that they understood and agreed to proceed. An informed consent was signed by the patient, witnessed by a nurse, and placed in the patient's chart. Additionally, other treatment options including modalities, medications, and physical therapy were reviewed with the patient. After review of previous anaesthesic history and IV conscious sedation the patient was deemed safe to proceed with today?s procedure with IV conscious sedation as ASA class II designation. Safety time-out was performed to confirm patient ID, procedure to be performed and site of procedure. IV sedation was accomplished with a combination of 1mg Versed were administered by the RN after DO order, titrated to patient comfort during the course of the procedure while the patient remained responsive to all verbal commands In the prone position following sterile prep and drape of the pelvic region, the hyper lucency on in the inferior aspect of the sacroiliac joint was identified fluoroscopically the skin was anesthetized be a 25 gauge 1.5 inch needle with approximately 2cc of 1% lidocaine solution. At this point, a 22 gauge 3 in spinal needle was atraumatically introduced and advanced under fluoroscopic guidance into the inferior aspect of the right sacroiliac joint. Following negative aspiration, approximately 0.3cc of [id number]-300 was injected confirming intra-articular placement without vascular uptake. Radiographic data, including multiple fluoroscopic views of the pelvis, reveals a spinal needle in the sacroiliac joint hyper lucent zone. Subsequent view show flow contrast tear superiorly and inferiorly within the joint capsule without vascular intrathecal uptake. At this point a total of 1cc of 0.5% Marcaine was combined with 1cc of 6mg of betamethasone was injected without incident. Attention was then refocused the left sacroiliac joint where the procedure was replicated. The procedure tolerated the procedure well without signs or symptoms of complications prior to transfer to the recovery area continued monitoring without incident. The patient was then transferred to the recovery area with a bur observed for an appropriate time after the injection. The patient reverted a vas score of 7 prior to the procedure and post-procedure vas of 1. Postop instructions The patient was provided with a pain like to continue to record the patient's response to the target specific procedure prior to the patient's follow-up visit with the referring physician. Additionally, specific post injection care instructions and a contact number to our office were provided if concerns arise regarding the possible complications associated with procedure are suspected.
--- NOTE | 2023-04-26 14:12 | PC.NURSE ---
Patient contacted by this nurse. She stated that she is feeling pretty sore today, but she's sure she will feel better tomorrow. Patient was encouraged to use ice to the site/s and to call the office at the phone number on the discharge paperwork if it worsened or if she had any other questions or concerns. Patient stated understanding.
== END 2023-04-24 11:45 | disposition home or self-care (01) ==
LOC: RAD 10:07
PROVIDERS: PCP Internal Medicine; Referring Provider Physical Medicine & Rehabilitation; Visit Provider Physical Medicine & Rehabilitation
DX: M53.3 Sacrococcygeal disorders, not elsewhere classified (principal); M46.1 Sacroiliitis, not elsewhere classified
CPT/HCPCS: 27096; 77002; 99152; J0702; J2250

== ENCOUNTER → 2023-05-28 12:26 | Outpatient (CLI) | payer MEDICARE, OTHER, SELFPAY ==
--- NOTE | 2023-05-28 12:27 | DI.MG.S_ITS ---
BILATERAL DIGITAL SCREENING MAMMOGRAM 3D/2D WITH CAD: 05/28/2023 CLINICAL: Routine screening. Family history of breast cancer. Comparison is made to exams dated: 05/24/2022 mammogram, 05/23/2021 mammogram, 05/21/2020 mammogram, and 05/21/2019 mammogram - [facility]. There are scattered areas of fibroglandular density in both breasts (category b / 25%-50% glandular tissue). Current study was also evaluated with a Computer Aided Detection (CAD) system. There are benign calcifications in both breasts. No significant masses, calcifications, or other findings are seen in either breast. There has been no significant interval change. IMPRESSION: BENIGN There is no mammographic evidence of malignancy. A 1 year screening mammogram is recommended. This exam was interpreted at Station ID: [id number]. NOTE: For mammograms, a report in lay terms will be sent to the patient. Approximately 15% of breast malignancies will not be visualized mammographically. In the management of a palpable breast mass, a negative mammogram must not discourage biopsy of a clinically suspicious lesion. Electronically Signed By: Huber jaime/penrad:05/28/2023 16:41:40 letter sent: Normal Exam ACR BI-RADS Category 2: Benign Finding(s) [id number]
== END ==
LOC: MAMMO 12:26
PROVIDERS: PCP Internal Medicine; Referring Provider Internal Medicine; Visit Provider Internal Medicine
DX: Z12.31 Encounter for screening mammogram for malignant neoplasm of breast (principal); Z80.3 Family history of malignant neoplasm of breast; R92.323 Mammographic fibroglandular density, bilateral breasts
CPT/HCPCS: 77063; 77067

== ENCOUNTER 2023-06-05 10:09 | Emergency (ER) | payer MEDICARE, OTHER, SELFPAY ==
[2023-06-05] VITALS (13 sets, daily range): BP systolic 139–201; BP diastolic 67–107; PULSE 69–97; RESP 12–38; TEMP 36.7; O2SAT 95–99
--- NOTE | 2023-06-05 10:17 | DI.RAD.S_ITS ---
PROCEDURE: XR CHEST 1V INDICATIONS: chest pain TECHNIQUE: One view of the chest was acquired. COMPARISON: [facility], CR, XR CHEST 1V, 02/13/2023, 15:45. FINDINGS: Surgical changes and devices: None. Lungs and pleura: Lungs are clear. No pleural effusions or pneumothorax. Mediastinum: Mediastinal contours appear normal. Heart size is normal. Bones and chest wall: No suspicious bony lesions. Overlying soft tissues appear unremarkable. IMPRESSION: No acute pulmonary process. Dictated by: Sally Ch M.D. on 06/05/2023 at 10:44 Approved by: Sally Ch M.D. on 06/05/2023 at 10:45
[2023-06-05 10:28] LABS: Add Manual Diff / Slide Review NO; Basophils Absolute Auto 100 /uL (0-100); Basophils Percent Auto 1.3 % (0-2); Eosinophils Absolute Auto 100 /uL (0-450); Eosinophils Percent Auto 1.3 % (2-4); Hematocrit 37.3 % (36-46); Hemoglobin 12.6 g/dL (12.0-16.0); Lymphocytes Absolute Auto 4800 /uL (1100-4500); Lymphocytes Percent Auto 50.2 % (25-40); Mean Corpuscular HGB Conc 33.8 % (30-36); Mean Corpuscular Hemoglobin 30.5 PG (26-34); Mean Corpuscular Volume 90.5 fL (80-100); Monocytes Absolute Auto 800 /uL (0-900); Monocytes Percent Auto 8.6 % (3-14); Neutrophils Absolute Auto 3700 /uL (1500-7000); Neutrophils Percent Auto 38.6 % (50-75); Platelet Count 242 X10^3/uL (150-400); Red Blood Cell Count 4.13 X10^6/uL (4.0-5.2); Red Cell Distribution Width 14.6 % (11.6-14.8); White Blood Cell Count 9.6 X10^3/uL (4.5-11.0)
[2023-06-05 10:34] LABS: INR 0.9 (0.9-1.3); Prothrombin Time 10.8 SECONDS (9.4-12.5)
[2023-06-05 10:42] LABS: PTT Partial Thromboplastin Tim 28 SECONDS (25.1-36.5)
[2023-06-05 10:43] LABS: Alanine Aminotransferase 21 IU/L (<35); Albumin 4.1 g/dL (3.5-5.0); Albumin Globulin Ratio 1.4 (1.0-2.8); Alkaline Phosphatase 66 U/L (38-126); Aspartate Aminotransferase 21 IU/L (14-36); BUN Creatinine Ratio 22.8 (6-22); Bilirubin Total 0.5 mg/dL (0.2-1.3); Blood Urea Nitrogen 21 mg/dL (7-17); Calcium 10.7 mg/dL (8.4-10.2); Carbon Dioxide 30 mmol/L (22-32); Chloride 106 mmol/L (98-107); Creatine Kinase 46 U/L (30-135); Estimated Glomerular Filt Rate > 60 mL/min (>60); Globulin 2.9 g/dL (1.7-4.1); Glucose 113 mg/dL (80-110); HEMOLYSIS < 15 (0-50); Lipase 36 U/L (23-300); Magnesium 2.2 mg/dL (1.6-2.3); Sodium 138 mmol/L (137-145)
[2023-06-05 10:54] LABS: Troponin I < 0.012 ng/mL (0.01-0.034)
--- NOTE | 2023-06-05 11:32 | ED_ITS ---
HPI - Chest Pain General Chief Complaint: Chest Pain Stated Complaint: per pt heart palpitations, tightness Time Seen by Provider: 06/05/23 10:35 Source: patient and family Mode of arrival: Ambulatory Limitations: no limitations History of Present Illness HPI narrative: 83-year-old woman with a history of reflux, hypertension, anxiety and depression, presents with 3 days of chest tightness and pain with taking a deep breath. She reports no infectious etiology type complaints such as cough, fever, nausea, vomiting, abdominal pain. She notes that her left anterior ribs are tender to palpation in this feels very musculoskeletal to her. Related Data Home Medications Medication Instructions Recorded Confirmed CALCIUM CARBONATE (#CALCIUM) 1 tab PO DAILY ##0 09/30/11 05/23/23 Fish Oil 1,000 mg PO QDAY #0 tabs 01/05/16 05/23/23 biotin 2,500 mcg capsule 5,000 mcg PO BID ##0 01/05/16 05/23/23 losartan 50 mg tablet 50 mg PO QDAY ##0 01/05/16 05/23/23 bupropion HCl 100 mg tablet,12 hr 100 mg PO DAILY 08/24/17 05/23/23 sustained-release docusate sodium 100 mg capsule 100 mg PO BID 08/24/17 05/23/23 doxazosin 8 mg tablet (Cardura) 8 mg PO DAILY 03/15/20 05/23/23 potassium gluconate 595 mg (99 mg) 595 mg PO DAILY 03/15/20 05/23/23 tablet tobramycin 0.3 %-dexamethasone 0.1 2 drp EYE-BOTH ONCE 03/15/20 05/23/23 % eye drops,suspension clobetasol 0.05 % scalp solution ml topical 09/28/21 05/23/23 pantoprazole 20 mg tablet,delayed 20 mg PO DAILY 09/28/21 05/23/23 release amlodipine 10 mg tablet 10 mg PO DAILY 01/23/22 05/23/23 cyclosporine 0.05 % eye drops in a 1 drp EYE-BOTH DAILY 01/23/22 05/23/23 dropperette (Restasis) acetaminophen 300 mg-codeine 30 mg 1 tab PO BEDTIME 08/21/22 05/23/23 tablet tizanidine 2 mg tablet 2 mg PO BEDTIME 08/21/22 05/23/23 cholecalciferol (vitamin D3) 50 50 mcg PO BID 11/15/22 05/23/23 mcg (2,000 unit) capsule doxycycline monohydrate 50 mg 50 mg PO DAILY 11/20/22 05/23/23 capsule polyethylene glycol 3350 17 17 g PO BID 11/20/22 05/23/23 gram/dose oral powder (Miralax) tacrolimus 0.1 % topical ointment 1 applic topical DAILY 04/16/23 05/23/23 Previous Rx's Medication Instructions Recorded estradiol 0.01% (0.1 mg/gram) 1 g vaginal 2XW #42.5 grams 02/01/22 vaginal cream (Estrace) cyclobenzaprine 10 mg tablet 10 mg PO BID #60 tabs 07/14/22 ospemifene 60 mg tablet (Osphena) 60 mg PO DAILY #60 tabs 11/15/22 celecoxib 200 mg capsule (Celebrex) 200 mg PO QDAY #90 caps 05/16/23 Allergies Allergy/AdvReac Type Severity Reaction Status Date / Time doxycycline Allergy Intermediate Hives Verified 05/23/23 10:25 lisinopril Allergy Intermediate Headache Verified 05/23/23 10:25 pimecrolimus [From Elidel] Allergy Intermediate BURN SKIN Verified 05/23/23 10:25 lactose Allergy Mild RASH Verified 05/23/23 10:25 latex Allergy Mild ITCH Verified 05/23/23 10:25 aspirin AdvReac Mild N/V Verified 05/23/23 10:25 hydrocodone AdvReac Mild N/V Verified 05/23/23 10:25 oxycodone AdvReac Mild N/V Verified 05/23/23 10:25 Review of Systems Review of Systems Narrative: Pertinent positive and negative findings as per HPI Patient History Medical History Hip arthritis Left nephrolithiasis History of UTI 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 Carpal tunnel syndrome on both sides History of nephrolithiasis Sacral back pain Hypertension Surgical History H/O oophorectomy No pertinent past surgical history Family History Mother Cancer Social History household members: spouse Smoking Status: Never smoker alcohol intake: current Smoking Status: Never smoker alcohol intake frequency: holidays/special occasions only Substance Use Type: does not use Exam Initial Vital Signs Initial Vital Signs: Vital Signs Pulse Rate 97 H 06/05/23 10:15 Respiratory Rate 12 06/05/23 10:15 Pulse Oximetry 99 06/05/23 10:15 Oxygen Delivery Method Room Air 06/05/23 10:15 General: Healthy appearing, in no acute distress. Able to give a complete and coherent history. Well-nourished well-developed HEENT: Moist mucous membranes, normal sclera with reactive pupils, Neck: No cervical adenopathy Respiratory: Lungs are clear to auscultation, no wheezing no rales no rhonchi. Full and symmetrical air movement Chest: She is specific tenderness all along the left anterior 12th rib and much of the costochondral margins more on the left than the right. Palpation along these areas in the rib do reproduce her pain Cardiac: Regular rate and rhythm no murmurs no bruits Abdomen: Soft, nontender, good bowel tones, no flank pain Skin: Warm and dry, no rashes Neurologic: Grossly neurologically intact with no obvious asymmetries or abnormalities Extremities: No trauma, well perfused Psych: Cooperative, appropriate insight and affect Course Orders Ordered: ED Orders 06/05/23 10:17 XR chest 1V Stat EKG-12 Lead Stat 06/05/23 10:20 Complete Blood Count AUTO DIFF Stat Comprehensive Metabolic Panel Stat Lipase Stat Magnesium Stat PTT Partial Thromboplastin Roman Stat Prothrombin Time INR Stat Troponin & CK Cardiac Panel Stat 06/05/23 12:50 XR ribs LT 2V Stat Discontinued Medications Aspirin (Aspirin 81 Mg Chew Tab) 324 mg PO NOW ONE Stop: 06/05/23 10:17 Last Admin: 06/05/23 10:17 Dose: Not Given Documented By: RAVEN Ketorolac Tromethamine (Ketorolac 30 Mg/Ml Vial) 15 mg IV NOW ONE Stop: 06/05/23 12:51 Last Admin: 06/05/23 13:07 Dose: 15 mg Documented By: RAVEN Vital Signs Vital signs: Vital Signs - 8 hr 06/05/23 10:15 06/05/23 10:16 06/05/23 10:16 Temperature Pulse Rate 97 H 91 H Respiratory Rate 12 13 Blood Pressure 184/95 H Pulse Oximetry 99 97 Oxygen Delivery Method Room Air 06/05/23 10:17 06/05/23 10:30 06/05/23 10:30 Temperature 98.1 F Pulse Rate 94 H 91 H Respiratory Rate 19 25 H Blood Pressure 184/95 H 201/107 H Pulse Oximetry 96 97 Oxygen Delivery Method Room Air 06/05/23 11:00 06/05/23 11:01 06/05/23 11:01 Temperature Pulse Rate 81 75 Respiratory Rate 22 20 Blood Pressure 152/77 H Pulse Oximetry 96 Oxygen Delivery Method Room Air 06/05/23 11:30 06/05/23 12:00 06/05/23 12:30 Temperature Pulse Rate 75 72 69 Respiratory Rate 20 20 38 H Blood Pressure Pulse Oximetry 95 95 95 Oxygen Delivery Method Room Air 06/05/23 12:47 06/05/23 12:47 06/05/23 13:00 Temperature Pulse Rate 75 Respiratory Rate 34 H Blood Pressure 160/79 H 147/67 H Pulse Oximetry 95 Oxygen Delivery Method 06/05/23 13:00 Temperature Pulse Rate 86 Respiratory Rate 20 Blood Pressure Pulse Oximetry 95 Oxygen Delivery Method MDM - Chest Pain Lab Data 06/05/23 10:20 06/05/23 10:20 Labs: Lab Results 06/05/23 Range/Units 10:20 WBC 9.6 (4.5-11.0) X10^3/uL RBC 4.13 (4.0-5.2) X10^6/uL Hgb 12.6 (12.0-16.0) g/dL Hct 37.3 (36-46) % MCV 90.5 (80-100) fL MCH 30.5 (26-34) PG MCHC 33.8 (30-36) % RDW 14.6 (11.6-14.8) % Plt Count 242 (150-400) X10^3/uL Neut % (Auto) 38.6 L (50-75) % Lymph % (Auto) 50.2 H (25-40) % [place] % (Auto) 8.6 (3-14) % Eos % (Auto) 1.3 L (2-4) % Baso % (Auto) 1.3 (0-2) % Neut # (Auto) 3700 (6742-2076) /uL Lymph # (Auto) 4800 H (5122-2678) /uL [place] # (Auto) 800 (0-900) /uL Eos # (Auto) 100 (0-450) /uL Baso # (Auto) 100 (0-100) /uL PT 10.8 (9.4-12.5) SECONDS INR 0.9 (0.9-1.3) APTT 28 (25.1-36.5) SECONDS Sodium 138 (137-145) mmol/L Potassium 4.0 (3.4-5.1) mmol/L Chloride 106 (98-107) mmol/L Carbon Dioxide 30 (22-32) mmol/L BUN 21 H (7-17) mg/dL Creatinine 0.92 (0.52-1.04) mg/dL Estimated GFR > 60 (>60) mL/min BUN/Creatinine Ratio 22.8 H (6-22) Glucose 113 H (80-110) mg/dL Calcium 10.7 H (8.4-10.2) mg/dL Magnesium 2.2 (1.6-2.3) mg/dL Total Bilirubin 0.5 (0.2-1.3) mg/dL AST 21 (14-36) IU/L ALT 21 (<35) IU/L Alkaline Phosphatase 66 (38-126) U/L Total Creatine Kinase 46 (30-135) U/L Troponin I < 0.012 (0.01-0.034) ng/mL Total Protein 7.0 (6.3-8.2) g/dL Albumin 4.1 (3.5-5.0) g/dL Globulin 2.9 (1.7-4.1) g/dL Albumin/Globulin Ratio 1.4 (1.0-2.8) Lipase 36 (23-300) U/L Urine Dip Bedside Urine Glucose Negative Bedside Urine Bilirubin - Negative Bedside Urine Ketone - Negative Urine Specific [place] 1.010 Bedside Urine Occult Blood - Negative Bedside Urine pH 7.0 Bedside Urine Protein - Negative Bedside Urine Urobilinogen - Negative Bedside Urine Nitrite - Negative Bedside Urine Leukocytes - Negative Esterase MDM Narrative Medical decision making narrative: CC: Dyspnea for 3 days Complicating co-morbidities: No known cardiac or pulmonary disease, hypertension, anxiety osteoarthritis for which she takes Celebrex Data collected from: patient, her son who is a transportation design engineer, Medical records reviewed: ER note from February 13 2023 with similar chest pain complaints reviewed Differential considered: Acute coronary syndrome, reflux, esophageal spasm, pneumothorax, metastatic disease, left lower lobe pneumonia Exam documented above, pertinent findings include: Vigorous and healthy appearing woman, tender to palpation along the left anterior 12th rib and costochondral margins completely reproduces the pain of which she complains Lab Test results independently reviewed as above. Pertinent findings: CBC is unremarkable with normal hemoglobin hematocrit Chemistries are reassuring with normal renal function. Calcium is minimally elevated at 10.7. Troponin is undetectable Lipase is within normal limits Independently reviewed EKG: Sinus rhythm at a rate of 84. Prolonged IN interval, frequent PACs no ischemic changes. Imaging studies independently reviewed: Chest x-ray shows no acute processes Chest films focusing on the left anterior 12th rib are ordered. No subtle findings, pathologic fractures or other concerns or appreciated. She does have significant shoulder osteoarthritis Treatments: IV Toradol Discussion: 83-year-old woman with recurrent episode of left-sided chest pain completely reproduced with palpation of the left anterior 12th rib and left costal margins. Workup is unremarkable. She did not find the Toradol was very effective. No evidence of infection, acute coronary syndrome, pulmonary embolism. On further questioning with her significant osteoarthritis in multiple joints I suspect that this is an osteoarthritis component of her costochondral joints. She notes that she did try heating pad to her sternum the other day and that did seem to help significantly. Reassurance is given, she is already on Celebrex daily I encouraged her to continue this. Questions were answered and she is safe for discharge Discharge Plan Departure Patient Disposition: Home Clinical Impression: Costochondral pain Instructions: DI for Costochondritis Activity Restrictions/Additional Instructions: Thank you for coming in today I am not finding any life-threatening diagnoses to explain your chest pain. Specifically there is no pneumonia, fractures, tumors, masses, evidence of heart attack or heart attack like syndrome. You are very tender along your breastbone and specific x-rays focusing on your left lower rib do not show dramatic abnormalities. I suspect that the pain that you are experiencing is arthritis in the costochondral joints. I have given you an explanation for costochondritis which is inflammation of the joints and typically goes away. Unfortunately, I suspect that this is more than simple inflammation and maybe something that you need to deal with for a number of years. You had mentioned that he would seemed to help, I would recommend looking up infrared heating pads, these can be very effective if you are interested in making the investment. If you find that you are getting worse or develop any new symptoms, please feel free to return to the emergency department for further evaluation. Prescriptions: No Action CALCIUM CARBONATE (#CALCIUM) 1 tab PO DAILY Qty: 0 biotin 2,500 MCG capsule 5,000 mcg PO BID Qty: 0 Fish Oil 1,000 mg PO QDAY Qty: 0 losartan 50 MG tablet 50 mg PO QDAY Qty: 0 cyclobenzaprine 10 mg tablet 10 mg PO BID Qty: 60 3RF Rx Instructions: HAVE PT CALL THE OFFICE AFTER SHE TRIES TWICE A DAY. CAN BE SEDATING celecoxib [Celebrex] 200 mg capsule 200 mg PO QDAY Qty: 90 1RF bupropion HCl 100 mg tablet extended release 12 hr 100 mg PO DAILY docusate sodium 100 mg capsule 100 mg PO BID cyclosporine [Restasis] 0.05 % dropperette 1 drp EYE-BOTH DAILY amlodipine 10 mg tablet 10 mg PO DAILY acetaminophen-codeine 300-30 mg tablet 1 tab PO BEDTIME tizanidine 2 mg tablet 2 mg PO BEDTIME doxazosin [Cardura] 8 mg tablet 8 mg PO DAILY tobramycin-dexamethasone 0.3-0.1 % drops,suspension 2 drp EYE-BOTH ONCE potassium gluconate 595 mg (99 mg) tablet 595 mg PO DAILY cholecalciferol (vitamin D3) 50 mcg (2,000 unit) capsule 50 mcg PO BID clobetasol 0.05 % solution topical pantoprazole 20 mg tablet,delayed release (DR/EC) 20 mg PO DAILY doxycycline monohydrate 50 mg capsule 50 mg PO DAILY polyethylene glycol 3350 [Miralax] 17 gram/dose powder 17 g PO BID tacrolimus 0.1 % ointment 1 applic topical DAILY Osphena 60 mg tablet 60 mg PO DAILY Qty: 60 3RF Rx Instructions: must administer with food, preferably a high-fat meal estradiol [Estrace] 0.01 % (0.1 mg/gram) cream 1 g vaginal 2XW Qty: 42.5 5RF Rx Instructions: Insert 1 g intravaginally at bedtime times 12 days, then insert 1 g intravaginally twice weekly at bedtime as directed. Referrals: Young,Betty Y, MD [Primary Care Provider] - Stand Alone Forms: Patient Portal/API
--- NOTE | 2023-06-05 12:50 | DI.RAD.S_ITS ---
PROCEDURE: XR RIBS LT 2V INDICATIONS: pain along ant TECHNIQUE: 2 views of the ribs were acquired. COMPARISON: None. FINDINGS: Surgical changes and devices: None. Bones and chest wall: No fractures or dislocations. No suspicious bony lesions. Moderate degenerative changes are present at the acromioclavicular joint and severe degenerative changes are present at the glenohumeral joint. Overlying soft tissues appear unremarkable. Lungs and pleura: The visualized lung appears clear. No pleural effusions or pneumothorax are visible. IMPRESSION: Severe osteoarthritis of the left shoulder. Dictated by: Padmini Wooten M.D. on 06/05/2023 at 13:18 Approved by: Padmini Wooten M.D. on 06/05/2023 at 13:19
[2023-06-05] MEDS: KETOROLAC 30 MG/ML VIAL 15 MG IV (13:07)
== END 2023-06-05 14:45 | disposition home or self-care (01) ==
PROVIDERS: Emergency Provider Emergency Medicine; PCP Internal Medicine
DX: R07.1 Chest pain on breathing (principal)
CPT/HCPCS: 36415; 71045; 71100; 80053; 81003; 82550; 83690; 83735; 84484; 85025; 85610; 85730; 93005; 96374; 99284; J1885

== ENCOUNTER 2023-07-05 09:37 | Outpatient (CLI) | payer MEDICARE, OTHER, SELFPAY ==
[2023-07-05] VITALS (8 sets, daily range): BP systolic 129–159; BP diastolic 65–76; PULSE 70–802; RESP 13–22; O2SAT 94–97
--- NOTE | 2023-07-05 10:15 | DI.RAD.S_ITS ---
PROCEDURE: PAIN L INTERLAMINAR/CAUDAL INJ INDICATIONS: L5/S1 TL KISHAN COMPARISON: [facility], , PAIN L INTERLAMINAR/CAUDAL INJ, 11/23/2022, 10:11. FINDINGS: Fluoroscopic spot filming was performed to verify placement of spinal needles at the L5-S1 level(s), as labeled on the films. Appropriate location(s) of the needle tip(s) was confirmed by injection of iodinated contrast. IMPRESSION: Intra procedural examination demonstrating appropriate positions of the needles. Dictated by: Keon De Leon M.D. on 07/05/2023 at 11:54 Approved by: Keon De Leon M.D. on 07/05/2023 at 11:54
[2023-07-05] MEDS: MIDAZOLAM 2 MG/2 ML VIAL 1 MG IV (11:08)
[2023-07-05] MEDS: iopamidoL 15 ML VIAL 3 ML INJ (11:11)
[2023-07-05] MEDS: BUPIVACAINE 0.25% (PF) VIAL 2 ML INJ (11:11)
[2023-07-05] MEDS: DEXAMETHASONE 10 MG/ML VIAL INJ (11:12)
[2023-07-05] MEDS: BETAMETHASONE 30 MG/5 ML MDV 6 MG INJ (11:12)
--- NOTE | 2023-07-05 11:31 | P.PCN_ITS ---
Date/Time/Diagnoses Date of procedure: 07/05/23 Pre-procedure diagnosis: 1. HNP WITH RADICULAR FEATURES, 2. MULTILEVEL CENTRAL STENOSIS, Post-procedure diagnosis: same Procedure Notes Procedure: 1. FLUOROSCOPICALLY GUIDED CONTRAST CONTROLLED INTERLAMINAR EPIDURAL STEROID INJECTION - L5/S1 Indications: Aubrie is referred by Dr. Perry for treatment of Bilateral Foraminal Stenosis L>R LE symptoms. Physician: Shawn Jay Total Fluoroscopy time (seconds): 10 Total sedation minutes: 12 Complications: none Procedure in detail & Post-procedure care: FINDINGS Multilevel Central Spinal Stenosis with Nerve Root Compression DESCRIPTION OF PROCEDURE Fluoroscopically guided, contrast-controlled L5/S1 translaminar epidural steroid injection. Following review of allergy and review of potential side effects and complications, including, but not necessarily limited to, infection, allergic reaction, local tissue breakdown, temporary as well as permanent nerve injury, paralysis, stroke and possible , the patient indicated that the patient understood and agreed to proceed. An informed consent document was signed by the patient, witnessed by a nurse, and placed in the patient's chart. Additionally, other treatment options including modalities, medications, and physical therapy were reviewed with the patient. After review of previous anaesthesic history and IV conscious sedation the p atient was deemed safe to proceed with today?s procedure with IV conscious sedation as ASA class II designation. Safety time-out was performed to confirm patient ID, procedure to be performed and site of procedure. IV sedation was accomplished with a combination of 1mg of Versed administered by the RN after DO order, titrated to patient comfort during the course of the procedure while the patient remained responsive to all verbal commands. In the prone position, following sterile prep and drape of the lumbar region, the L5/S1 translaminar space was identified fluoroscopically. The skin was a nesthetized via a 25-gauge, 1.5-inch needle with 1% lidocaine solution. At this point, a 22-gauge short bevel spinal needle was atraumatically introduced and advanced under fluoroscopic guidance into the region of the L5/S1 translaminar space. Depth was confirmed on lateral view. Radiological data, including multiple fluoroscopic views of the lumbar spine, reveal a spinal needle at the L5/S1 translaminar space. Lateral views then show placement of the needle in the epidural space. Subsequent views show contrast material flowing superiorly and inferiorly in the epidural space. No vascular or intrathecal uptake is observed. At this point, using loss of resistance technique with saline and air, the epidural space was entered. This was confirmed following negative aspiration with injection of approximately 1.5cc of Isovue 200, showing excellent epidural flow without vascular or intrathecal uptake. At this point, 1 cc of 1% lidocaine solution combined with 2cc or 10mg of dexamethasone and 6mg of betamethasone was injected without incident. The patent tolerated the procedure without signs of symptoms of complications prior to transfer to the recovery area for further monitoring. The patient was then transferred to the recovery area where they were observed for an appropriate period of time after the injection. The patient reported a VAS score of 6 prior to the procedure and a post-procedure VAS of 0. POST OP INSTRUCTIONS The patient was provided a Pain Log to continue to record their response to the target-specific procedure prior to follow-up visit with their referring physician. Additionally, specific post-injection care instructions and a contact number to our office were provided if concerns arise regarding possible complications associated with the procedure are suspected.
== END 2023-07-05 11:43 | disposition home or self-care (01) ==
PROVIDERS: PCP Internal Medicine; Referring Provider Physical Medicine & Rehabilitation; Visit Provider Physical Medicine & Rehabilitation
DX: M51.17 Intervertebral disc disorders with radiculopathy, lumbosacral region (principal); M48.07 Spinal stenosis, lumbosacral region
CPT/HCPCS: 62323; 99152; J0702; J1100; J2250; J3490

== ENCOUNTER → 2023-08-02 06:47 | Outpatient (CLI) | payer MEDICARE, OTHER, SELFPAY ==
--- NOTE | 2023-08-02 06:49 | DI.ECHO.S_ITS ---
[facility] : : [id number] : [place] : : [id number] : : Phone: [phone] Echocardiogram Report + + :Name: LAURA MULLEN Study Date: 08/02/2023 Height: 58 in : :[facility] ReadingLocation: Weight: 126 lb : : Gender: Female BSA: 1.5 m2 : :: 1940 Age: 83 yrs BP: 139/75 mmHg: :Reason For Study: DYSPNEA ON EXERTION : :Ordering Physician: BRENDAN : :DANIE Performed By: Mehrdad Ames : :Referring: DANIE CARDONA : + + Interpretation Summary The ejection fraction is estimated to be 55-60%. Grade II diastolic dysfunction. The right ventricular systolic function is normal. The right ventricular systolic pressure is estimated to be at least 32.9 mmHg based on an estimated right atrial pressure of 3 mm Hg. The left atrium is severely dilated. There is mild mitral regurgitation. Procedure: A two-dimensional transthoracic echocardiogram with color flow and Doppler was performed. The study quality was technically adequate. There is no prior echocardiogram noted for this patient. The patient was in atrial fibrillation with heart rates between 68-90 bpm during the exam. Left Ventricle: The left ventricle is normal in size and wall thickness. The ejection fraction is estimated to be 55-60%. There are no obvious focal wall motion abnormalities noted but poor endocardial definition reduces the sensitivity for the detection of such. Grade II diastolic dysfunction. Right Ventricle: The right ventricle is normal size. The right ventricular systolic function is normal. Atria: The left atrium is severely dilated. Right atrial size is normal. The interatrial septum grossly appears intact with no obvious evidence for an atrial septal defect. Mitral Valve: The mitral valve is normal in structure and function. There is no mitral valve stenosis. There is mild mitral regurgitation. Aortic Valve: The aortic valve is trileaflet. There is no aortic valve stenosis. There is trace aortic regurgitation. Tricuspid Valve: The tricuspid valve is normal. There has been no significant change since the previous study. There is trace tricuspid regurgitation. The right ventricular systolic pressure is estimated to be at least 32.9 mmHg based on an estimated right atrial pressure of 3 mm Hg. Pulmonic Valve: The pulmonic valve is not well visualized. There is no pulmonic valvular stenosis. There is a trace or physiologic amount of pulmonic regurgitation. Great Vessels: The aortic root is normal size. The dimensions of the ascending aorta are normal. The IVC is of normal diameter and collapses greater than 50% with a sniff. This suggests a low right atrial pressure of 3 mm Hg. Pericardium/ Pleura There is no pericardial effusion. There is no pleural effusion. MMode/2D Measurements & Calculations LVIDd: 4.3 cm LVOT diam: 1.9 cm LVIDs: 2.7 cm Ao root diam: 3.1 cm FS: 37.5 % asc Aorta Diam: 3.6 cm IVSd: 0.97 cm Ao Arch Diam (Prox Trans): 2.5 cm LVPWd: 0.95 cm LV salazar. diameter/BSA (cm/m^2): 2.8 LV sys. diameter/BSA (cm/m^2): 1.8 LA A2 area: 26.9 cm2 RA long axis: 4.2 cm LA A4 area: 24.5 cm2 RA area: 14.8 cm2 LA length (vol): 6.0 cm RA vol: 44.5 ml LA vol: 93.1 ml RA : 29.7 ml/m2 LA vol index: 62.2 ml/m2 IVC diam: 1.5 cm RVD1 (basal): 3.1 cm RVD2 (mid): 2.8 cm TAPSE: 2.4 cm Doppler Measurements & Calculations Ao V2 max: 137.4 cm/sec LVOT Max Rojas: 111.3 cm/sec Ao V2 mean: 96.7 cm/sec LV V1 max P.0 mmHg Ao max P.6 mmHg LV V1 VTI: 25.0 cm Ao mean P.1 mmHg CARMELINA(I,D): 2.2 cm2 Ao V2 VTI: 33.8 cm CARMELINA(V,D): 2.4 cm2 sev ratio: 0.74 CARMELINA indexed to BSA (cm^2/m^2): 1.4 MV E max rojas: 134.5 cm/sec TR max rojas: 273.5 cm/sec MV A max rojas: 91.5 cm/sec TR max P.9 mmHg MV E/A: 1.5 PA V2 max: 92.2 cm/sec Med Peak E' Rojas: 5.3 cm/sec PA V2 mean: 71.4 cm/sec E/E' med: 25.4 PA mean P.1 mmHg Lat Peak E' Rojas: 6.5 cm/sec PA pr(Accel): 25.9 mmHg E/E' lat: 20.8 E/e' average: 23.1 MV dec time: 0.22 sec [facility] 73.2 ml Reading Physician:GARCIA
== END ==
LOC: ECHO 06:48
PROVIDERS: PCP Internal Medicine; Referring Provider Internal Medicine; Visit Provider Internal Medicine
DX: I34.0 Nonrheumatic mitral (valve) insufficiency (principal); R06.09 Other forms of dyspnea
CPT/HCPCS: 93306

== ENCOUNTER 2023-08-02 09:33 | Outpatient (CLI) | payer MEDICARE, OTHER, SELFPAY ==
[2023-08-02] VITALS (8 sets, daily range): BP systolic 137–164; BP diastolic 69–87; PULSE 74–84; RESP 10–20; TEMP 36.6; O2SAT 95–98
--- NOTE | 2023-08-02 10:15 | DI.RAD.S_ITS ---
PROCEDURE: PAIN SI JOINT INJECTION KENZIE INDICATIONS: Bilateral sacroiliac joint injection COMPARISON: [facility], , PAIN SI JOINT INJECTION KENZIE, 04/24/2023, 12:05. FINDINGS: Fluoroscopic spot filming was performed to verify placement of spinal needles at the bilateral SI joint level(s), as labeled on the films. Appropriate location(s) of the needle tip(s) was confirmed by injection of iodinated contrast. IMPRESSION: Needle and contrast placement overlying the SI joints bilaterally. Dictated by: Sally Ch M.D. on 08/02/2023 at 17:08 Approved by: Sally Ch M.D. on 08/02/2023 at 17:08
[2023-08-02] MEDS: MIDAZOLAM 2 MG/2 ML VIAL 1 MG IV (10:43)
[2023-08-02] MEDS: iopamidoL 15 ML VIAL 3 ML INJ (10:47)
[2023-08-02] MEDS: BUPIVACAINE 0.5% (PF) 10 ML VIAL 5 ML INJ (10:47)
[2023-08-02] MEDS: BETAMETHASONE 30 MG/5 ML MDV 12 MG INJ (10:47)
--- NOTE | 2023-08-02 10:59 | PM.PROC.IR.1 ---
Date/Time/Diagnoses Date of procedure: 08/02/23 Time of procedure: 10:59 Pre-procedure diagnosis: Sacroiliac joint pain/DJD Post-procedure diagnosis: same Procedure Notes Procedure: Fluoroscopic guided contrast controlled bilateral sacroiliac joint injection Indications: Aubrie is referred by Dr. Perry for treatment of bilateral sacroiliac joint DJD Physician: Shawn Jay Total Fluoroscopy time (seconds): 14 Total sedation minutes: 12 Complications: none Procedure in detail & Post-procedure care: Description of procedure Fluoroscopic guided, contrast controlled bilateral sacroiliac joint injection Following review of allergies and review of potential side effects and complications, including, but not necessarily limited to, infection, allergic reaction, local tissue breakdown, temporary as well as permanent nerve injury, paralysis, stroke and possible , the patient indicated that they understood and agreed to proceed. An informed consent was signed by the patient, witnessed by a nurse, and placed in the patient's chart. Additionally, other treatment options including modalities, medications, and physical therapy were reviewed with the patient. After review of previous anaesthesic history and IV conscious sedation the patient was deemed safe to proceed with today?s procedure with IV conscious sedation as ASA class II designation. Safety time-out was performed to confirm patient ID, procedure to be performed and site of procedure. IV sedation was accomplished with a combination of 1mg Versed were administered by the RN after DO order, titrated to patient comfort during the course of the procedure while the patient remained responsive to all verbal commands In the prone position following sterile prep and drape of the pelvic region, the hyper lucency on in the inferior aspect of the sacroiliac joint was identified fluoroscopically the skin was anesthetized be a 25 gauge 1.5 inch needle with approximately 2cc of 1% lidocaine solution. At this point, a 22 gauge 3 in spinal needle was atraumatically introduced and advanced under fluoroscopic guidance into the inferior aspect of the right sacroiliac joint. Following negative aspiration, approximately 0.3cc of Isovue-300 was injected confirming intra-articular placement without vascular uptake. Radiographic data, including multiple fluoroscopic views of the pelvis, reveals a spinal needle in the sacroiliac joint hyper lucent zone. Subsequent view show flow contrast tear superiorly and inferiorly within the joint capsule without vascular intrathecal uptake. At this point a total of 1cc of 0.5% Marcaine was combined with 1cc of 6mg of betamethasone was injected without incident. Attention was then refocused the left sacroiliac joint where the procedure was replicated. The procedure tolerated the procedure well without signs or symptoms of complications prior to transfer to the recovery area continued monitoring without incident. The patient was then transferred to the recovery area with a bur observed for an appropriate time after the injection. The patient reverted a vas score of 7 prior to the procedure and post-procedure vas of 1. Postop instructions The patient was provided with a pain like to continue to record the patient's response to the target specific procedure prior to the patient's follow-up visit with the referring physician. Additionally, specific post injection care instructions and a contact number to our office were provided if concerns arise regarding the possible complications associated with procedure are suspected.
== END 2023-08-02 11:20 | disposition home or self-care (01) ==
LOC: RAD 09:34
PROVIDERS: PCP Internal Medicine; Referring Provider Physical Medicine & Rehabilitation; Visit Provider Physical Medicine & Rehabilitation
DX: M53.3 Sacrococcygeal disorders, not elsewhere classified (principal); M46.1 Sacroiliitis, not elsewhere classified; I34.0 Nonrheumatic mitral (valve) insufficiency; R06.09 Other forms of dyspnea
CPT/HCPCS: 27096; 93306; 99152; J0702; J2250

== ENCOUNTER → 2023-08-16 08:57 | Outpatient (CLI) | payer MEDICARE, OTHER, SELFPAY ==
--- NOTE | 2023-08-16 08:59 | DI.RAD.S_ITS ---
PROCEDURE: XR FOOT RT MIN 3V INDICATIONS: Right foot pain TECHNIQUE: 3 views of the foot were acquired. COMPARISON: None. FINDINGS: Bones: No acute fractures or dislocations. Degenerative changes of the right 1st metatarsophalangeal joint. Degenerative changes of the dorsal right midfoot. Prominent plantar calcaneal and retrocalcaneal enthesophytes. Mild anterior tibiotalar joint degenerative changes. No suspicious bony lesions. Soft tissues: No tibiotalar joint effusion. Achilles tendon appears normal. IMPRESSION: No acute bony abnormality. 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 Prominent plantar calcaneal and retrocalcaneal enthesophytes. Dictated by: Papito Sun M.D. on 08/16/2023 at 10:41 Approved by: Papito Sun M.D. on 08/16/2023 at 10:43
== END ==
PROVIDERS: PCP Internal Medicine; Referring Provider Nurse Practitioner Family; Visit Provider Nurse Practitioner Family
DX: M79.671 Pain in right foot (principal); M77.31 Calcaneal spur, right foot
CPT/HCPCS: 73630

== ENCOUNTER 2023-09-19 08:09 | Day surgery (SDC) | payer MEDICARE, OTHER, SELFPAY ==
[2023-09-12 15:01] VITALS: BMI 27.1
[2023-09-19] VITALS (7 sets, daily range): BP systolic 117–141; BP diastolic 61–88; PULSE 71–96; RESP 10–17; TEMP 36.1–36.8; O2SAT 93–97; BMI 27.1
--- NOTE | 2023-09-19 | DI.RAD.S_ITS ---
PROCEDURE: XR FOOT RT MIN 3V INDICATIONS: ORIF 5TH METETARSAL FX, INTRAOP TECHNIQUE: 3 spot fluoroscopic intraoperative images of the midfoot. COMPARISON: [facility], CR, XR FOOT 3 VIEWS WEIGHT BEARING RIGHT, 09/07/2023, 15:49. Merged With [facility], CR, XR FOOT RT MIN 3V, 08/16/2023, 9:10. FINDINGS: Spot fluoroscopic intraoperative images demonstrate interval internal fixation of the previously seen proximal 5th metatarsal fracture with a single cannulated lag screw. Osseous alignment appears anatomic. IMPRESSION: Intraprocedural images demonstrate internal fixation of the proximal 5th metatarsal fracture. Approved by: Latrell Reid M.D. on 09/19/2023 at 13:57
[2023-09-19] MEDS: LACTATED RINGERS 1,000 ML 42 ML IV (08:26)
[2023-09-19] MEDS: ACETAMINOPHEN 325 MG TABLET 975 MG PO (08:27)
--- NOTE | 2023-09-19 09:11 | PM.PREOP ---
Pre-operative Note Interval Note History & Physical reviewed/Exam performed by Physician: Yes Changes to H&P: No
[2023-09-19] MEDS: CEFAZOLIN 2 GM/100 ML PREMIX 100 ML IV (09:35)
--- NOTE | 2023-09-19 09:43 | SUR.OPER ---
Supine on padded OR bed, head on pillow, arms secured on padded arm boards at <90 degrees abduction, legs uncrossed, safety belt at thigh, tape over blanket over lower legs, rolled up blanket under right hip.
[2023-09-19] MEDS: BUPIVACAINE 0.25% (PF) 30 ML, EPINEPHrine 0.15 MG INJ (10:00)
--- NOTE | 2023-09-19 10:39 | SUR.PHASEI ---
1034 - Received to PACU after LMA general anesthesia. Airway patent, self maintained. Report from ERIN Vega and RASHEEDA Alvarez.
--- NOTE | 2023-09-19 10:44 | PM.OP.1 ---
Operative Date/Time/Diagnoses Date of procedure: 09/19/23 Time of procedure: 09:45 Pre-op diagnosis: Displaced fracture 5th metatarsal bone, right Post-op diagnosis: same Procedure & Clinicians Procedure: open Reduction internal fixation right 5th metatarsal bone CPT code 22736 Same procedure as scheduled: Yes Indications: The patient is a 83-year-old female with a right foot injury after stepping sideways on a threshold barefoot 6 weeks ago she has a displaced 5th metatarsal fracture in zone 2 with plantar gapping. She has had no improvement over the previous 6 weeks. She was indicated for treatment due to her zone 2 fracture with variable blood supply and persistent symptoms, fracture displacement and difficulty with nonweightbearing. The risks and benefits of the procedure have been discussed with the patient and given the opportunity to ask questions. The risks of surgery include but are not limited to infection, malunion, nonunion, persistence of pain, damage to nerves and blood vessels, posttraumatic arthritis, DVT, PE, coardiopulmonary complications and . The patient expressed a thorough understanding of the risks and benefits of surgery and has elected to proceed. Consent was signed. Surgeon: Lena Jaeger Click Yes if Unassisted: Yes Anesthesia Type: General and Local Operative Notes Findings: Displaced zone 2 right 5th metatarsal base fracture Closure Type: primary Prosthetic devices, grafts, tissues, transplants, or devices: Arthrex 5th metatarsal screw solid 6.0 x 40 mm Estimated Blood Loss (mL): 5 Blood products transfused: none Tourniquet time (min): 0 Procedure in detail: Patient was seen in the preoperative area the site of surgery was marked this was the right foot. Informed consent was confirmed. The patient was brought back to the operating room positioned supine on operative table. General anesthetic was administered. All bony prominences were well padded. A thigh bump was placed. A contralateral SCD was placed. A thigh tourniquet was placed on the operative extremity but not inflated. The right lower extremity was prepped and draped in standard sterile fashion a formal time-out procedure was performed confirming the patient's side and site of surgery administration of appropriate preoperative antibiotic. Attention was turned to the right foot C-arm was brought in and the longitudinal axis of the 5th metatarsal base fracture and desired starting point were marked out on the skin. Small incision proximally 2 cm proximal to the base of the 5th metatarsal was made and taken carefully through the skin this was later extended toward the base of the fracture for exposure. The splint I dissected down to the 5th metatarsal base. Guidewire was placed in the high and inside trajectory and advanced across the fracture and checked in AP oblique and lateral planes confirmed to be in bone and advanced to the appropriate depth. This was then overdrilled and then tapped up to this 6.0 width to get some bite. A 40 mm screw was selected as the length and a 6 0 x 40 mm screw was advanced across the fracture with appropriate fixation. This was checked on multiple planes and confirmed appropriate depth and within bone. The instruments were removed. Hemostasis was achieved and the wound was closed with 4-0 Monocryl and 4-0 nylon suture. 20 cc of 0.25% Marcaine with epinephrine was injected for local anesthetic. The patient was placed in a posterior splint that was well padded. Patient was woken from anesthesia and taken to recovery room in good condition there were no immediate complications from this procedure. Counts were correct. Complications: none Post-operative Condition: stable Disposition: PACU Plan for aftercare: Weightbear as tolerated with the assistive devices in walking boot. Initially placed in the splint then can change consultant to a walking boot for weight-bearing. Must use assistive devices for weight-bearing. Rest and elevate as much as possible and 1st 2 weeks after surgery. Follow up in 2 weeks for suture removal. Keep incision dry.
[2023-09-19] MEDS: HYDROMORPHONE 1 MG INJ IV ×2 (11:25→11:34)
[2023-09-19] MEDS: CODEINE/ACETAMINOPHEN 30/300 TABLET 1 TAB PO (11:30)
[2023-09-19] MEDS: ONDANSETRON 4 MG/2 ML INJ IV (11:40)
== END 2023-09-19 12:03 | disposition home or self-care (01) ==
PROVIDERS: PCP Internal Medicine; Referring Provider Orthopaedic Surgery Foot and Ankle Surgery; Visit Provider Orthopaedic Surgery Foot and Ankle Surgery
PROC: (CPT 28485; principal; 2023-09-19 13:15)
DX: S92.351A Displaced fracture of fifth metatarsal bone, right foot, initial encounter for closed fracture (principal); X50.1XXA Overexertion from prolonged static or awkward postures, initial encounter
CPT/HCPCS: 28485; 73630; 76000; C1713; J0171; J0690; J1170; J1885; J2405; J2704; J3010

== ENCOUNTER → 2024-02-13 10:36 | Outpatient (CLI) | payer MEDICARE, OTHER, SELFPAY ==
--- NOTE | 2024-02-13 | DI.CT.S_ITS ---
PROCEDURE: CT ABDOMEN PELVIS W CON INDICATIONS: abdominal pain TECHNIQUE: After the administration of intravenous contrast, axial sections acquired from the lung bases to the pubic symphysis. Coronal and sagittal reformats were performed. For radiation dose reduction, the following was used: automated exposure control, adjustment of mA and/or kV according to patient size. COMPARISON: [facility], CT, CT ABDOMEN PELVIS W CON, 10/24/2022, 14:03. [facility], CT, CT ABDOMEN PELVIS W CON, 11/11/2021, 15:43. FINDINGS: Image quality: Diagnostic. Lower Chest: No significant findings. Heart size is normal. Coronary atherosclerotic vascular calcifications are noted. ABDOMEN: Liver: No solid liver lesions. There is diffuse hypoattenuation of the liver parenchyma relative to the spleen compatible with hepatic steatosis. Gallbladder: No radiopaque gallstones or wall thickening. Biliary ducts: No biliary dilation. Pancreas: Homogeneous enhancement without focal lesions or pancreatic ductal dilatation. No peripancreatic inflammation or organized fluid collections. Fatty atrophy of the pancreas noted. Spleen: Size is within normal limits. Scattered splenic hypodensities not significantly changed. Adrenal Glands: No adrenal nodules. Kidneys and Ureters: No hydronephrosis. No solid mass. No complex renal cystic lesion which requires follow up. Small punctate nonobstructing right renal stones measuring up to 4 mm on the right. Similar but larger nonobstructing renal stones on the left largest measuring 9 mm measuring approximately a 1000 Hounsfield units. There is however, and obstructing 9 mm stone in the proximal left ureter at the level of the ureteropelvic junction. There is moderate left renal pelvic dilatation and mild hydronephrosis, similar to prior exam. No findings to suggest interval increase in ureteral wall thickening or intraluminal mass lesions, but there is persistent minimal wall thickening/enhancement within the left renal pelvis and proximal ureter. Stomach and Bowel: Normal colonic caliber, without significant wall thickening. Extensive colonic diverticulosis without acute diverticulitis. Moderate fecal burden seen throughout the colon. No evidence for small bowel obstruction or associated inflammatory changes. Peritoneum: No abnormal intraperitoneal fluid. No free air. Ventral Wall: No significant ventral hernia. Abdominal Nodes: No retroperitoneal or mesenteric adenopathy by size criteria. Vessels: Aorta and inferior vena cava are normal in size. PELVIS: Pelvic Organs: Unremarkable. Bladder: No bladder wall thickening, accounting for underdistention. Pelvic Nodes: No enlarged lymph nodes. Miscellaneous: No inguinal hernias are seen. Bones: No aggressive osseous abnormality. No acute vertebral body compression fractures. Multilevel spondylitic changes throughout the imaged spine. No suspicious osseous lesions. IMPRESSION: 1. Multiple punctate left renal stones with mildly obstructing 9 mm urolith visualized at the left ureteropelvic junction with persistent left renal pelvic dilatation and mild hydronephrosis. There is still mild wall thickening and enhancement of the left renal pelvis and proximal left ureter similar to most recent study dated October 24, 2022. There was concern for possible transitional cell carcinoma at that time. No findings to suggest interval progression. However, consider further evaluation with CT urogram to better characterize the urinary collecting system. Alternatively, urologic consultation can be considered if not already accomplished. 2. Multiple punctate nonobstructing right renal stones. 3. Extensive colonic diverticulosis without acute diverticulitis. 4. Hepatic steatosis. 5. Atherosclerosis. 6. Other chronic findings as above. Dictated by: Papito Sun M.D. on 02/13/2024 at 14:42 Approved by: Papito Sun M.D. on 02/13/2024 at 15:21
[2024-02-13 11:00] LABS: Estimated Glomerular Filt Rate 51 mL/min (>60)
== END ==
PROVIDERS: Radiology Diagnostic Radiology; PCP Internal Medicine; Referring Provider Internal Medicine; Visit Provider Internal Medicine
DX: N13.2 Hydronephrosis with renal and ureteral calculous obstruction (principal); K57.90 Diverticulosis of intestine, part unspecified, without perforation or abscess without bleeding; K76.0 Fatty (change of) liver, not elsewhere classified; I25.10 Atherosclerotic heart disease of native coronary artery without angina pectoris; R10.9 Unspecified abdominal pain
CPT/HCPCS: 36415; 74177; 82565; Q9967

== ENCOUNTER → 2024-02-22 13:50 | Outpatient (CLI) | payer MEDICARE, OTHER, SELFPAY | PROVIDERS: PCP Internal Medicine; Referring Provider Urology; Visit Provider Urology | DX: N20.1 Calculus of ureter (principal); Z87.440 Personal history of urinary (tract) infections | CPT/HCPCS: 81002; 87086; 99214 ==

== ENCOUNTER 2024-03-14 07:51 | Day surgery (SDC) | payer MEDICARE, OTHER, SELFPAY ==
[2024-03-07 13:56] VITALS: BMI 26.4
[2024-03-14] VITALS (10 sets, daily range): BP systolic 116–163; BP diastolic 71–96; PULSE 82–101; RESP 12–20; TEMP 36.4–37.2; O2SAT 88–98; BMI 26.4
--- NOTE | 2024-03-14 | DI.RAD.S_ITS ---
PROCEDURE: XR ABDOMEN 1V INDICATIONS: CYSTOSCOPY WITH LEFT STENT PLACEMENT TECHNIQUE: 5 intra-operative images acquired by the Urology service. COMPARISON: [facility], CR, XR ABDOMEN 1V, 12/30/2021, 12:00. FINDINGS: Intraoperative fluoroscopic images shows markedly contrast distension of left renal collecting system to the level of left UPJ. A left-sided ureteral stent is placed under fluoroscopic guidance. IMPRESSION: Fluoro guidance was provided intraoperatively for left-sided ureteral stent placement. Dictated by: Memo Shepard M.D. on 03/14/2024 at 13:49 Approved by: Memo Shepard M.D. on 03/14/2024 at 13:59
[2024-03-14] MEDS: LACTATED RINGERS 1,000 ML 21 ML IV (08:29)
--- NOTE | 2024-03-14 08:32 | PM.PREOP ---
Pre-operative Note COVID-19 COVID-19 status: Not tested Interval Note History & Physical reviewed/Exam performed by Physician: Yes Changes to H&P: No
[2024-03-14] MEDS: CEFAZOLIN 2 GM/100 ML PREMIX 100 ML IV (09:09)
--- NOTE | 2024-03-14 09:39 | SUR.OPER ---
Lithotomy on padded OR bed, head on pillow, arms secured on padded arm boards at <90 degrees abduction. Legs secured in padded yellow fins stirrups.
[2024-03-14] MEDS: iopamidoL 30 ML VIAL INJ (09:51)
--- NOTE | 2024-03-14 10:37 | P.OP_ITS ---
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 Surgeon: Jim Fonseca Click Yes if Unassisted: Yes Anesthesia Type: General Operative Notes Findings: Very dilated and blown out left renal collecting system, three large stones each ~1cm in diameter in addition to several smaller stones. Closure Type: not applicable Specimen(s): none sent Blood products transfused: none Procedure in detail: Procedures: 1) Cystoscopy 2) Left retrograde ureteropyelogram 3) Left ureteroscopy, laser lithotripsy 4) Left ureteral stent exchange 5) Intraoperative interpretation of fluoroscopic images, < 1 hour, all images saved to PACS Indication: Patient was identified in the preoperative holding area and consent confirmed. She was then brought to the operating room where general anesthesia was induced.? She was placed in the low lithotomy position. She was then prepped and draped in the usual sterile fashion. A surgical timeout was conducted and all were in agreement. ?Access to the bladder was obtained via a 30 degree cystoscope.? Complete cystoscopy was then performed and no concerning bladder masses or lesions were appreciated.? Bilateral ureteral orifices were easily identified and noted to be orthotopic in nature.? The left ureteral orifice was easily cannulated using a 5Fr ureteral catheter over a 0.035 sensor tip ureteral guidewire. The ureteral guidewire was removed and a retrograde ureteropyelogram was performed which noted severe hydronephrosis of the left kidney and normal ureteral architecture. The ureteral guidewire was readvanced through the ureteral catheter and into the left renal pelvis and the ureteral catheter was removed. An 11/13Fr ureteral access sheath was then advanced over the ureteral guidewire and into the proximal left ureter.? The ureteral guidewire and inner obturator were then removed.? The flexible ureteroscope was then advanced through the ureteral access sheath and into the left renal collecting system.? Complete pyeloscopy was then performed and several large stones were appreciated as well as the fact that her left renal collecting system was severely dilated and blown out. Laser lithotripsy was then performed using a 200 micron laser fiber.? After lasering for nearly 60 minutes, the visibility within her collecting system became very poor and the decision was made to stage her procedure.? The ureteral guidewire was then readvanced through the ureteroscope and into the left renal pelvis.? The ureter was then directly visualized upon removal of the ureteroscope and ureteral access sheath and noted to be stone free.? The cystoscope was then backloaded over the ureteral guidewire and advanced into the bladder.? A 6Fr multi-length JJ ureteral stent without strings was then advanced over the ureteral guidewire.? Upon removal of the guidewire, a good curl was noted within the left renal pelvis upon fluoroscopy and visually within the bladder.? The bladder was then drained and the cystoscope was removed.? Anesthesia was reversed, she was extubated in the OR and transferred to the PACU in stable condition for recovery. Complications: none Post-operative Condition: stable Disposition: PACU Plan for aftercare: Discharge home from PACU. Will return to OR in a few weeks for a repeat cystoscopy, left ureteroscopy, laser lithotripsy and left ureteral stent exchange.
[2024-03-14] MEDS: BENZOCAINE/MENTHOL 1 LOZ PKT 1 EACH PO (10:56)
[2024-03-14] MEDS: ACETAMINOPHEN IV 1,000 MG/100 ML VIAL 400 MG IV (10:57)
== END 2024-03-14 12:00 | disposition home or self-care (01) ==
PROVIDERS: PCP Internal Medicine; Referring Provider Urology; Visit Provider Urology
PROC: (CPT 52356; principal; 2024-03-14 09:15)
DX: N20.1 Calculus of ureter (principal)
CPT/HCPCS: 52356; 74018; 76000; C2617; J0131; J0330; J0690; J2405; J2704; J3010; J3490; Q9967

== ENCOUNTER → 2024-04-02 08:26 | Outpatient (CLI) | payer MEDICARE, OTHER, SELFPAY | PROVIDERS: PCP Internal Medicine; Referring Provider Urology; Visit Provider Urology | DX: Z87.440 Personal history of urinary (tract) infections (principal); Z87.442 Personal history of urinary calculi | CPT/HCPCS: 87086; 99214 ==

== ENCOUNTER 2024-04-11 07:52 | Day surgery (SDC) | payer MEDICARE, OTHER, SELFPAY ==
[2024-04-07 12:34] VITALS: BMI 26.4
[2024-04-11] MEDS: LACTATED RINGERS 1,000 ML 21 ML IV (08:34)
[2024-04-11 08:36] VITALS: BP 148/85; PULSE 90; RESP 16; TEMP 37; O2SAT 95; BMI 27.1
--- NOTE | 2024-04-11 09:28 | PM.PREOP ---
Pre-operative Note COVID-19 COVID-19 status: Not tested Interval Note History & Physical reviewed/Exam performed by Physician: Yes Changes to H&P: No
[2024-04-11] MEDS: CLINDAMYCIN 900 MG/50 ML PIGGYBACK 50 MG IV (10:04)
--- NOTE | 2024-04-11 10:27 | SUR.OPER ---
Lithotomy on padded OR bed, head on pillow, arms padded and secured at side. Legs secured in padded yellow fins stirrups.
[2024-04-11] MEDS: iopamidoL 30 ML VIAL INJ (10:30)
[2024-04-11 11:19] VITALS: BP 111/69; PULSE 77; RESP 14; TEMP 36.4; O2SAT 92
--- NOTE | 2024-04-11 11:20 | P.OP_ITS ---
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 She is now s/p a left ureteroscopy w/ laser lithotripsy and left ureteral stent placement. Discussed the need for a second look left ureteroscopy, laser lithotripsy and left ureteral stent exchange due to inability to remove all of her stone in one setting. Surgeon: Jim Fonseca Click Yes if Unassisted: Yes Anesthesia Type: General Operative Notes Findings: Very dilated and blown out left renal collecting system, several small to moderate sized stone fragments within her left renal collecting system. Closure Type: not applicable Specimen(s): other (kidney stone) Estimated Blood Loss (mL): 2 Blood products transfused: none Procedure in detail: 1) Cystoscopy 2) Left retrograde ureteropyelogram 3) Left ureteroscopy, laser lithotripsy 4) Left ureteral stent exchange 5) Intraoperative interpretation of fluoroscopic images, < 1 hour, all images saved to PACS Indication: Patient was identified in the preoperative holding area and consent confirmed. She was then brought to the operating room where general anesthesia was induced.? She was placed in the low lithotomy position. She was then prepped and draped in the usual sterile fashion. A surgical timeout was conducted and all were in agreement. ?Access to the bladder was obtained via a 30 degree cystoscope.? Complete cystoscopy was then performed and no concerning bladder masses or lesions were appreciated.? Bilateral ureteral orifices were easily identified and noted to be orthotopic in nature.? The previously placed left ureteral stent was externalized and a 0.035 sensor tip ureteral guidewire was advanced through the stent and into the left renal pelvis. A 12/14Fr ureteral access sheath was then advanced over the ureteral guidewire and into the proximal left ureter.? The ureteral guidewire and inner obturator were then removed.? The flexible ureteroscope was then advanced through the ureteral access sheath and into the left renal collecting system.? Complete pyeloscopy was then performed and several small to medium sized stone fragments were appreciated as well as the fact that her left renal collecting system was severely dilated and blown out. Laser lithotripsy was then performed using a 200 micron laser fiber.? All stone fragments >1mm in diameter were removed via the stone basket. The ureteral guidewire was then readvanced through the ureteroscope and into the left renal pelvis.? The ureter was then directly visualized upon removal of the ureteroscope and ureteral access sheath and noted to be stone free, however, she was noted to have severe edema of her left UPJ.? The cystoscope was then backloaded over the ureteral guidewire and advanced into the bladder.? A 6Fr multi-length JJ ureteral stent without strings was then advanced over the ureteral guidewire.? Upon removal of the guidewire, a good curl was noted within the left renal pelvis upon fluoroscopy and visually within the bladder.? The bladder was then drained and the cystoscope was removed.? Anesthesia was reversed, she was extubated in the OR and transferred to the PACU in stable condition for recovery. Complications: none Post-operative Condition: stable Disposition: PACU Plan for aftercare: Discharge home from PACU. Will return to Urology clinic on 01 May 2024 at 0920 to remove her left ureteral stent.
[2024-04-11 11:24] VITALS: BP 108/71; PULSE 101; RESP 14; O2SAT 92
[2024-04-11 11:29] VITALS: BP 109/63; PULSE 79; RESP 13; O2SAT 92
[2024-04-11] MEDS: ACETAMINOPHEN 325 MG TABLET 650 MG PO (11:33)
[2024-04-11 11:34] VITALS: BP 111/73; PULSE 72; RESP 13; O2SAT 93
[2024-04-11 11:40] VITALS: BP 115/67; PULSE 71; RESP 11; O2SAT 95
== END 2024-04-11 12:06 | disposition home or self-care (01) ==
PROVIDERS: PCP Internal Medicine; Referring Provider Urology; Visit Provider Urology
PROC: (CPT 52356; principal; 2024-04-11 09:15)
DX: N20.1 Calculus of ureter (principal); Z87.440 Personal history of urinary (tract) infections
CPT/HCPCS: 52356; 76000; 82365; C2617; J2405; J2704; J3010; Q9967

== ENCOUNTER 2024-05-21 11:06 | Emergency (ER) | payer MEDICARE, OTHER, SELFPAY ==
[2024-05-21] VITALS (8 sets, daily range): BP systolic 134–153; BP diastolic 86–93; PULSE 76–128; RESP 10–96; TEMP 36.6; O2SAT 93–100
--- NOTE | 2024-05-21 11:24 | DI.RAD.S_ITS ---
PROCEDURE: XR CHEST 1V INDICATIONS: chest pain TECHNIQUE: One view of the chest was acquired. COMPARISON: [facility], CR, XR CHEST 1V, 06/05/2023, 10:19. FINDINGS: Surgical changes and devices: None. Lungs and pleura: Lungs are clear. No pleural effusions or pneumothorax. Mediastinum: Mediastinal contours appear normal. Heart size is mildly enlarged. Bones and chest wall: No suspicious bony lesions. Overlying soft tissues appear unremarkable. IMPRESSION: No acute cardiopulmonary pathology. Dictated by: Memo Shepard M.D. on 05/21/2024 at 12:11 Approved by: Memo Shepard M.D. on 05/21/2024 at 12:11
--- NOTE | 2024-05-21 11:27 | EKG_ITS ---
[address] [address] Test Date: 2024-05-21 Pat Name: Aubrie Fermin Department: Room: Gender: Female Bus Operator: ANDREW : 1940 Requested By: Order Number: [id number] Reading MD: Jc Pearce Measurements Intervals [place] Rate: 111 P: DC: QRS: -25 QRSD: 94 T: 18 QT: 338 QTc: 459 Interpretive Statements Atrial flutter with variable AV block Minimal voltage criteria for LVH, may be normal variant ( R in aVL ) Cannot rule out Anterior infarct , age undetermined Electronically Signed On 05-24-2024 18:28:16 PDT by Jc Pearce
--- NOTE | 2024-05-21 11:59 | ED.ARRPALP ---
HPI - Arrhythmia/Palpitations General Chief Complaint: Arrhythmia/Palpitations Stated Complaint: Afib Time Seen by Provider: 05/21/24 11:53 Source: patient Mode of arrival: Ambulatory History of Present Illness HPI narrative: 84-year-old woman with a history of hypertension, kidney stones, chronic musculoskeletal and joint pain was seen at her PCPs office with an EKG showing atrial fibrillation, a new event for the patient. Patient reports tachycardia as high as 158 on the evening of May 17. She is not dyspneic however she complains of 8/10 pain/tightness in her chest. Related Data Home Medications Medication Instructions Recorded Confirmed calcium carbonate 500 mg PO DAILY ##0 09/30/11 05/01/24 Fish Oil 1,000 mg PO QDAY #0 tabs 01/05/16 05/01/24 biotin 2,500 mcg capsule 5,000 mcg PO BID ##0 01/05/16 05/01/24 losartan 50 mg tablet 50 mg PO QDAY ##0 01/05/16 05/01/24 bupropion HCl 100 mg tablet,12 hr 100 mg PO DAILY 08/24/17 05/01/24 sustained-release docusate sodium 100 mg capsule 100 mg PO BID 08/24/17 05/01/24 potassium gluconate 595 mg (99 mg) 595 mg PO DAILY 03/15/20 05/01/24 tablet clobetasol 0.05 % scalp solution ml topical 09/28/21 05/01/24 pantoprazole 20 mg tablet,delayed 20 mg PO DAILY 09/28/21 05/01/24 release amlodipine 10 mg tablet 10 mg PO DAILY 01/23/22 05/01/24 cyclosporine 0.05 % eye drops in a 1 drp EYE-BOTH DAILY 01/23/22 05/01/24 dropperette (Restasis) tizanidine 2 mg tablet 2 mg PO BEDTIME 08/21/22 05/01/24 cholecalciferol (vitamin D3) 50 50 mcg PO BID 11/15/22 05/01/24 mcg (2,000 unit) capsule tacrolimus 0.1 % topical ointment 1 applic topical DAILY 04/16/23 05/01/24 desonide 0.05 % topical cream 1 applic topical BEDTIME 07/18/23 05/01/24 ketoconazole 2 % shampoo topical 08/16/23 05/01/24 doxazosin 8 mg tablet,extended 8 mg PO QAM 09/17/23 05/01/24 release 24 hr (Cardura XL) tizanidine 2 mg tablet 2 mg PO Q6-8H PRN Pain 09/17/23 05/01/24 denosumab 60 mg/mL subcutaneous 60 mg SUBCUT [id number] 02/22/24 05/01/24 syringe (Prolia) Previous Rx's Medication Instructions Recorded celecoxib 200 mg capsule (Celebrex) 200 mg PO QDAY #90 caps 05/16/23 estradiol 0.01% (0.1 mg/gram) 1 g vaginal 2XW #42.5 grams 06/05/23 vaginal cream (Estrace) tramadol 50 mg tablet 50 mg PO Q8H PRN pain (scale score 03/14/24 7-10) #7 tabs cefdinir 300 mg capsule 300 mg PO BID #14 caps 04/04/24 tamsulosin 0.4 mg capsule 0.4 mg PO DAILY #20 caps 04/11/24 apixaban 5 mg tablet (Eliquis) 5 mg PO BID #60 tabs 05/21/24 furosemide 20 mg tablet 20 mg PO DAILY #30 tabs 05/21/24 metoprolol tartrate 25 mg tablet 25 mg PO BID #60 tabs 05/21/24 potassium chloride 8 mEq 8 meq PO DAILY #30 caps 05/21/24 capsule,extended release Allergies Allergy/AdvReac Type Severity Reaction Status Date / Time doxycycline Allergy Intermediate Hives Verified 05/01/24 09:13 lisinopril Allergy Intermediate Headache Verified 05/01/24 09:13 pimecrolimus [From Elidel] Allergy Intermediate BURN SKIN Verified 05/01/24 09:13 lactose Allergy Mild RASH Verified 05/01/24 09:13 latex Allergy Mild ITCH Verified 05/01/24 09:13 aspirin AdvReac Mild N/V Verified 05/01/24 09:13 hydrocodone AdvReac Mild N/V Verified 05/01/24 09:13 oxycodone AdvReac Mild N/V Verified 05/01/24 09:13 Patient History Medical History Degenerative joint disease of knee Osteoarthritis Fibromyalgia Degenerative joint disease of foot, right Hip arthritis Left nephrolithiasis History of UTI 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 Carpal tunnel syndrome on both sides History of nephrolithiasis Sacral back pain Hypertension Surgical History Hx of cystoscopy (03/14/24) Status post right foot surgery (09/19/23) Hx of cystoscopy (2023) Hx of hand surgery History of hysterectomy H/O oophorectomy Family History Mother Cancer Social History household members: spouse Smoking Status: Never smoker alcohol intake: current Smoking Status: Never smoker alcohol intake frequency: holidays/special occasions only Exam Initial Vital Signs Initial Vital Signs: Vital Signs Temperature 98 F 05/21/24 11:20 Pulse Rate 126 H 05/21/24 11:20 Respiratory Rate 96 H 05/21/24 11:20 Blood Pressure 152/91 H 05/21/24 11:20 Pulse Oximetry 100 05/21/24 11:20 Oxygen Delivery Method Room Air 05/21/24 11:20 Course Orders Ordered: ED Orders 05/21/24 11:24 XR chest 1V Stat EKG-12 Lead Stat 05/21/24 12:00 Complete Blood Count AUTO DIFF Stat Comprehensive Metabolic Panel Stat Lipase Stat Magnesium Stat NT-proBNP (BNP-Adult 18+) Stat PTT Partial Thromboplastin Roman Stat Prothrombin Time INR Stat Troponin & CK Cardiac Panel Stat Discontinued Medications Aspirin (Aspirin 81 Mg Chew Tab) 324 mg PO NOW ONE Stop: 05/21/24 11:25 Last Admin: 05/21/24 11:59 Dose: Not Given Documented By: SB Furosemide (Furosemide 40 Mg/4 Ml Vial) 20 mg IV NOW ONE Stop: 05/21/24 12:52 Last Admin: 05/21/24 13:12 Dose: 20 mg Documented By: SB Metoprolol Tartrate (Metoprolol Tartrate 5 Mg/5 Ml Inj) 5 mg IV NOW ONE Stop: 05/21/24 12:52 Last Admin: 05/21/24 13:13 Dose: 5 mg Documented By: JACKY Metoprolol Tartrate (Metoprolol Ir 25 Mg Tablet) 25 mg PO NOW ONE Stop: 05/21/24 12:52 Last Admin: 05/21/24 13:12 Dose: 25 mg Documented By: JACKY Vital Signs Vital signs: Vital Signs - 8 hr 05/21/24 11:20 05/21/24 11:38 05/21/24 12:00 Temperature 98 F Pulse Rate 126 H 128 H 102 H Respiratory Rate 96 H 18 17 Blood Pressure 152/91 H 153/91 H 138/92 H Pulse Oximetry 100 97 95 Oxygen Delivery Method Room Air 05/21/24 12:30 05/21/24 13:01 Temperature Pulse Rate 93 H 102 H Respiratory Rate 10 L 18 Blood Pressure 138/90 150/90 H Pulse Oximetry 93 95 Oxygen Delivery Method Room Air MDM - Arrhythmia/Palpitations Lab Data 05/21/24 12:00 05/21/24 12:00 Labs: Lab Results 05/21/24 Range/Units 12:00 WBC 8.5 (4.5-11.0) X10^3/uL RBC 4.08 (4.0-5.2) X10^6/uL Hgb 12.2 (12.0-16.0) g/dL Hct 36.7 (36-46) % MCV 89.7 (80-100) fL MCH 29.9 (26-34) PG MCHC 33.3 (30-36) % RDW 14.5 (11.6-14.8) % Plt Count 216 (150-400) X10^3/uL Neut % (Auto) 41.9 L (50-75) % Lymph % (Auto) 49.0 H (25-40) % Andrew % (Auto) 7.6 (3-14) % Eos % (Auto) 1.0 L (2-4) % Baso % (Auto) 0.5 (0-2) % Neut # (Auto) 3600 (6839-8568) /uL Lymph # (Auto) 4200 (8208-7670) /uL Andrew # (Auto) 600 (0-900) /uL Eos # (Auto) 100 (0-450) /uL Baso # (Auto) 0 (0-100) /uL PT 11.1 (9.4-12.5) SECONDS INR 1.0 (0.9-1.3) APTT 25 L (25.1-36.5) SECONDS Sodium 136 L (137-145) mmol/L Potassium 3.8 (3.4-5.1) mmol/L Chloride 103 (98-107) mmol/L Carbon Dioxide 24 (22-32) mmol/L BUN 20 H (7-17) mg/dL Creatinine 0.88 (0.52-1.04) mg/dL Estimated GFR > 60 (>60) mL/min BUN/Creatinine Ratio 22.7 H (6-22) Glucose 106 (80-110) mg/dL Calcium 9.6 (8.4-10.2) mg/dL Magnesium 1.8 (1.6-2.3) mg/dL Total Bilirubin 0.6 (0.2-1.3) mg/dL AST 24 (14-36) IU/L ALT 19 (<35) IU/L Alkaline Phosphatase 59 (38-126) U/L Total Creatine Kinase 30 (30-135) U/L Troponin I < 0.012 (0.01-0.034) ng/mL NT-Pro-B Natriuret Pep 2690 H (<450) pg/mL Total Protein 6.6 (6.3-8.2) g/dL Albumin 4.2 (3.5-5.0) g/dL Globulin 2.4 (1.7-4.1) g/dL Albumin/Globulin Ratio 1.8 (1.0-2.8) Lipase 22 L (23-300) U/L Urine Dip Bedside Urine Glucose Negative Bedside Urine Bilirubin - Negative Bedside Urine Ketone - Negative Urine Specific Pat[place] 1.010 Bedside Urine Occult Blood - Negative Bedside Urine pH 6.0 Bedside Urine Protein - Negative Bedside Urine Urobilinogen - Negative Bedside Urine Nitrite - Negative Bedside Urine Leukocytes - Negative Esterase MDM Narrative Medical decision making narrative: CC: New onset atrial fibrillation Complicating co-morbidities: Hypertension, kidney stones, no previously identified coronary disease or cardiac arrhythmias Data collected from: patient Social determinants of health that may influence the patients condition: Medical records reviewed: Hospital medical records are reviewed, Urology, physiatry and orthopedic notes are available On the EKG for comparison is February 13, 2023 and she is in sinus rhythm at that time Differential considered: Atrial fibrillation, acute coronary syndrome, rate-related congestive heart failure, postviral cardiomyopathy Exam documented above, pertinent findings include: Patient is alert and appropriate, no acute distress no respiratory distress. She is some minor bibasilar crackles, no JVD, no lower extremity edema Lab Test results independently reviewed as above. Pertinent findings: CBC is unremarkable Chemistries are reassuring with creatinine at 0.88 Troponin is not elevated BNP is elevated at 2690 Independently reviewed EKG: Atrial fibrillation at a rate of 111 without acute ischemic changes Imaging studies independently reviewed: Chest x-ray does not show significant heart failure Consultations: Discussion with Dr. Wynn. Recommends beta-blockers for rate control, anticoagulation, echocardiogram, Lasix and hospital admission Treatments: 20 mg of Lasix, 5 mg of IV metoprolol followed by 25 mg of oral metoprolol Discussion: 84-year-old woman with new onset atrial fibrillation currently at least 5 days with rapid ventricular response no elevated troponin but mild congestive heart failure. This is approximately 13 days after an influenza a with all viral symptoms resolved this point. We will discuss with the hospitalist. Hospitalist came down and did an echocardiogram in the emergency department, patient is rate controlled he feels that she will be safe to go home with metoprolol for rate control of her newly diagnosed atrial fibrillation Eliquis for stroke prophylaxis secondary to new atrial fibrillation We will add 20 mg of Lasix and 8 mEq of potassium to help with diuresis with the rate-related new congestive heart failure We will coordinate with her primary care physician as she is going to need outpatient echocardiogram, cardiology consult with consideration of JENNA, lab work regarding her new congestive heart failure in addition of diuretic and close outpatient follow up Patient very much prefers this plan to hospital admission. Care is coordinated with , outpatient physician who found her AFib earlier today and is covering for Dr. Perry. He will arrange for timely outpatient follow up. Discharge Plan Departure Patient Disposition: Home Clinical Impression: Atrial fibrillation with rapid ventricular response Acute CHF (congestive heart failure) Qualifiers: Heart failure type: unspecified Qualified Code(s): I50.9 - Heart failure, unspecified Instructions: DI for Atrial Fibrillation Activity Restrictions/Additional Instructions: Thank you for coming in today You have new atrial fibrillation There a lot of things to be considered and much more follow up to come. Issue #1. Is controlling the rate. For this, please use 25 mg of metoprolol twice a day #2 Anticoagulation to prevent stroke risk. For this please begin Eliquis 5 mg twice a day #3 Lasix/furosemide to help with the fluid overload from the new congestive heart failure #4 Potassium because Lasix will make you lose potassium I did talk with to let him know he will be going home from the hospital. Please expect a call from their office to schedule a follow up appointment within a week. He will need blood work, eventually an echocardiogram and will need follow up with a transportation sales consultant. If you have more problems, more chest pain, more shortness of breath or something new develops please return to the ER Your prescriptions were all sent to [facility] Prescriptions: New furosemide 20 mg tablet 20 mg PO DAILY Qty: 30 0RF potassium chloride 8 mEq capsule, extended release 8 meq PO DAILY Qty: 30 0RF metoprolol tartrate 25 mg tablet 25 mg PO BID Qty: 60 0RF Eliquis 5 mg tablet 5 mg PO BID Qty: 60 0RF No Action ketoconazole 2 % shampoo topical calcium carbonate 500 mg calcium (1,250 mg) Tablet 500 mg PO DAILY Qty: 0 biotin 2,500 MCG capsule 5,000 mcg PO BID Qty: 0 Fish Oil 1,000 mg PO QDAY Qty: 0 losartan 50 MG tablet 50 mg PO QDAY Qty: 0 celecoxib [Celebrex] 200 mg capsule 200 mg PO QDAY Qty: 90 1RF estradiol [Estrace] 0.01 % (0.1 mg/gram) cream 1 g vaginal 2XW Qty: 42.5 5RF Rx Instructions: Insert 1 g intravaginally at bedtime times 12 days, then insert 1 g intravaginally twice weekly at bedtime as directed. cefdinir 300 mg capsule 300 mg PO BID Qty: 14 0RF tizanidine 2 mg Tablet 2 mg PO Q6-8H PRN (Reason: Pain) Cardura XL 8 mg Tablet Extended Release 24hr 8 mg PO QAM Rx Instructions: must administer with breakfast tramadol 50 mg tablet 50 mg PO Q8H PRN (Reason: pain (scale score 7-10)) Qty: 7 0RF tamsulosin 0.4 mg capsule 0.4 mg PO DAILY Qty: 20 0RF Rx Instructions: take one tab daily for stent discomfort bupropion HCl 100 mg tablet extended release 12 hr 100 mg PO DAILY docusate sodium 100 mg capsule 100 mg PO BID cyclosporine [Restasis] 0.05 % dropperette 1 drp EYE-BOTH DAILY amlodipine 10 mg tablet 10 mg PO DAILY tizanidine 2 mg tablet 2 mg PO BEDTIME desonide 0.05 % cream 1 applic topical BEDTIME potassium gluconate 595 mg (99 mg) tablet 595 mg PO DAILY cholecalciferol (vitamin D3) 50 mcg (2,000 unit) capsule 50 mcg PO BID clobetasol 0.05 % solution topical pantoprazole 20 mg tablet,delayed release (DR/EC) 20 mg PO DAILY tacrolimus 0.1 % ointment 1 applic topical DAILY Prolia 60 mg/mL syringe 60 mg SUBCUT [id number] Referrals: Betty Perry MD [Primary Care Provider] - Stand Alone Forms: Patient Portal/API/Survey
[2024-05-21 12:09] LABS: Add Manual Diff / Slide Review NO; Basophils Absolute Auto 0 /uL (0-100); Basophils Percent Auto 0.5 % (0-2); Eosinophils Absolute Auto 100 /uL (0-450); Hematocrit 36.7 % (36-46); Hemoglobin 12.2 g/dL (12.0-16.0); Lymphocytes Absolute Auto 4200 /uL (1100-4500); Mean Corpuscular HGB Conc 33.3 % (30-36); Mean Corpuscular Hemoglobin 29.9 PG (26-34); Mean Corpuscular Volume 89.7 fL (80-100); Monocytes Absolute Auto 600 /uL (0-900); Monocytes Percent Auto 7.6 % (3-14); Neutrophils Absolute Auto 3600 /uL (1500-7000); Neutrophils Percent Auto 41.9 % (50-75); Platelet Count 216 X10^3/uL (150-400); Red Blood Cell Count 4.08 X10^6/uL (4.0-5.2); Red Cell Distribution Width 14.5 % (11.6-14.8); White Blood Cell Count 8.5 X10^3/uL (4.5-11.0)
[2024-05-21 12:16] LABS: Prothrombin Time 11.1 SECONDS (9.4-12.5)
[2024-05-21 12:19] LABS: PTT Partial Thromboplastin Tim 25 SECONDS (25.1-36.5)
[2024-05-21 12:22] LABS: Alanine Aminotransferase 19 IU/L (<35); Albumin 4.2 g/dL (3.5-5.0); Albumin Globulin Ratio 1.8 (1.0-2.8); Alkaline Phosphatase 59 U/L (38-126); Aspartate Aminotransferase 24 IU/L (14-36); BUN Creatinine Ratio 22.7 (6-22); Bilirubin Total 0.6 mg/dL (0.2-1.3); Blood Urea Nitrogen 20 mg/dL (7-17); Calcium 9.6 mg/dL (8.4-10.2); Carbon Dioxide 24 mmol/L (22-32); Chloride 103 mmol/L (98-107); Creatine Kinase 30 U/L (30-135); Estimated Glomerular Filt Rate > 60 mL/min (>60); Globulin 2.4 g/dL (1.7-4.1); Glucose 106 mg/dL (80-110); HEMOLYSIS < 15 (0-50); Lipase 22 U/L (23-300); Magnesium 1.8 mg/dL (1.6-2.3); Potassium 3.8 mmol/L (3.4-5.1); Sodium 136 mmol/L (137-145); Total Protein 6.6 g/dL (6.3-8.2)
[2024-05-21 12:33] LABS: NT-proBNP (BNP-Adult 18+) 2690 pg/mL (<450); Troponin I < 0.012 ng/mL (0.01-0.034)
[2024-05-21] MEDS: METOPROLOL IR 25 MG TABLET PO (13:12)
[2024-05-21] MEDS: FUROSEMIDE 40 MG/4 ML VIAL 20 MG IV (13:12)
[2024-05-21] MEDS: METOPROLOL TARTRATE 5 MG/5 ML INJ IV (13:13)
--- NOTE | 2024-05-21 13:55 | P.CALLCOV_ITS ---
Call Coverage Note Note Date of Patient Contact: 05/21/24 Time of Patient Contact: 13:40 Narrative of Care Provided: 84 F who presented with chest pressure and possibly new diagnosis of atrial fibrillation. Prior TTE reviewed from 07/2023 which showed probable diastolic dyfunction. Her rate and symptoms improved with oral metoprolol. Bedside ultrasound performed by me shows a grossly normal EF today. Discussed with patient continued observation vs discharge home, and patient has elected for discharge home. Recommend 25 mg BID metoprolol succinate on discharge, along with apixaban 5 mg BID for anticoagulation. Instructed patient at bedside that she can increase to 50 mg BID if her HR is up and BP is still elevated. She has an [employer] watch and has been dealing with elevated BP since a reduction in dose of amlodipine with PCP. She can follow up with PCP for outpatient cardiology referral and outpatient full echocardiogram. Full consult note to follow.
--- NOTE | 2024-05-21 14:04 | PM.CN ---
History of Present Illness Consult details Date Patient Seen: 05/21/24 Time Patient Seen: 13:40 Chief complaint: Afib Reason for consult: afib with RVR Requesting provider: Shantell Briseno Narrative: This is an 84-year-old female with a past medical history of hypertension and nephrolithiasis who presented to the emergency room after her apple watch showed an elevated heart rate and probable atrial fibrillation. She thinks that this is possibly being going on for a while, but this morning with the rapid heart rate she did get intermittent chest pressure which has subsequently resolved. She denies any dyspnea on exertion, lower extremity edema, or orthopnea. In the emergency room, she initially had elevated heart rates, EKG confirms an AFib with RVR. She was given an IV metoprolol dose and an oral metoprolol tartrate and Medicine was asked to evaluate for admission. Given her elevated proBNP I went to the emergency room to perform bedside sonogram to evaluate her EF, which did appear grossly normal, but at that time her heart rate was markedly better in the 80s to 90s on the telemetry and her symptoms had resolved. I discussed with the patient given her negative troponin, EKG findings, and improvement in heart rate that we could admit her to the hospital for further observation or discharge home, and the patient elected for discharge home. Meds Home Medications and Allergies Home Medications Medication Instructions Recorded Confirmed Type calcium carbonate 500 mg PO DAILY ##0 09/30/11 05/01/24 History Fish Oil 1,000 mg PO QDAY #0 tabs 01/05/16 05/01/24 History biotin 2,500 mcg capsule 5,000 mcg PO BID ##0 01/05/16 05/01/24 History losartan 50 mg tablet 50 mg PO QDAY ##0 01/05/16 05/01/24 History bupropion HCl 100 mg tablet,12 hr 100 mg PO DAILY 08/24/17 05/01/24 History sustained-release docusate sodium 100 mg capsule 100 mg PO BID 08/24/17 05/01/24 History potassium gluconate 595 mg (99 mg) 595 mg PO DAILY 03/15/20 05/01/24 History tablet clobetasol 0.05 % scalp solution ml topical 09/28/21 05/01/24 History pantoprazole 20 mg tablet,delayed 20 mg PO DAILY 09/28/21 05/01/24 History release amlodipine 10 mg tablet 10 mg PO DAILY 01/23/22 05/01/24 History cyclosporine 0.05 % eye drops in a 1 drp EYE-BOTH DAILY 01/23/22 05/01/24 History dropperette (Restasis) tizanidine 2 mg tablet 2 mg PO BEDTIME 08/21/22 05/01/24 History cholecalciferol (vitamin D3) 50 50 mcg PO BID 11/15/22 05/01/24 History mcg (2,000 unit) capsule tacrolimus 0.1 % topical ointment 1 applic topical DAILY 04/16/23 05/01/24 History celecoxib 200 mg capsule (Celebrex) 200 mg PO QDAY #90 caps 05/16/23 05/01/24 Rx estradiol 0.01% (0.1 mg/gram) 1 g vaginal 2XW #42.5 grams 06/05/23 05/01/24 Rx vaginal cream (Estrace) desonide 0.05 % topical cream 1 applic topical BEDTIME 07/18/23 05/01/24 History ketoconazole 2 % shampoo topical 08/16/23 05/01/24 History doxazosin 8 mg tablet,extended 8 mg PO QAM 09/17/23 05/01/24 History release 24 hr (Cardura XL) tizanidine 2 mg tablet 2 mg PO Q6-8H PRN Pain 09/17/23 05/01/24 History denosumab 60 mg/mL subcutaneous 60 mg SUBCUT [id number] 02/22/24 05/01/24 History syringe (Prolia) tramadol 50 mg tablet 50 mg PO Q8H PRN pain (scale score 03/14/24 05/01/24 Rx 7-10) #7 tabs cefdinir 300 mg capsule 300 mg PO BID #14 caps 04/04/24 05/01/24 Rx tamsulosin 0.4 mg capsule 0.4 mg PO DAILY #20 caps 04/11/24 05/01/24 Rx apixaban 5 mg tablet (Eliquis) 5 mg PO BID #60 tabs 05/21/24 Rx furosemide 20 mg tablet 20 mg PO DAILY #30 tabs 05/21/24 Rx metoprolol tartrate 25 mg tablet 25 mg PO BID #60 tabs 05/21/24 Rx potassium chloride 8 mEq 8 meq PO DAILY #30 caps 05/21/24 Rx capsule,extended release Allergies Allergy/AdvReac Type Severity Reaction Status Date / Time doxycycline Allergy Intermediate Hives Verified 05/01/24 09:13 lisinopril Allergy Intermediate Headache Verified 05/01/24 09:13 pimecrolimus [From Elidel] Allergy Intermediate BURN SKIN Verified 05/01/24 09:13 lactose Allergy Mild RASH Verified 05/01/24 09:13 latex Allergy Mild ITCH Verified 05/01/24 09:13 aspirin AdvReac Mild N/V Verified 05/01/24 09:13 hydrocodone AdvReac Mild N/V Verified 05/01/24 09:13 oxycodone AdvReac Mild N/V Verified 05/01/24 09:13 Review of Systems Review of Systems Narrative: All other systems reviewed with the patient and are negative unless otherwise stated. Exam Vital Signs (past 8 hours): - 05/21/24 11:20 05/21/24 11:38 05/21/24 12:00 Temperature 98 F Pulse Rate 126 H 128 H 102 H Respiratory Rate 96 H 18 17 Blood Pressure 152/91 H 153/91 H 138/92 H Pulse Oximetry 100 97 95 Oxygen Delivery Method Room Air 05/21/24 12:30 05/21/24 13:01 Temperature Pulse Rate 93 H 102 H Respiratory Rate 10 L 18 Blood Pressure 138/90 150/90 H Pulse Oximetry 93 95 Oxygen Delivery Method Room Air Oxygen Delivery Method Room Air Narrative Exam Narrative: General:? Patient is well developed and well nourished, in no distress at this time. HEENT:? Normocephalic, atraumatic, extraocular muscles intact, oral pharynx is clear and mucous membranes are moist. Neck: supple and symmetric, trachea is midline, no cervical adenopathy. Negative for JVD Chest:? Normal AP diameter and contour without kyphoscoliosis, no tachypnea, equal chest rise bilaterally. Some lateral chest wall tenderness with palpation. Lungs:? CTA b/l no wheezing rhonchi or rales. Cardio:? Irregularly irregular rhythm with a normal rate, no murmurs, rubs, or gallops Abdomen: S NT ND. Musculoskeletal:? Muscle strength and tone are equal within normal limits, no deformity. Extremities: No edema or joint effusions. No cyanosis or clubbing. Skin:? Pale,? Warm to touch,dry and intact without rashes, ulcerations or petechiae.? Neuro:? Alert and orientated x3,? sensation to touch intact in all extremities, no gross deficits noted of cranial nerves. Psych:? Patient has a well-kept appearance, appropriate affect, mental status attitude thought context and judgment are appropriate for age. Objective ECG Impression: Atrial flutter with variable AV block, no evidence for acute ischemia Imaging Echo: My impression: Bedside sonogram performed by me. No gross wall motion abnormalities and grossly normal EF. Limited somewhat due to rib shadowing. Labs 05/21/24 12:00 05/21/24 12:00 Labs: Laboratory Results - last 24 hr 05/21/24 12:00 WBC 8.5 RBC 4.08 Hgb 12.2 Hct 36.7 MCV 89.7 MCH 29.9 MCHC 33.3 RDW 14.5 Plt Count 216 Neut % (Auto) 41.9 L Lymph % (Auto) 49.0 H Mercer % (Auto) 7.6 Eos % (Auto) 1.0 L Baso % (Auto) 0.5 Neut # (Auto) 3600 Lymph # (Auto) 4200 Mercer # (Auto) 600 Eos # (Auto) 100 Baso # (Auto) 0 PT 11.1 INR 1.0 APTT 25 L Sodium 136 L Potassium 3.8 Chloride 103 Carbon Dioxide 24 BUN 20 H Creatinine 0.88 Estimated GFR > 60 BUN/Creatinine Ratio 22.7 H Glucose 106 Calcium 9.6 Magnesium 1.8 Total Bilirubin 0.6 AST 24 ALT 19 Alkaline Phosphatase 59 Total Creatine Kinase 30 Troponin I < 0.012 NT-Pro-B Natriuret Pep 2690 H Total Protein 6.6 Albumin 4.2 Globulin 2.4 Albumin/Globulin Ratio 1.8 Lipase 22 L PFSH Medical History Degenerative joint disease of knee Osteoarthritis Fibromyalgia Degenerative joint disease of foot, right Hip arthritis Left nephrolithiasis History of UTI 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 Atrial fibrillation and flutter, paroxysmal, with RVR. RVR now resolved. 2. HTN 3. Chronic diastolic heart failure Plan - 84 F who presented with chest pressure and possibly new diagnosis of atrial fibrillation. Prior TTE reviewed from 07/2023 which showed probable diastolic dyfunction. Her rate and symptoms improved with oral metoprolol given in the emergency room. Troponin is negative and very low probability of ACS with no ischemic changes on EKG. Bedside ultrasound performed by me shows a grossly normal EF today. Discussed with patient continued observation vs discharge home, and patient has elected for discharge home. Recommend 25 mg BID metoprolol succinate on discharge, along with apixaban 5 mg BID for anticoagulation. Instructed patient at bedside that she can increase to 50 mg BID if her HR is up and BP is still elevated. She has an [employer] watch and has been dealing with elevated BP since a reduction in dose of amlodipine with PCP. She can follow up with PCP for outpatient cardiology referral and outpatient echocardiogram. Code: Full, surrogate is patient's spouse Dispo: Discharged home from the ER I have utilized all available immediate resources to obtain, update, or review the patient's current medications. Additional history obtained via discussions with the ER provider. These discussions contributed to the creation of the above assessment and plan. I have reviewed patient's presenting documentation, labs, and imaging personally. Time-Based Coding :: [TOTAL MINUTES] spent with patient and on the chart (including review of chart, obtaining history, exam, reviewing outside data, placing orders, documenting exam and treatment plan, and counseling patient) on [DATE].
== END 2024-05-21 16:41 | disposition home or self-care (01) ==
PROVIDERS: Emergency Provider Emergency Medicine; PCP Internal Medicine
DX: I48.20 Chronic atrial fibrillation, unspecified (principal); I50.9 Heart failure, unspecified; R00.0 Tachycardia, unspecified
CPT/HCPCS: 36415; 71045; 80053; 81003; 82550; 83690; 83735; 83880; 84484; 85025; 85610; 85730; 93005; 96374; 96375; 99284; 99291; J1940

== ENCOUNTER → 2024-06-23 12:29 | Outpatient (CLI) | payer MEDICARE, OTHER, SELFPAY ==
--- NOTE | 2024-06-23 12:30 | DI.US.S_ITS ---
PROCEDURE: US RENAL COMPLETE INDICATIONS: 84 y/o F s/p left ureteroscopy for stone, eval for hydro. TECHNIQUE: Real-time scanning was performed of the kidneys and bladder, with image documentation. COMPARISON: None. FINDINGS: Kidneys: Right kidney measures 10.6 cm long; left kidney measures 12.7 cm long. Right renal cortical thickness is 1.0 cm; left renal cortical thickness is 1.1 cm. Renal cortical echotexture is normal. No hydronephrosis or nephrolithiasis. No suspicious solid mass lesions. Bladder: Pre-void bladder volume is 289 mL. Post-void residual is 0 mL. Pre-void images demonstrate no intraluminal masses or stones. On pre-void images, neither ureteral jets are noted with color Doppler interrogation. (Of note, ureteral jets may not be detectable in up to 25% of cases due to insufficient differences in specific gravity between ureteral and bladder urine). Miscellaneous: No free pelvic fluid. IMPRESSION: Unremarkable exam. Dictated by: Sally Ch M.D. on 06/23/2024 at 16:07 Approved by: Sally Ch M.D. on 06/23/2024 at 16:09
== END ==
PROVIDERS: PCP Internal Medicine; Referring Provider Internal Medicine; Visit Provider Urology
DX: N20.1 Calculus of ureter (principal)
CPT/HCPCS: 76770

== ENCOUNTER → 2024-07-01 10:35 | Outpatient (CLI) | payer MEDICARE, OTHER, SELFPAY ==
--- NOTE | 2024-07-01 10:37 | DI.ECHO.S_ITS ---
[facility] : : [id number] [place] [address] : : [id number] : : Phone: [phone] Echocardiogram Report + + :Name: LAURA MULLEN Study Date: 07/01/2024 Height: 59 in : :[facility] ReadingLocation: Weight: 130 lb : : Gender: Female BSA: 1.5 m2 : :: 1940 Age: 84 yrs BP: 176/103 mmHg: :Reason For Study: ATRIAL FIBRILLATION : :Ordering Physician: IAN, : :AUBRIE PARKER Performed By: Mehrdad Ames : :Referring: AUBRIE SOSA : + + Interpretation Summary The left ventricle is normal in size. Left ventricular ejection fraction is estimated to be 60 +/- 5%. Previous LVEF 55 to 60%. The right ventricle is normal in size and function. The left atrium is severely dilated. The left atrium has remained unchanged in size since the prior echo exam. There is moderate mitral regurgitation. Previously mild MR. There is moderate tricuspid regurgitation. Previously trivial TR. The right ventricular systolic pressure is estimated to be at least 65 mmHg based on an estimated right atrial pressure of 15 mm Hg. Previously 33 mmHg. Compared to the prior echo exam, there has been an increase in TR severity. Compared to the prior echo exam, there has been an increase in the severity of pulmonary hypertension. The patient was in atrial fibrillation with heart rates between 74-115 bpm during the exam. Procedure: A two-dimensional transthoracic echocardiogram with color flow and Doppler was performed. The study quality was technically good. Comparison is made with the echocardiogram of 08/02/2023. The patient was in atrial fibrillation with heart rates between 74-115 bpm during the exam. Left Ventricle: The left ventricle is normal in size. There is normal left ventricular wall thickness. There is no thrombus. Left ventricular ejection fraction is estimated to be 60 +/- 5%. There are no focal wall motion abnormalities. Diastolic function could not be accurately assessed due to atrial fibrillation. Right Ventricle: The right ventricle is normal in size and function. Atria: The left atrium is severely dilated. The left atrium has remained unchanged in size since the prior echo exam. The right atrium is mildly dilated. There is no Doppler evidence for an interatrial shunt. Mitral Valve: There is mild mitral annular calcification. The mitral valve leaflets appear mildly thickened, but open well. There is moderate mitral regurgitation. Aortic Valve: The aortic valve is trileaflet. The aortic valve opens well. The aortic valve is slightly calcified. No aortic regurgitation is present. Tricuspid Valve: The tricuspid valve is normal. There is moderate tricuspid regurgitation. The right ventricular systolic pressure is estimated to be at least 65 mmHg based on an estimated right atrial pressure of 15 mm Hg. Compared to the prior echo exam, there has been an increase in TR severity. Compared to the prior echo exam, there has been an increase in the severity of pulmonary hypertension. Pulmonic Valve: The pulmonic valve leaflets are thin and pliable; valve motion is normal. There is trace pulmonic regurgitation. Great Vessels: The aortic root is normal size. The dimensions of the ascending aorta are normal. The pulmonary artery is normal size. The IVC is dilated (diameter is greater than 2.1 cm) and it collapses less than 50% with a sniff. This suggests a high right atrial pressure of 15 mm Hg. Pericardium/ Pleura There is no pericardial effusion. There is no pleural effusion. MMode/2D Measurements & Calculations LVIDd: 4.1 cm LVOT diam: 1.8 cm LVIDs: 2.7 cm Ao root diam: 3.3 cm FS: 33.6 % asc Aorta Diam: 3.6 cm EPSS: 0.75 cm Ao Arch Diam (Prox Trans): 1.5 cm IVSd: 1.0 cm LVPWd: 0.95 cm LV salazar. diameter/BSA (cm/m^2): 2.7 LV sys. diameter/BSA (cm/m^2): 1.8 LA A2 area: 26.4 cm2 RA long axis: 5.0 cm LA A4 area: 28.2 cm2 RA area: 18.6 cm2 LA length (vol): 6.2 cm RA vol: 58.7 ml LA vol: 101.2 ml RA : 38.2 ml/m2 LA vol index: 65.9 ml/m2 IVC diam: 2.3 cm RVD1 (basal): 3.3 cm RVD2 (mid): 2.4 cm TAPSE: 1.6 cm Doppler Measurements & Calculations Ao V2 max: 91.9 cm/sec LVOT Max Rojas: 65.2 cm/sec Ao V2 mean: 70.1 cm/sec LV V1 max P.7 mmHg Ao max P.4 mmHg LV V1 VTI: 14.2 cm Ao mean P.1 mmHg CARMELINA(I,D): 1.7 cm2 Ao V2 VTI: 20.3 cm CARMELINA(V,D): 1.8 cm2 sev ratio: 0.70 CARMELINA indexed to BSA (cm^2/m^2): 1.1 TR max rojas: 354.9 cm/sec SV(LVOT): 35.2 ml TR max P.4 mmHg PA V2 max: 69.3 cm/sec PA V2 mean: 47.5 cm/sec PA mean P.0 mmHg PA pr(Accel): 13.9 mmHg Reading Physician:12:16 PM
== END ==
PROVIDERS: PCP Internal Medicine; Referring Provider Internal Medicine; Visit Provider Family Medicine
DX: I48.91 Unspecified atrial fibrillation (principal); I08.1 Rheumatic disorders of both mitral and tricuspid valves
CPT/HCPCS: 93306

== ENCOUNTER → 2024-07-04 10:17 | Outpatient (CLI) | payer MEDICARE, OTHER, SELFPAY ==
--- NOTE | 2024-07-04 10:20 | DI.CT.S_ITS ---
PROCEDURE: CT ABDOMEN PELVIS W CON INDICATIONS: RLL AND LLQ ABD PAIN TECHNIQUE: After the administration of intravenous contrast, axial sections acquired from the lung bases to the pubic symphysis. Coronal and sagittal reformats were performed. For radiation dose reduction, the following was used: automated exposure control, adjustment of mA and/or kV according to patient size. COMPARISON: [facility], CT, CT ABDOMEN PELVIS W CON, 02/13/2024, 12:16. [facility], CT, CT ABDOMEN PELVIS W CON, 10/24/2022, 14:03. FINDINGS: Image quality: Diagnostic. Lower Chest: No significant findings. ABDOMEN: Liver: No solid mass. Gallbladder: No radiopaque gallstones or wall thickening. Biliary ducts: No biliary dilation. Pancreas: No ductal dilation. Spleen: Size is within normal limits. Adrenal Glands: No adrenal nodules. Kidneys and Ureters: No hydronephrosis. No solid mass. No complex renal cystic lesion which requires follow up. Scattered bilateral punctate renal collecting system calculi bilaterally, none of which appear obstructive. No ureteral stone is seen. Retroperitoneal phleboliths are identified along the course of both ureters but given the absence of ureteral dilatation or inflammation none of these are considered likely to represent distal ureteral stones. Stomach and Bowel: Normal colonic caliber, without significant wall thickening. Peritoneum: No abnormal intraperitoneal fluid. No free air. Ventral Wall: No significant ventral hernia. Abdominal Nodes: No retroperitoneal or mesenteric adenopathy by size criteria. Vessels: Aorta and inferior vena cava are normal in size. PELVIS: Pelvic Organs: Unremarkable. Bladder: No bladder wall thickening, accounting for underdistention. Pelvic Nodes: No enlarged lymph nodes. Miscellaneous: No inguinal hernias are seen. A normal or abnormal appendix is not seen. There is mild diverticulosis at the sigmoid colon, but no acute diverticulitis. Bones: No aggressive osseous abnormality. IMPRESSION: 1. No urinary tract obstructive stone, inflammation, or bladder abnormality. 2. Colonic diverticulosis is moderate in severity but no definite acute diverticulitis is currently associated. 3. A normal or abnormal appendix cannot be located. No secondary CT evidence of acute appendicitis is found. Dictated by: Leonidas Mckenzie M.D. on 07/04/2024 at 16:50 Approved by: Leonidas Mckenzie M.D. on 07/04/2024 at 16:55
[2024-07-04 11:24] LABS: Estimated Glomerular Filt Rate > 60 mL/min (>60)
[2024-07-04 11:35] LABS: Alanine Aminotransferase 22 IU/L (<35); Albumin 4.4 g/dL (3.5-5.0); Albumin Globulin Ratio 1.7 (1.0-2.8); Alkaline Phosphatase 80 U/L (38-126); Aspartate Aminotransferase 21 IU/L (14-36); BUN Creatinine Ratio 18.8 (6-22); Bilirubin Total 0.8 mg/dL (0.2-1.3); Blood Urea Nitrogen 15 mg/dL (7-17); Calcium 9.5 mg/dL (8.4-10.2); Carbon Dioxide 25 mmol/L (22-32); Chloride 106 mmol/L (98-107); Estimated Glomerular Filt Rate > 60 mL/min (>60); Globulin 2.6 g/dL (1.7-4.1); Glucose 104 mg/dL (70-99); HEMOLYSIS < 15 (0-50); Potassium 4.3 mmol/L (3.4-5.1); Sodium 140 mmol/L (137-145)
[2024-07-04 12:06] LABS: Thyroid Stimulating Hormone 0.604 uIU/mL (0.47-4.68)
== END ==
PROVIDERS: PCP Internal Medicine; Referring Provider Internal Medicine; Visit Provider Internal Medicine
DX: K57.30 Diverticulosis of large intestine without perforation or abscess without bleeding (principal); N20.0 Calculus of kidney; R10.31 Right lower quadrant pain; R10.32 Left lower quadrant pain; I48.19 Other persistent atrial fibrillation; Z79.899 Other long term (current) drug therapy
CPT/HCPCS: 36415; 74177; 80053; 82565; 84443; Q9967

== ENCOUNTER → 2024-07-10 13:51 | Outpatient (CLI) | payer MEDICARE, OTHER, SELFPAY | PROVIDERS: PCP Internal Medicine; Referring Provider Internal Medicine Cardiovascular Disease; Visit Provider Internal Medicine Cardiovascular Disease | DX: I48.19 Other persistent atrial fibrillation (principal); Z79.899 Other long term (current) drug therapy | CPT/HCPCS: 94060; 94726; 94729 ==

== ENCOUNTER → 2024-10-21 09:16 | Outpatient (CLI) | payer MEDICARE, OTHER, SELFPAY ==
[2024-10-21 11:27] LABS: Alanine Aminotransferase 23 IU/L (<35); Albumin 4.2 g/dL (3.5-5.0); Albumin Globulin Ratio 1.8 (1.0-2.8); Alkaline Phosphatase 66 U/L (38-126); Blood Urea Nitrogen 18 mg/dL (7-17); Calcium 9.5 mg/dL (8.4-10.2); Carbon Dioxide 27 mmol/L (22-32); Chloride 103 mmol/L (98-107); Estimated Glomerular Filt Rate > 60 mL/min (>60); Globulin 2.4 g/dL (1.7-4.1); Glucose 97 mg/dL (70-99); HEMOLYSIS < 15 (0-50); Potassium 4.1 mmol/L (3.4-5.1); Sodium 137 mmol/L (137-145); Total Protein 6.6 g/dL (6.3-8.2)
[2024-10-21 11:59] LABS: Thyroid Stimulating Hormone 0.031 uIU/mL (0.47-4.68)
== END ==
PROVIDERS: PCP Internal Medicine; Referring Provider Internal Medicine Cardiovascular Disease; Visit Provider Internal Medicine Cardiovascular Disease
DX: I48.19 Other persistent atrial fibrillation (principal); Z79.899 Other long term (current) drug therapy
CPT/HCPCS: 36415; 80053; 84443

== ENCOUNTER → 2024-12-02 11:20 | Outpatient (CLI) | payer MEDICARE, OTHER, SELFPAY ==
--- NOTE | 2024-12-02 11:22 | DI.RAD.S_ITS ---
PROCEDURE: XR DEXA AXIAL SKELETON INDICATIONS: OSTEOPOROSIS SCREENING COMPARISON: [facility], CR, XR DEXA AXIAL SKELETON, 08/09/2022, 11:08. FINDINGS: Lumbar Spine: Bone mineral density 1.176 g/cm2, T score 1.2. There is interval 13.2% increase in total lumbar spine bone mineral density. Left Femoral Neck: Bone mineral density 0.753 g/cm2, T score -0.9. There is interval 20.7% increase in left femoral neck bone mineral density. Left Hip: Bone mineral density 0.739 g/cm2, T score -1.7. There is interval 4.3% increase in total left hip bone mineral density. Fracture Risk Calculation (when applicable): 10-year fracture risk of a major osteoporotic fracture 14 percent and of a hip fracture 3.5 percent. (T score greater or equal to -1.0 to: NORMAL) (T score from -1.1 to -2.4: OSTEOPENIA) (T score less than or equal to -2.5: OSTEOPOROSIS) IMPRESSION: Osteopenia with increased 10 year fracture risk as above. Follow-up guidelines as follows: Osteoporosis: Consider a repeat DEXA and Vertebral Fracture Assessment (VFA) exam in 2 years or sooner if medically necessary, to reassess this patient's status. Osteopenia: Consider a repeat DEXA in 2-3 years to reassess this patient's status, or if there is a new clinical indication. Normal: Consider a repeat DEXA in 5 years or sooner, or if there is a new clinical indication. All treatment decisions require clinical judgment and consideration of individual patient factors, including patient preferences, comorbidities, previous drug use, risk factors not captured in the FRAX model (e.g., frailty, falls, vitamin D deficiency, increased bone turnover, interval significant decline in bone density ) and possible under- or over-estimation of fracture risk by FRAX. In addition, the NOF Guide recommends that FDA-approved medical therapies be considered in postmenopausal women and men age >= 50 years with a: * Hip or vertebral (clinical or morphometric) fracture * T-score of <=-2.5 at the spine or hip * Ten-year fracture probability by FRAX of >= 3% for hip fracture or >=20% for major osteoporotic fracture. Dictated by: Memo Shepard M.D. on 12/02/2024 at 15:47 Approved by: Memo Shepard M.D. on 12/02/2024 at 15:48
== END ==
PROVIDERS: PCP Internal Medicine; Referring Provider Internal Medicine; Visit Provider Internal Medicine
DX: M81.0 Age-related osteoporosis without current pathological fracture (principal)
CPT/HCPCS: 77080

== ENCOUNTER 2024-12-10 13:40 | Emergency (ER) | payer MEDICARE, OTHER, SELFPAY ==
[2024-12-10] VITALS (7 sets, daily range): BP systolic 163–190; BP diastolic 84–94; PULSE 67–88; RESP 14–34; TEMP 36.9–37.2; O2SAT 92–96; BMI 27.1
--- NOTE | 2024-12-10 13:50 | DI.RAD.S_ITS ---
PROCEDURE: XR CHEST 1V INDICATIONS: Chest Pain TECHNIQUE: One view of the chest was acquired. COMPARISON: [facility], CR, XR CHEST 1V, 05/21/2024, 11:26. FINDINGS: Surgical changes and devices: None. Lungs and pleura: Lungs are clear. No pleural effusions or pneumothorax. Mediastinum: Mediastinal contours appear normal. Heart size is normal. Bones and chest wall: No suspicious bony lesions. Overlying soft tissues appear unremarkable. IMPRESSION: No acute pulmonary process. Dictated by: Sally Ch M.D. on 12/10/2024 at 14:41 Approved by: Sally Ch M.D. on 12/10/2024 at 14:41
--- NOTE | 2024-12-10 13:56 | EKG_ITS ---
[address] [address] Test Date: 2024-12-10 Pat Name: Aubrie Fermin Department: [facility] Room: Gender: Female [employer]: ISIDRA : [id number] Requested By: Order Number: [id number] Reading MD: Carlo Xiong Measurements Intervals [place] Rate: 81 P: 64 NM: 182 QRS: -24 QRSD: 96 T: 9 QT: 392 QTc: 455 Interpretive Statements Normal sinus rhythm Electronically Signed On 12-10-2024 18:25:53 PDT by Carlo Xiong
--- NOTE | 2024-12-10 14:07 | DI.CT.S_ITS ---
PROCEDURE: CT ANGIO CHEST PE PROTOCOL INDICATIONS: thoracic back pain/n TECHNIQUE: After the administration of intravenous contrast, 2 mm thick sections acquired from the pulmonary apices to the posterior costophrenic angles. 3-dimensional maximum intensity projection (MIP) coronal and sagittal reformats were then acquired through the thorax. For radiation dose reduction, the following was used: automated exposure control, adjustment of mA and/or kV according to patient size. COMPARISON: None. FINDINGS: Image quality: Diagnostic. Pulmonary arteries: Main pulmonary artery is dilated at 3.5 centimeters. No intraluminal filling defects to suggest central pulmonary embolism. Lower Neck: No enlarged lymph nodes. Thyroid: No thyroid nodules which require sonographic follow up, per consensus guidelines. Axillae: No enlarged lymph nodes. Chest Wall: Unremarkable. Bones: Multilevel degenerative changes of the spine. Decreased osseous mineralization. Lungs and Pleura: No pneumothorax or pleural effusions. There is a 4 millimeter right upper lobe sub solid/ground-glass nodule (6/104). No pulmonary consolidations. Heart: Heart size is enlarged. No pericardial effusion. Thoracic Vessels: No aortic aneurysm. Mediastinum and Arlene: No enlarged lymph nodes. Esophagus: No wall thickening. No hiatal hernia. Upper Abdomen: Visualized upper abdomen solid organs and bowel loops appear normal. IMPRESSION: No pulmonary embolus. No acute cardiopulmonary process. Dilated main pulmonary artery, suggestive of pulmonary hypertension. Ground-glass/subsolid nodule measuring 4 millimeters in the right upper lobe. Based on Fleischner criteria, no follow-up is necessary. Dictated by: Keon De Leon M.D. on 12/10/2024 at 15:21 Approved by: Keon De Leon M.D. on 12/10/2024 at 15:31
[2024-12-10] MEDS: ACETAMINOPHEN IV 1,000 MG/100 ML VIAL 400 MG IV (14:14)
[2024-12-10 14:22] LABS: Add Manual Diff / Slide Review NO; Hematocrit 34.9 % (36-46); Hemoglobin 11.8 g/dL (12.0-16.0); Lymphocytes Absolute Auto 4100 /uL (1100-4500); Mean Corpuscular HGB Conc 33.9 % (30-36); Mean Corpuscular Hemoglobin 30.2 PG (26-34); Mean Corpuscular Volume 89.0 fL (80-100); Platelet Count 253 X10^3/uL (150-400)
[2024-12-10 14:29] LABS: INR 1.2 (0.9-1.3); Prothrombin Time 13.6 SECONDS (9.4-12.5)
[2024-12-10 14:32] LABS: PTT Partial Thromboplastin Tim 25 SECONDS (25.1-36.5)
[2024-12-10 14:33] LABS: Alanine Aminotransferase 18 IU/L (<35); Albumin 4.3 g/dL (3.5-5.0); Albumin Globulin Ratio 1.5 (1.0-2.8); Alkaline Phosphatase 70 U/L (38-126); Blood Urea Nitrogen 12 mg/dL (7-17); Calcium 9.1 mg/dL (8.4-10.2); Carbon Dioxide 25 mmol/L (22-32); Chloride 92 mmol/L (98-107); Creatine Kinase 39 U/L (30-135); Estimated Glomerular Filt Rate > 60 mL/min (>60); Globulin 2.8 g/dL (1.7-4.1); Glucose 104 mg/dL (70-99); HEMOLYSIS < 15 (0-50); Lipase 14 U/L (23-300); Magnesium 1.7 mg/dL (1.6-2.3); Potassium 4.0 mmol/L (3.4-5.1); Sodium 127 mmol/L (137-145); Total Protein 7.1 g/dL (6.3-8.2)
[2024-12-10 14:44] LABS: NT-proBNP (BNP-Adult 18+) 1040 pg/mL (<450); Troponin I < 0.012 ng/mL (0.01-0.034)
--- NOTE | 2024-12-10 16:56 | ED.BACK ---
HPI - Back Pain/Injury General Chief Complaint: Back Pain/Injury Stated Complaint: Upper back / neck pain Time Seen by Provider: 12/10/24 13:44 Source: patient, RN notes reviewed and old records reviewed Mode of arrival: Family Vehicle Limitations: no limitations History of Present Illness HPI Narrative: 84-year-old female history of atrial fibrillation on Eliquis hypertension, kidney stones, chronic musculoskeletal and joint pain including in her neck. Patient presents with a complaint of pain in her thoracic back between the scapula and thoracic spine. She states there was 1 location that is quite painful to touch. But she has increased pain with movement. She states she has chronic back pain she notes that it does sort of crossed across to the other side. She states this is worse than her typical. She denies fevers. States he has has a little bit of headache. Denies any nausea or vomiting. No vision changes no numbness tingling or weakness or difficulty with speech. No new GI or urinary symptoms. No shortness of breath. Patient has a any rashes or skin changes. She normally takes Tylenol with codeine at baseline but has not had any improvement. She has multiple allergies including aspirin, oxycodone and hydrocodone. Related Data Home Medications ?Medication ?Instructions ?Recorded ?Confirmed calcium carbonate 500 mg PO DAILY ##0 09/30/11 07/02/24 Fish Oil 1,000 mg PO QDAY #0 tabs 01/05/16 07/02/24 biotin 2,500 mcg capsule 5,000 mcg PO BID ##0 01/05/16 07/02/24 losartan 50 mg tablet 50 mg PO QDAY ##0 01/05/16 07/02/24 bupropion HCl 100 mg tablet,12 hr 100 mg PO DAILY 08/24/17 07/02/24 sustained-release docusate sodium 100 mg capsule 100 mg PO BID 08/24/17 07/02/24 potassium gluconate 595 mg (99 mg) 595 mg PO DAILY 03/15/20 07/02/24 tablet clobetasol 0.05 % scalp solution ml topical 09/28/21 07/02/24 pantoprazole 20 mg tablet,delayed 20 mg PO DAILY 09/28/21 07/02/24 release amlodipine 10 mg tablet 10 mg PO DAILY 01/23/22 07/02/24 cyclosporine 0.05 % eye drops in a 1 drp EYE-BOTH DAILY 01/23/22 07/02/24 dropperette (Restasis) tizanidine 2 mg tablet 2 mg PO BEDTIME 08/21/22 07/02/24 cholecalciferol (vitamin D3) 50 50 mcg PO BID 11/15/22 07/02/24 mcg (2,000 unit) capsule tacrolimus 0.1 % topical ointment 1 applic topical DAILY 04/16/23 07/02/24 desonide 0.05 % topical cream 1 applic topical BEDTIME 07/18/23 07/02/24 ketoconazole 2 % shampoo topical 08/16/23 07/02/24 doxazosin 8 mg tablet,extended 8 mg PO QAM 09/17/23 07/02/24 release 24 hr (Cardura XL) tizanidine 2 mg tablet 2 mg PO Q6-8H PRN Pain 09/17/23 07/02/24 denosumab 60 mg/mL subcutaneous 60 mg SUBCUT [id number] 02/22/24 07/02/24 syringe ([employer]) Previous Rx's ?Medication ?Instructions ?Recorded celecoxib 200 mg capsule (Celebrex) 200 mg PO QDAY #90 caps 05/16/23 tramadol 50 mg tablet 50 mg PO Q8H PRN pain (scale score 03/14/24 7-10) #7 tabs tamsulosin 0.4 mg capsule 0.4 mg PO DAILY #20 caps 04/11/24 apixaban 5 mg tablet (Eliquis) 5 mg PO BID #60 tabs 05/21/24 furosemide 20 mg tablet 20 mg PO DAILY #30 tabs 05/21/24 metoprolol tartrate 25 mg tablet 25 mg PO BID #60 tabs 05/21/24 potassium chloride 8 mEq 8 meq PO DAILY #30 caps 05/21/24 capsule,extended release estradiol 0.01% (0.1 mg/gram) 1 g vaginal 2XW #42.5 grams 10/20/24 vaginal cream (Estrace) lidocaine 5 % topical patch 1 patch topical DAILY PRN pain #30 12/10/24 ea Allergies Allergy/AdvReac Type Severity Reaction Status Date / Time doxycycline Allergy Intermediate Hives Verified 12/10/24 13:46 lisinopril Allergy Intermediate Headache Verified 12/10/24 13:46 pimecrolimus (From Elidel) Allergy Intermediate BURN SKIN Verified 12/10/24 13:46 lactose Allergy Mild RASH Verified 12/10/24 13:46 latex Allergy Mild ITCH Verified 12/10/24 13:46 aspirin AdvReac Mild N/V Verified 12/10/24 13:46 hydrocodone AdvReac Mild N/V Verified 12/10/24 13:46 oxycodone AdvReac Mild N/V Verified 12/10/24 13:46 Review of Systems Review of Systems ROS Unobtainable: All systems reviewed & are unremarkable except as noted in HPI and below Patient History Medical History Degenerative joint disease of knee Osteoarthritis Fibromyalgia Degenerative joint disease of foot, right Hip arthritis Left nephrolithiasis History of UTI 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 Carpal tunnel syndrome on both sides History of nephrolithiasis Sacral back pain Hypertension Surgical History Hx of cystoscopy (03/14/24) Status post right foot surgery (09/19/23) Hx of cystoscopy (2023) Hx of hand surgery History of hysterectomy H/O oophorectomy Family History Mother Cancer Social History household members: spouse alcohol intake: current Smoking Status: Unknown if ever smoked alcohol intake frequency: holidays/special occasions only Exam Narrative Exam Narrative: GEN: well nourished, well appearing elderly female, alert and oriented x 3, patient appears to be in moderate distress. HEENT: Atraumatic, pupils are equal round reactive to light, extraocular movements are intact, nares are clear, TMs are clear with no fluid, there is no conjunctival pallor. Throat is clear without any exudates, erythema, tonsillar enlargement or uvular deviation, no cervical vertebral tenderness HEART: Regular rate and rhythm without murmur, clicks, rubs. Pulses are equal bilateral upper and lower extremities. LUNGS:Lungs clear to auscultation, no wheezes, rales, crackles, chest moves symmetrically, no tachypnea accessory muscle use. ABD:bowel sounds normal, soft, non-tender, no guarding, rebound, rigidity, no masses noted, no hepatosplenomegaly, no pulsatile bruit or mass :No CVA tenderness BACK: No cervical, thoracic or lumbar vertebral point tenderness. Patient does have some tenderness in the soft tissue just to the medial portion of the right scapula. There was no warmth erythema or skin changes. There was no wounds. There was no vesicles or blisters. Patient has patient has a mildly decreased range of motion. Patient has a normal range of motion of bilateral upper extremities. Normal sensation with 2+ radial pulses bilaterally. MSCL: Non-tender, no muscle atrophy, muscles strength 5/5 upper and lower extremities, full range of motion, normal gait NEURO:CN 2-12 intact, sensation normal. Initial Vital Signs Initial Vital Signs: Vital Signs Temperature 99.0 F 12/10/24 13:46 Pulse Rate 88 12/10/24 13:46 Respiratory Rate 14 12/10/24 13:46 Blood Pressure 190/94 H 12/10/24 13:46 Pulse Oximetry 95 12/10/24 13:46 Oxygen Delivery Method Room Air 12/10/24 13:46 Course Orders Ordered: ED Orders 12/10/24 13:50 XR chest 1V Stat EKG-12 Lead Stat 12/10/24 13:58 Complete Blood Count AUTO DIFF Stat Comprehensive Metabolic Panel Stat Lipase Stat Magnesium Stat NT-proBNP (BNP-Adult 18+) Stat PTT Partial Thromboplastin Roman Stat Prothrombin Time INR Stat Troponin & CK Cardiac Panel Stat 12/10/24 14:07 CT angio chest PE protocol Stat 12/10/24 16:48 Trop I [Troponin I] Stat Discontinued Medications Guaifenesin/Codeine Phosphate (Codeine/Guaifenesin Liquid 5 Ml Udc) 10 ml PO NOW ONE Stop: 12/10/24 17:26 Last Admin: 12/10/24 17:46 Dose: 10 ml Acetaminophen (Ofirmev) 1,000 mg in 100 mls @ 400 mls/hr IV NOW ONE Stop: 12/10/24 14:20 Last Infusion: 12/10/24 14:40 Dose: Infused Documented By: Admin: 12/10/24 14:14 Dose: 400 mls/hr Documented By: RAIZA Lidocaine (Lidocaine 5% Patch) 1 each TOP NOW ONE Stop: 12/10/24 17:46 Last Admin: 12/10/24 17:45 Dose: 1 each Vital Signs Vital signs: Vital Signs - 8 hr 12/10/24 13:46 12/10/24 16:59 12/10/24 16:59 Temperature 99.0 F Pulse Rate 88 72 Respiratory Rate 14 Blood Pressure 190/94 H 163/86 H Pulse Oximetry 95 92 Oxygen Delivery Method Room Air 12/10/24 17:00 12/10/24 17:05 12/10/24 17:15 Temperature 98.4 F Pulse Rate 69 Respiratory Rate Blood Pressure 175/91 H Pulse Oximetry Oxygen Delivery Method 12/10/24 17:30 12/10/24 17:30 12/10/24 18:00 Temperature Pulse Rate 67 Respiratory Rate 34 H Blood Pressure 178/84 H 165/90 H Pulse Oximetry 96 Oxygen Delivery Method 12/10/24 18:00 Temperature Pulse Rate 68 Respiratory Rate 29 H Blood Pressure Pulse Oximetry 96 Oxygen Delivery Method MDM - Back Pain/Injury Lab Data 12/10/24 13:58 12/10/24 13:58 Labs: Lab Results 12/10/24 12/10/24 Range/Units 13:58 17:10 WBC 13.0 H (4.5-11.0) X10^3/uL RBC 3.92 L (4.0-5.2) X10^6/uL Hgb 11.8 L (12.0-16.0) g/dL Hct 34.9 L (36-46) % MCV 89.0 (80-100) fL MCH 30.2 (26-34) PG MCHC 33.9 (30-36) % RDW 13.2 (11.6-14.8) % Plt Count 253 (150-400) X10^3/uL Neut % (Auto) 58.0 (50-75) % Lymph % (Auto) 31.4 (25-40) % Graham % (Auto) 9.1 (3-14) % Eos % (Auto) 0.2 L (2-4) % Baso % (Auto) 1.3 (0-2) % Neut # (Auto) 7600 H (0770-4033) /uL Lymph # (Auto) 4100 (0087-0252) /uL Graham # (Auto) 1200 H (0-900) /uL Eos # (Auto) 0 (0-450) /uL Baso # (Auto) 200 H (0-100) /uL PT 13.6 H (9.4-12.5) SECONDS INR 1.2 (0.9-1.3) APTT 25 L (25.1-36.5) SECONDS Sodium 127 L (137-145) mmol/L Potassium 4.0 (3.4-5.1) mmol/L Chloride 92 L (98-107) mmol/L Carbon Dioxide 25 (22-32) mmol/L BUN 12 (7-17) mg/dL Creatinine 0.85 (0.52-1.04) mg/dL Estimated GFR > 60 (>60) mL/min BUN/Creatinine Ratio 14.1 (6-22) Glucose 104 H (70-99) mg/dL Calcium 9.1 (8.4-10.2) mg/dL Magnesium 1.7 (1.6-2.3) mg/dL Total Bilirubin 1.0 (0.2-1.3) mg/dL AST 24 (14-36) IU/L ALT 18 (<35) IU/L Alkaline Phosphatase 70 (38-126) U/L Total Creatine Kinase 39 (30-135) U/L Troponin I < 0.012 < 0.012 (0.01-0.034) ng/mL NT-Pro-B Natriuret Pep 1040 H (<450) pg/mL Total Protein 7.1 (6.3-8.2) g/dL Albumin 4.3 (3.5-5.0) g/dL Globulin 2.8 (1.7-4.1) g/dL Albumin/Globulin Ratio 1.5 (1.0-2.8) Lipase 14 L (23-300) U/L ECG Data Attestation: I personally reviewed and interpreted this ECG as follows: Prior ECG tracings: available for review Interpretation: Sinus rhythm, rate 81 NJ 182 QRS of 96 QTC of 455. No acute ST-elevation. Patient has prior from 05/21/2024, no acute change. MDM Narrative Medical decision making narrative: Labs show white count of 13, hemoglobin 11.8 platelets are 253. INR is 1.2. Chemistries shows sodium 127 was 137 on October 21, 2024 chloride was 92 with a potassium of 4 CO2 is 25 with a BUN 12 and creatinine 0.85 glucose is 104 LFTs are normal troponins less than 0.012 with a BNP of 1040 patient has prior from May of 2024 was 2690. Lipase was normal. Repeat troponin is less than 0.012 Patient had chest x-ray showed no acute pulmonary process. EKG shows sinus rhythm rate [address] angio chest to evaluate for potential vascular, PE, changes to the bone as she has no bony tenderness but pain in her back with a known history of a degenerative disease. Shows no PE, no acute cardiopulmonary process, dilated main artery suggesting pulmonary hypertension, ground-glass/subsolid nodule measuring 4 mm right upper lobe. Based on Fleischner criteria no follow up is necessary. Patient received acetaminophen IV patient had quite a bit improvement in pain but then started to return. She is too soon for repeat dose we will give a dose of codeine as well as lidocaine patch to the affected area. She has been taking Tylenol 3 half tablets at home. Family notes that she had a full tablet last night which seemed to be quite helpful. I am able to reproduce her pain with palpation. It is not over the spine itself. I do not see any obvious rash or skin changes at this time but discussed with the patient and family to watch for this. They note that they also stopped her Celebrex about 2 weeks ago this seems to be exacerbating her pain as well. After discussion felt appropriate for discharge patient we would like to return home as well. She notes she has a muscle relaxer, she has Tylenol with codeine, we will give a prescription for lidocaine patches. Reviewed her CT findings as well. Discharge Plan Departure Patient Disposition: Home Clinical Impression: Back pain, thoracic, Lung nodule Activity Restrictions/Additional Instructions: Your workup today does not show any signs of blood clot, no obvious changes to the lungs are over there than a small subcentimeter nodule. Your main pulmonary artery does not appear to be little dilated at 3.5 cm this can suggest pulmonary hypertension. Share this is information to share with your primary care physician. Continue with your home medications. If you find a lidocaine patch helpful you can continue with this. Prescription sent to [facility] in [place]. Please return for fevers, new rash or skin changes, new chest pain or shortness of breath, persistent vomiting, lightheadedness or passing out, or other new or concerning changes. Prescriptions: New lidocaine 5 % adhesive patch,medicated 1 patch topical DAILY PRN (Reason: pain) Qty: 30 0RF Rx Instructions: leave on most painful area for up to 12 hrs No Action ketoconazole 2 % shampoo topical calcium carbonate 500 mg calcium (1,250 mg) Tablet 500 mg PO DAILY Qty: 0 biotin 2,500 MCG capsule 5,000 mcg PO BID Qty: 0 Fish Oil 1,000 mg PO QDAY Qty: 0 losartan 50 MG tablet 50 mg PO QDAY Qty: 0 celecoxib [Celebrex] 200 mg capsule 200 mg PO QDAY Qty: 90 1RF estradiol [Estrace] 0.01 % (0.1 mg/gram) cream 1 g vaginal 2XW Qty: 42.5 5RF Rx Instructions: Insert 1 g intravaginally at bedtime times 12 days, then insert 1 g intravaginally twice weekly at bedtime as directed. tizanidine 2 mg Tablet 2 mg PO Q6-8H PRN (Reason: Pain) Cardura XL 8 mg Tablet Extended Release 24hr 8 mg PO QAM Rx Instructions: must administer with breakfast furosemide 20 mg tablet 20 mg PO DAILY Qty: 30 0RF potassium chloride 8 mEq capsule, extended release 8 meq PO DAILY Qty: 30 0RF metoprolol tartrate 25 mg tablet 25 mg PO BID Qty: 60 0RF Eliquis 5 mg tablet 5 mg PO BID Qty: 60 0RF tramadol 50 mg tablet 50 mg PO Q8H PRN (Reason: pain (scale score 7-10)) Qty: 7 0RF tamsulosin 0.4 mg capsule 0.4 mg PO DAILY Qty: 20 0RF Rx Instructions: take one tab daily for stent discomfort bupropion HCl 100 mg tablet extended release 12 hr 100 mg PO DAILY docusate sodium 100 mg capsule 100 mg PO BID cyclosporine [Restasis] 0.05 % dropperette 1 drp EYE-BOTH DAILY amlodipine 10 mg tablet 10 mg PO DAILY tizanidine 2 mg tablet 2 mg PO BEDTIME desonide 0.05 % cream 1 applic topical BEDTIME potassium gluconate 595 mg (99 mg) tablet 595 mg PO DAILY cholecalciferol (vitamin D3) 50 mcg (2,000 unit) capsule 50 mcg PO BID clobetasol 0.05 % solution topical pantoprazole 20 mg tablet,delayed release (DR/EC) 20 mg PO DAILY tacrolimus 0.1 % ointment 1 applic topical DAILY Prolia 60 mg/mL syringe 60 mg SUBCUT [id number] Referrals: Betty Perry MD [Primary Care Provider, Internal Medicine] Stand Alone Forms: Patient Portal/API
[2024-12-10 17:40] LABS: Troponin I < 0.012 ng/mL (0.01-0.034)
[2024-12-10] MEDS: LIDOCAINE 5% PATCH 1 EACH TOP (17:45)
[2024-12-10] MEDS: CODEINE/guaiFENesin LIQUID 5 ML UDC 10 ML PO (17:46)
== END 2024-12-10 18:25 | disposition home or self-care (01) ==
PROVIDERS: Emergency Provider Emergency Medicine; PCP Internal Medicine
DX: M54.6 Pain in thoracic spine (principal); R91.1 Solitary pulmonary nodule; I10 Essential (primary) hypertension; Z79.01 Long term (current) use of anticoagulants
CPT/HCPCS: 36415; 71045; 71275; 80053; 82550; 83690; 83735; 83880; 84484; 85025; 85610; 85730; 93005; 96365; 99284; J0131; Q9967

== ENCOUNTER → 2025-01-15 07:14 | Outpatient (CLI) | payer MEDICARE, OTHER, SELFPAY ==
--- NOTE | 2025-01-15 07:16 | DI.NM.S_ITS ---
PROCEDURE: NM REYNALDO PERF SPECT SINGLE STUDY Resting myocardial perfusion SPECT, with gated imaging and ejection fraction RADIOPHARMACEUTICAL: 26.5 mCi 99m-Tc sestamibi intravenously. INDICATIONS: Chest discomfort TECHNIQUE: Radiopharmaceutical was injected at rest. SPECT images were obtained. SPECT myocardial perfusion images were displayed in short axis, horizontal long axis, and vertical long axis views. Gated images were reviewed using [email or web address] software. COMPARISON: None. FINDINGS: Raw data: There is good tracer uptake by the myocardium. No significant motion artifacts. Left ventricle function: Gated images demonstrate left ventricle wall thickening. No segmental wall motion abnormalities. No transient ischemic dilation. Left ventricle resting end-diastolic volume is 72 mL. Left ventricle resting ejection fraction is 90%; normal values are above 45%. Myocardial perfusion: There is normal distribution of activity in the left and right ventricular myocardium. No perfusion defects. IMPRESSION: Normal resting only perfusion images with normal systolic function. Stress portion not done as the patient didn't show up and never rescheduled. Dictated by: Mitzi Myles MD on 03/02/2025 at 14:12 Approved by: Mitzi Myles MD on 03/02/2025 at 14:13
== END ==
LOC: NUCM 07:15
PROVIDERS: PCP Internal Medicine; Referring Provider Internal Medicine; Visit Provider Internal Medicine Cardiovascular Disease
DX: R07.89 Other chest pain (principal); Z53.29 Procedure and treatment not carried out because of patient's decision for other reasons
CPT/HCPCS: 78451; 93017; A9502; J2785